=== PATIENT | female | born 1960 | race Caucasian/White ===

== ENCOUNTER 2018-11-30 17:50 | Observation (INO) ==
[2018-11-30] MEDS ORDERED: Ondansetron 4 MG/2 ML VIAL IVP ONE (18:51)
[2018-11-30] MEDS ORDERED: *HR* OxyCODONE/APAP 5/325 TABLET PO ONE (18:53)
[2018-11-30 19:14] LABS: Basophils % 0.2 %; Eosinophils % 0.1 %; Hematocrit 47.7 % (35.3-44.9); Hemoglobin 15.5 g/dL (11.5-15.4); Immature Granulocytes % 0.4 % (0-4); Lymphocytes # 0.5 K/mcL (0.6-4.6); Mean Corpuscular HGB Conc 32.5 g/dL (31.6-35.5); Mean Corpuscular Hemoglobin 28.9 pg (28.0-33.3); Mean Platelet Volume 8.6 fL (9.4-12.4); Monocytes # 0.4 K/mcL (0.0-1.3); Monocytes % 4.1 %; Neutrophils # 8.1 K/mcL (1.6-8.9); Platelet Count 194 K/mcL (140-400); Red Blood Count 5.36 M/mcL (3.82-4.97); Red Cell Distribution Width 13.9 % (11.5-14.5); Segmented Neutrophils % 90.2 %; White Blood Count 8.9 K/mcL (4.3-11.1)
--- NOTE | 2018-11-30 19:15 | Emergency Department Note ---
Disposition Clinical Impression: Fall Qualifiers: Encounter type: initial encounter Qualified Code(s): W19.XXXA - Unspecified fall, initial encounter Syncope Qualifiers: Syncope type: unspecified Qualified Code(s): R55 - Syncope and collapse Disposition: Admitted As Inpatient Condition: Fair Time of Disposition: 22:00 Fall HPI - General Chief Complaint: ED Fall Stated Complaint: FALL/WEAKNESS Time Seen by Provider: 11/30/18 18:17 Source: patient, family Limitations: no limitations Nursing Notes Reviewed: Yes Vital Signs Reviewed: Yes - History of Present Illness HPI Narrative: Ms. 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 She thinks she fell sometime this morning and was beside her bed when she woke up. She called family around 4:20 PM after she dragged herself to the phone. She had difficulty getting up because her legs were "shaking" and felt weak. Family reports she was slurring her speech on the phone and was difficult to understand. She is unclear if there are any preceding symptoms. Per family she was acting normally yesterday. Currently she is complaining of headache, non-radiating chest pain, chills, generalized weakness, abdominal pain, and nausea. She denies fevers, rashes, vision changes, dyspnea, cough, vomiting, change in bowels, hematochezia, dysuria, or edema. Of note she finished chemo several months ago and latest imaging of her chest showed clearance of her cancer. - Related Data Home Medications Medication Instructions Recorded Confirmed BuPROPion SR (12 HR) [Wellbutrin 300 mg PO BID 02/11/18 11/30/18 SR] Budesonide/Formoterol 160/4.5 2 puff IH BIDR 02/11/18 11/30/18 [Symbicort 160/4.5] Ezetimibe [Zetia] 10 mg PO DAILY 02/11/18 11/30/18 Insulin Regular U-500 [HumuLIN R 50 unit SQ TIDWM 02/11/18 11/30/18 U-500] Ipratropium/Albuterol Neb [Duoneb] 3 ml IH Q6HR 02/11/18 11/30/18 LORazepam [Ativan] 1 mg PO TID 02/11/18 11/30/18 Metoprolol Tartrate [Lopressor] 25 mg PO BID 02/11/18 11/30/18 Nitroglycerin [Nitrostat] 0.4 mg SL DAILY PRN 02/11/18 11/30/18 Roflumilast [Daliresp] 500 mcg PO DAILY 02/11/18 11/30/18 Sertraline [Zoloft] 150 mg PO DAILY 05/14/18 11/30/18 Albuterol Sulfate [Proair Hfa] 2 puff IH Q6H 06/16/18 11/30/18 Previous Rx's Medication Instructions Recorded Magic Mouthwash [Magic Mouthwash 10 ml PO Q2H PRN #960 ml 06/03/18 BLM] Benzonatate [Tessalon] 100 mg PO TID PRN #60 capsule 06/23/18 Sucralfate [Carafate] 1 gm PO QIDAC PRN #120 tablet 07/02/18 Metoclopramide [Reglan] 10 mg PO QIDAC 30 Days #1200 ml 07/14/18 Loperamide [Imodium] 2 mg PO Q4HR PRN #30 capsule 08/11/18 Fluconazole [Diflucan] 100 mg PO DAILY 7 Days #7 tablet 09/04/18 Ondansetron [Zofran ODT] 8 mg SL Q8H PRN #30 tab 09/25/18 GuaiFENesin/Codeine [Robitussin 10 - 20 ml PO Q6HR PRN 8 Days #480 10/06/18 w/Codeine] liquid MethylPREDNISolone 4 mg PO DAILY #21 tab 10/06/18 [MethylPREDNISolone Dose Pack] Loteprednol Etabonate [Lotemax] 1 appl OP BID #1 oint...g. 10/07/18 Allergies Allergy/AdvReac Type Severity Reaction Status Date / Time eszopiclone [From Lunesta] Allergy Anxiety Verified 08/11/18 09:27 gabapentin [From Neurontin] Allergy Vomiting Verified 08/11/18 09:27 meperidine [From Demerol] Allergy Itching Verified 08/11/18 09:27 metformin Allergy Diarrhea Verified 08/11/18 09:27 Review of Systems: Admits to headache, non-radiating chest pain, chills, generalized weakness, abdominal pain, and nausea. Denies fevers, rashes, vision changes, dyspnea, cough, vomiting, change in bowels, hematochezia, dysuria, or edema. Fall PMH - Past Medical History Medical history: Reports: arthritis, cancer, COPD, diabetes, fibromyalgia, hyperlipidemia, hypertension Surgical history: Reports: cholecystectomy, hysterectomy Psychiatric history: Reports: anxiety, depression, panic disorder - Social History Smoking Status: Current every day smoker Alcohol use: Reports: none Drug use: Reports: none Physical Exam GEN: No acute distress, A&O3 HEAD: Atraumatic, normocephalic EYES: Pupils symmetric and reactive to light, sclera white, conjunctiva pink HEART: RRR, normal S1 and S2, no murmurs LUNGS: Clear to auscultation bilaterally, no wheezes, rhonchi, or crackles ABD: Soft, moderate epigastric/LUQ/suprapubic tenderness, nondistended, no guarding or rigidity EXT: No edema noted, pulses 2/4 NEURO: No focal deficits, cooperative with exam, normal speech, sensation to light touch intact, strength equal and symmetric in UE and LE - General Limitations: no limitations General appearance: alert Course Vital Signs Temperature 97.8 F 11/30/18 17:57 Pulse Rate 89 11/30/18 17:57 Respiratory Rate 22 11/30/18 17:57 Blood Pressure 145/66 11/30/18 17:57 O2 Sat by Pulse Oximetry 100 11/30/18 17:57 Temperature 97.8 F 11/30/18 17:57 Pulse Rate 90 11/30/18 21:03 Respiratory Rate 14 11/30/18 21:03 Blood Pressure 147/64 11/30/18 21:03 O2 Sat by Pulse Oximetry 99 11/30/18 21:03 Oxygen Delivery Oxygen Delivery Room Air Fall - [facility] Narrative Medical decision making narrative: 58-year-old female with fall of unclear cause. She is nontoxic in appearance. There are no focal findings on neuro exam. Per family she is acting at her baseline now, but did have slurred speech earlier in the day. Labs show glucose of 56 and Hgb of 15. Otherwise CBC, BMP, lactic acid, CK, troponin and UA are normal. Chest x-ray shows no acute abnormalities. Head CT shows no acute abnormalities. CT of the cervical spine shows chronic degenerative changes. CT abdomen and pelvis shows no acute findings, but does comment on nonobstructing bilateral renal stones. With her now resolved confusion and speech difficulties, leading differential diagnoses are seizure or TIA. With her history of cancer, there would be concern of metastasis to the brain that can lead to seizure. This could be further evaluated with EEG, MRI, or neurology consult. Since the fall is so unclear, I feel it is not safe for her to go home at this time, and she could benefit from further evaluation in the hospital. Patient family are in agreement. Discussed the case with Dr. De La Fuente, who is accepting the patient for admission. - Lab Data Lab results reviewed: Yes I reviewed the patient's lab results. Result diagrams: 12/01/18 01:40 12/01/18 01:40 Lab Results 11/30/18 11/30/18 11/30/18 Range/Units 18:20 18:52 18:52 WBC 8.9 (4.3-11.1) K/mcL RBC 5.36 H (3.82-4.97) M/mcL Hgb 15.5 H (11.5-15.4) g/dL Hct 47.7 H (35.3-44.9) % MCV 89.0 (83.0-100.0) fL MCH 28.9 (28.0-33.3) pg MCHC 32.5 (31.6-35.5) g/dL RDW 13.9 (11.5-14.5) % Plt Count 194 (140-400) K/mcL MPV 8.6 L (9.4-12.4) fL Immature Gran % 0.4 (0-4) % Seg Neutrophils % 90.2 % Lymphocytes % 5.0 % Monocytes % 4.1 % Eosinophils % 0.1 % Basophils % 0.2 % Neutrophils # 8.1 (1.6-8.9) K/mcL Lymphocytes # 0.5 L (0.6-4.6) K/mcL Monocytes # 0.4 (0.0-1.3) K/mcL Eosinophils # 0.0 (0.0-0.6) K/mcL Basophils # 0.0 (0.0-0.2) K/mcL Sodium 141 (136-145) mEq/L Potassium 4.2 (3.5-5.1) mEq/L Chloride 101 (98-107) mEq/L Carbon Dioxide 29 (23-29) mEq/L BUN 10 (8-23) mg/dL Creatinine 0.59 L (0.60-1.20) mg/dL Est GFR ( Amer) > 60 (> 60) Est GFR (Non-Af Amer) > 60 (> 60) BUN/Creatinine Ratio 17 (6-26) Glucose 56 L (70-105) mg/dL Calculated Osmolality 289 (280-300) Lactic Acid (0.5-2.2) mmol/L Calcium 10.0 (8.6-10.3) mg/dL Total Bilirubin 0.4 (0.3-1.0) mg/dL AST 20 (13-39) Units/L ALT 22 (7-52) Units/L Alkaline Phosphatase 75 (34-104) Units/L Creatine Kinase (30-223) Units/L Troponin I < 0.03 (< 0.04) ng/mL Serum Total Protein 7.9 (6.4-8.9) g/dL Albumin 4.8 (3.5-5.7) g/dL Globulin 3.1 (2.4-3.5) g/dL Albumin/Globulin Ratio 1.5 (1.1-2.2) Urine Color Yellow (Yellow) Urine Clarity Clear (Clear) Urine pH 6.5 (5.0-8.0) pH Units Ur Specific [place] 1.011 (1.010-1.025) Urine Protein Trace (Neg-Trace) mg/dL Urine Glucose (UA) 100 H (Normal) mg/dL Urine Ketones Negative (Negative) mg/dL Urine Blood Negative (Negative) Urine Nitrite Negative (Negative) Urine Bilirubin Negative (Negative) Urine Urobilinogen Normal (Normal) mg/dL Ur Leukocyte Esterase Negative (Negative) Ur Culture Indicated? NO (NO) 11/30/18 11/30/18 Range/Units 18:52 18:59 WBC (4.3-11.1) K/mcL RBC (3.82-4.97) M/mcL Hgb (11.5-15.4) g/dL Hct (35.3-44.9) % MCV (83.0-100.0) fL MCH (28.0-33.3) pg MCHC (31.6-35.5) g/dL RDW (11.5-14.5) % Plt Count (140-400) K/mcL MPV (9.4-12.4) fL Immature Gran % (0-4) % Seg Neutrophils % % Lymphocytes % % Monocytes % % Eosinophils % % Basophils % % Neutrophils # (1.6-8.9) K/mcL Lymphocytes # (0.6-4.6) K/mcL Monocytes # (0.0-1.3) K/mcL Eosinophils # (0.0-0.6) K/mcL Basophils # (0.0-0.2) K/mcL Sodium (136-145) mEq/L Potassium (3.5-5.1) mEq/L Chloride (98-107) mEq/L Carbon Dioxide (23-29) mEq/L BUN (8-23) mg/dL Creatinine (0.60-1.20) mg/dL Est GFR ( Amer) (> 60) Est GFR (Non-Af Amer) (> 60) BUN/Creatinine Ratio (6-26) Glucose (70-105) mg/dL Calculated Osmolality (280-300) Lactic Acid 1.7 (0.5-2.2) mmol/L Calcium (8.6-10.3) mg/dL Total Bilirubin (0.3-1.0) mg/dL AST (13-39) Units/L ALT (7-52) Units/L Alkaline Phosphatase (34-104) Units/L Creatine Kinase 208 (30-223) Units/L Troponin I (< 0.04) ng/mL Serum Total Protein (6.4-8.9) g/dL Albumin (3.5-5.7) g/dL Globulin (2.4-3.5) g/dL Albumin/Globulin Ratio (1.1-2.2) Urine Color (Yellow) Urine Clarity (Clear) Urine pH (5.0-8.0) pH Units Ur Specific [place] (1.010-1.025) Urine Protein (Neg-Trace) mg/dL Urine Glucose (UA) (Normal) mg/dL Urine Ketones (Negative) mg/dL Urine Blood (Negative) Urine Nitrite (Negative) Urine Bilirubin (Negative) Urine Urobilinogen (Normal) mg/dL Ur Leukocyte Esterase (Negative) Ur Culture Indicated? (NO) - Radiology Data Radiology results reviewed: Yes I reviewed the patient's radiology results. - EKG Data EKG attestation: Yes I reviewed and interpreted this EKG. EKG results narrative: sinus rhythm, HR 85, PACs, and no ischemic changes Attestation Statement - Attestation Attestation: I, Tyson Crisostomo, examined this patient and my medical decision-making was reviewed with the DIE SIZER/PA/Advanced Practice Nurse/Resident Physician. I agree with the documented findings, disposition and treatment plan as described except to the extent set forth below. 58-year-old female presents emergency Department with concerns of fall and weakness. Patient states she believes that she was getting up and walking the bathroom during the night. The next thing she remembers is waking up on the g round and unable to stand. Patient states she had intermittent shaking of the bilateral upper and lower extremities however she remembers these episodes. Patient has a history of small cell lung cancer, she recently completed a round of chemotherapy. She had what she described as "prophylactic radiation of the brain" but has not had metastasis to the brain as of yet. She has refused outpatient MRI secondary to her increased anxiety in the past. Laboratory evaluation does not reveal significant abnormality for her baseline. CT of the head and neck does not reveal acute fracture or internal hemorrhage. CT of the abdomen pelvis does not reveal acute pathology. Patient was updated regarding laboratory and imaging results. Patient will be brought in the emergency department for evaluation of syncope versus seizure in addition to weakness.
[2018-11-30 19:23] LABS: Bilirubin,Urine Negative (Negative); Blood,Urine Negative (Negative); Clarity,Urine Clear (Clear); Color,Urine Yellow (Yellow); Glucose,Urine (UA) 100 mg/dL (Normal); Ketones,Urine Negative (Negative); Leukocyte Esterase,Urine Negative (Negative); Nitrite,Urine Negative (Negative); PH,Urine 6.5 pH Units (5.0-8.0); Protein,Urine Trace mg/dL (Neg-Trace); Specific Gravity,Urine 1.011 (1.010-1.025); Urobilinogen,Urine Normal (Normal)
[2018-11-30 19:26] LABS: Alanine Aminotransferase 22 Units/L (7-52); Albumin 4.8 g/dL (3.5-5.7); Albumin/Globulin Ratio 1.5 (1.1-2.2); Alkaline Phosphatase 75 Units/L (34-104); Aspartate Amino Transferase 20 Units/L (13-39); BUN/Creatinine Ratio 17 (6-26); Bilirubin,Total 0.4 mg/dL (0.3-1.0); Blood Urea Nitrogen 10 mg/dL (8-23); Carbon Dioxide 29 mEq/L (23-29); Chloride 101 mEq/L (98-107); Globulin 3.1 g/dL (2.4-3.5); Glucose 56 mg/dL (70-105); Osmolality,Calculated 289 (280-300); Potassium 4.2 mEq/L (3.5-5.1); Sodium 141 mEq/L (136-145); Total Protein 7.9 g/dL (6.4-8.9); Troponin I < 0.03 ng/mL (< 0.04); eGFR For African Americans > 60 (> 60); eGFR For Non-African Americans > 60 (> 60)
[2018-11-30] MEDS ORDERED: *HR* LORazepam 1 MG TABLET PO ONE (21:15)
[2018-11-30] MEDS: Nicotine 21 MG PATCH.TD24 TD SCH (21:23)
[2018-11-30] MEDS ORDERED: Naloxone 0.4 MG/ML INJ IVP PRN (22:33)
--- NOTE | 2018-11-30 22:46 | Internal Med History&Physical ---
<Suha Titus Jeff - Last Filed: 12/01/18 04:44> Date of Encounter: 12/01/18 Time of Encounter: 01:00 Internal Medicine - H&P: HPI Chief complaint: Syncope Admitted From: Home History of present illness: Ms. Loza is a 58 year old female with past medical history of small cell lung cancer, coronary artery disease, and hypertension. Patient presented to the ED after waking up on the floor unable to walk. Patient states she is awake during the night and sleeps during the day. Patient ate dinner at night and went to bed about 8 AM on 11/30/18. Patient remembers going to sleep with her CPAP on, although hours later does remember awakening to use the restroom. Patient thinks she went back to bed but afterwards remembers waking up on the floor next to the bed. Patient states upon awakening she felt excruciating pain 10 out of 10 in the lower back hips and legs bilaterally. Patient states legs were numb and tingling bilaterally. Patient denies blurred vision or dizziness. Patient does recall waking up at bedside closer to her night stand, but states she did not have any pain on her head. Patient states she did have full control of her upper extremities. Patient denies chest pain, shortness of breath, nausea, vomiting, dizziness, blurred vision. Patient does admit to confusion. Close to 4pm patient was able to crawl to the restroom close to her bedroom to call her children patients children heard slurred speech over the phone and decided to call EMS. Patient has recently completed a course of prophylactic radiation to the brain, radiation to the chest and chemotherapy in the beginning of October. Patient remains a smoker of one pack per day for 47 years. Patient has been admitted due to concerns of weakness and slurred speech. Past Med Surg Social Fam HX - Past Medical History Medical history: arthritis, cancer, COPD, diabetes, fibromyalgia, hyperlipidemia, hypertension Additional medical history: lung cancer Psychiatric history: anxiety, depression, panic disorder - Past Surgical History Surgical History: cholecystectomy, hysterectomy Additional surgical history: TONSILS,vocal polyps, - Social History Smoking Status: Current every day smoker Smokeless Tobacco Status: No Alcohol use: none Drug use: none - Family History Mother Living Status: Age at : 61 Cause of : COPD Father Living Status: Age at : 52 Cause of : lung cancer Internal Medicine - H&P: Meds BuPROPion SR (12 HR) [Wellbutrin SR] 300 mg PO BID 02/11/18 [History] Budesonide/Formoterol 160/4.5 [Symbicort 160/4.5] 2 puff IH BIDR 02/11/18 [History] Ezetimibe [Zetia] 10 mg PO DAILY 02/11/18 [History] Insulin Regular U-500 [HumuLIN R U-500] 50 unit SQ TIDWM 02/11/18 [History] Ipratropium/Albuterol Neb [Duoneb] 3 ml IH Q6HR 02/11/18 [History] LORazepam [Ativan] 1 mg PO TID 02/11/18 [History] Metoprolol Tartrate [Lopressor] 25 mg PO BID 02/11/18 [History] Nitroglycerin [Nitrostat] 0.4 mg SL DAILY PRN 02/11/18 [History] Roflumilast [Daliresp] 500 mcg PO DAILY 02/11/18 [History] Sertraline [Zoloft] 150 mg PO DAILY 05/14/18 [History] Magic Mouthwash [Magic Mouthwash BLM] 10 ml PO Q2H PRN #960 ml 06/03/18 [Rx] Albuterol Sulfate [Proair Hfa] 2 puff IH Q6H 06/16/18 [History] Benzonatate [Tessalon] 100 mg PO TID PRN #60 capsule 06/23/18 [Rx] Sucralfate [Carafate] 1 gm PO QIDAC PRN #120 tablet 07/02/18 [Rx] Metoclopramide [Reglan] 10 mg PO QIDAC 30 Days #1200 ml 07/14/18 [Rx] Loperamide [Imodium] 2 mg PO Q4HR PRN #30 capsule 08/11/18 [Rx] Fluconazole [Diflucan] 100 mg PO DAILY 7 Days #7 tablet 09/04/18 [Rx] Ondansetron [Zofran ODT] 8 mg SL Q8H PRN #30 tab 09/25/18 [Rx] GuaiFENesin/Codeine [Robitussin w/Codeine] 10 - 20 ml PO Q6HR PRN 8 Days #480 li quid 10/06/18 [Rx] MethylPREDNISolone [MethylPREDNISolone Dose Pack] 4 mg PO DAILY #21 tab 10/06/18 [Rx] Loteprednol Etabonate [Lotemax] 1 appl OP BID #1 oint...g. 10/07/18 [Rx] Allergy/AdvReac Type Severity Reaction Status Date / Time eszopiclone [From Lunesta] Allergy Anxiety Verified 08/11/18 09:27 gabapentin [From Neurontin] Allergy Vomiting Verified 08/11/18 09:27 meperidine [From Demerol] Allergy Itching Verified 08/11/18 09:27 metformin Allergy Diarrhea Verified 08/11/18 09:27 All Systems PM: A 10-system review of systems was performed and is negative for pertinent findings except as documented above in the HPI. Review of systems: Constitutional: Denies Fever, Chills, Dizziness Respiratory: Denies Shortness of breath, hemoptysis, Dyspnea at rest, or activity Cardiovascular: Denies Chest pain, Peripheral edema , palpitations Gastrointestinal: Denies hematochezia, nausea, vomiting , admits occasional Abdominal pain Genitourinary: Denies Painful urination, hematuria, urinary retention Endocrine: denies unintentional Significant weight changes Skin: Denies rashes, or unexplained bruising - Constitutional Vitals: Temp Pulse Resp BP Pulse Ox 97.8 F 90 14 147/64 99 11/30/18 17:57 11/30/18 21:03 11/30/18 21:03 11/30/18 21:03 11/30/18 21:03 Exam: Gen: alert/oriented, no acute distress. no dysarthria noted, clear speech. Head: atraumatic, normocephalic. non tender to palpation ENT: EOMI, JESÚS, no oropharyngeal erythema, mucous membranes moist, Neck: No thyromegaly appreciated. Neck supple no cervical lymphadenopathy. Resp: CTAB, no wheezing, mild rhonchi in L lower lung bases, or rhales. CV: RRR, Normal S1 and S2. No murmur, gallops, or rubs. GI/Abdominal exam: obese, bowel sounds x4, soft, non-tender, non- distended; no hepatosplenomegaly Skin: intact; no rashes, lesions, or bruising. Ext: No cyanosis or edema. pulses +2/4 bilaterally UE and LE. Neuro: strength 3/5 in RUE, 5/5 in LUE, 5/5 in LE b/l; sensation intact UE and LE b/l; +2/4 DTR UE and LE b/l; stuttering finger to nose test bilaterally, cooperative with exam. Internal Med - H&P Results - Labs CBC & Chem 7: 12/01/18 01:40 12/01/18 01:40 Labs: Short CBC 11/30/18 Range/Units 18:52 WBC 8.9 (4.3-11.1) K/mcL Hgb 15.5 H (11.5-15.4) g/dL Hct 47.7 H (35.3-44.9) % Plt Count 194 (140-400) K/mcL Neutrophils # 8.1 (1.6-8.9) K/mcL BMP 11/30/18 18:52 Sodium 141 Potassium 4.2 Chloride 101 Carbon Dioxide 29 BUN 10 Creatinine 0.59 L Glucose 56 L Calcium 10.0 Cardiac Enzymes 11/30/18 Range/Units 18:52 Troponin I < 0.03 (< 0.04) ng/mL Liver Function 11/30/18 Range/Units 18:52 Total Bilirubin 0.4 (0.3-1.0) mg/dL AST 20 (13-39) Units/L ALT 22 (7-52) Units/L Alkaline Phosphatase 75 (34-104) Units/L Albumin 4.8 (3.5-5.7) g/dL Urine 11/30/18 Range/Units 18:20 Urine Color Yellow (Yellow) Urine Clarity Clear (Clear) Urine pH 6.5 (5.0-8.0) pH Units Ur Specific [place] 1.011 (1.010-1.025) Urine Protein Trace (Neg-Trace) mg/dL Urine Glucose (UA) 100 H (Normal) mg/dL - Impressions ITS Impressions Chest X-Ray 11/30/18 18:41 IMPRESSION: 1. No acute cardiopulmonary disease. D/ / Hoa Glez MD / Hoa Glez MD Interpreting Provider: Hoa Glez MD Abdomen/Pelvis CT 11/30/18 18:55 IMPRESSION: 1. No CT evidence of acute traumatic abnormality involving the abdomen or pelvis. 2. Bilateral nephrolithiasis without hydronephrosis or ureter calculus evident. 3. Cholecystectomy. 4. Stable benign adenoma right adrenal gland requires no additional evaluation or follow-up. D/ / Kavin Sainz / Kavin Sainz Interpreting Provider: Kavin Sainz Cervical Spine CT 11/30/18 18:55 IMPRESSION: No acute intracranial abnormality. Degenerative changes involving the cervical spine described above. No cervical fracture or acute traumatic subluxation. Grade 1 degenerative anterolisthesis C4 on C5. Emphysema. Note that if pain persists or worsens, or if clinically there is concern for CT occult acute cervical abnormality, flexion/extension C-spine series or MRI cervical spine may be considered for additional evaluation. D/ / Kavin Sainz / Kavin Sainz Interpreting Provider: Kavin Sainz Head CT 11/30/18 18:55 IMPRESSION: No acute intracranial abnormality. Degenerative changes involving the cervical spine described above. No cervical fracture or acute traumatic subluxation. Grade 1 degenerative anterolisthesis C4 on C5. Emphysema. Note that if pain persists or worsens, or if clinically there is concern for CT occult acute cervical abnormality, flexion/extension C-spine series or MRI cervical spine may be considered for additional evaluation. D/ / Kavin Sainz / Kavin Sainz Interpreting Provider: Kavin Sainz - Assessment and Plan (1) Weakness Current Visit: Yes Status: Acute Assessment and plan: He was 58-year-old female with history of small cell lung cancer having completed last radiation and chemotherapy to brain and chest one month ago. She presents today after a syncopal episode and weakness to lower extremities. On arrival to ED patient was hemodynamically stable, and afebrile. A UA, CBC, creatinine kinase, chest x-ray were completed which were within normal limits and showed no acute cardiopulmonary disease. CT abdomen and pelvis showed bilateral nephrolithiasis without hydronephrosis but otherwise normal. Patient's head CT showed degenerative changes with cervical spine otherwise unremarkable. With current imaging and labs there are no signs of infection. Although the patient's past medical history and current presentation is important to rule out CVA, TIA, metastases to brain, metastases to spine, myelopathy, infection. Plan: - Upon speaking to the patient, patient cannot tolerate MRI due to phobia. We will obtain CT angiogram of head. - She is encouraged to obtain open MRI of brain on outpatient basis. - 1 L normal saline - We will repeat troponin - Place on telemetry, pulse ox. - Obtain transthoracic echo - Obtain lipid panel - Obtain hemoglobin A1c - Fall precautions - Neuro checks every 4 - PT/OT consult (2) Hypoglycemia Current Visit: Yes Status: Acute Assessment and plan: On arrival to ED patient was found to have a glucose of 56. Plan; -Hypoglycemic precautions. -Accu-Cheks at bedtime and before meals. - Basal insulin before bedtime. - Sliding scale insulin before meals (3) Diabetes Current Visit: Yes Status: Acute Assessment and plan: Patient is currently a type II diabetic and on arrival to ED was found to be hypoglycemic. Will maintain blood glucose control during admission. Plan; -Sliding-scale insulin before meals -Basal insulin at bedtime -Accu-Cheks before meals and at bedtime. Qualifiers: Qualified Code(s): E11.9 - Type 2 diabetes mellitus without complications - Time Spent With Patient Total time spent is greater than 50% in coordination of care (as documented) at patient's floor/unit and/or counseling patient: <Bonita De La Fuente - Last Filed: 12/01/18 05:56> Date of Encounter: 12/01/18 All Systems PM: A 10-system review of systems was performed and is negative for pertinent findings except as documented above in the HPI. - Constitutional Vitals: Temp Pulse Resp BP Pulse Ox 98.2 F 104 16 137/77 92 11/30/18 22:47 11/30/18 22:47 11/30/18 22:47 11/30/18 22:47 11/30/18 22:47 Internal Med - H&P Results - Labs CBC & Chem 7: 12/01/18 01:40 12/01/18 01:40 Labs: Short CBC 11/30/18 Range/Units 18:52 WBC 8.9 (4.3-11.1) K/mcL Hgb 15.5 H (11.5-15.4) g/dL Hct 47.7 H (35.3-44.9) % Plt Count 194 (140-400) K/mcL Neutrophils # 8.1 (1.6-8.9) K/mcL BMP 11/30/18 18:52 Sodium 141 Potassium 4.2 Chloride 101 Carbon Dioxide 29 BUN 10 Creatinine 0.59 L Glucose 56 L Calcium 10.0 Cardiac Enzymes 11/30/18 Range/Units 18:52 Troponin I < 0.03 (< 0.04) ng/mL Liver Function 11/30/18 Range/Units 18:52 Total Bilirubin 0.4 (0.3-1.0) mg/dL AST 20 (13-39) Units/L ALT 22 (7-52) Units/L Alkaline Phosphatase 75 (34-104) Units/L Albumin 4.8 (3.5-5.7) g/dL Urine 11/30/18 Range/Units 18:20 Urine Color Yellow (Yellow) Urine Clarity Clear (Clear) Urine pH 6.5 (5.0-8.0) pH Units Ur Specific [place] 1.011 (1.010-1.025) Urine Protein Trace (Neg-Trace) mg/dL Urine Glucose (UA) 100 H (Normal) mg/dL - Impressions ITS Impressions Chest X-Ray 11/30/18 18:41 IMPRESSION: 1. No acute cardiopulmonary disease. D/ / Hoa Glez MD / Hoa Glez MD Interpreting Provider: Hoa Glez MD Abdomen/Pelvis CT 11/30/18 18:55 IMPRESSION: 1. No CT evidence of acute traumatic abnormality involving the abdomen or pelvis. 2. Bilateral nephrolithiasis without hydronephrosis or ureter calculus evident. 3. Cholecystectomy. 4. Stable benign adenoma right adrenal gland requires no additional evaluation or follow-up. D/ / Kavin Sainz / Kavin Sainz Interpreting Provider: Kavin Sainz Cervical Spine CT 11/30/18 18:55 IMPRESSION: No acute intracranial abnormality. Degenerative changes involving the cervical spine described above. No cervical fracture or acute traumatic subluxation. Grade 1 degenerative anterolisthesis C4 on C5. Emphysema. Note that if pain persists or worsens, or if clinically there is concern for CT occult acute cervical abnormality, flexion/extension C-spine series or MRI cervical spine may be considered for additional evaluation. D/ / Kavin Sainz / Kavin Sainz Interpreting Provider: Kavin Sainz Head CT 11/30/18 18:55 IMPRESSION: No acute intracranial abnormality. Degenerative changes involving the cervical spine described above. No cervical fracture or acute traumatic subluxation. Grade 1 degenerative anterolisthesis C4 on C5. Emphysema. Note that if pain persists or worsens, or if clinically there is concern for CT occult acute cervical abnormality, flexion/extension C-spine series or MRI cervical spine may be considered for additional evaluation. D/ / Kavin Sainz / Kavin Sainz Interpreting Provider: Kavin Sainz - Time Spent With Patient Total time spent is greater than 50% in coordination of care (as documented) at patient's floor/unit and/or counseling patient: - Attending Attestation I performed a history and physical exam of the patient on 11/30/18 and discussed management with the resident. I reviewed the resident's note and agree with the documented findings and plan of care. Fide Loza is a 58-year-old obese woman with COPD secondary to tobacco use, obstructive sleep apnea and diabetes stage IIIa small cell carcinoma of the right lung who has underwent chemotherapy and radiation therapy as well as prophylactic cranial irradiation was brought to the emergency room by EMS after being down at home for an unspecified length of time. It is stated that she found herself on the floor beside her bed when she woke up this morning and she was unable to get up because she was weak but ultimately was able to drag herself to the phone around 4 PM where she called her family who noted that her speech was slurred and therefore called EMS. Family reported that over the past days she has been in her normal state of health without any acute issues. On arrival she had nonspecific complaints of headache, chest pain, generalized weakness, abdominal pain and nausea. Denies productive cough, fever, dysuria, vomiting or diarrhea. She has since completed her radiation and chemotherapeutic sessions 3 months ago. In the ER she was clinically and hemodynamically stable with family members acknowledging that she was at her baseline. Her lab and urine studies were grossly within normal limits. Compared to CT images showed no acute findings. She is admitted for observation. Physical exam is remarkable for no focal deficits. She reports feeling well and has no complaints but says she cant explain what happened to her. It is unclear if she had a mechanical fall and forgot or she rolled out from bed but more importantly differentials include TIA given the episode of slurred speech and difficulty with ambulation. Another differential is a seizure episode from possible brain mets and may have had a post ictal state and therefore could not remember what happened. A third differential to consider is hypoglycemia, noting her glucose on arrival was in the 50s. We will observe her on telemetry overnight and if there are any new symptoms or evolution she should undergo repeat brain imaging immediately. I suggested she have an MRI done in the morning however she refuses, stating she has panic disorder and claustrophob ia and cannot tolerate. Would advise that upon discharge she be followed by her primary physican and perhaps consideration be given towards an open MRI. YAQUELIN CHATTERJEE.
[2018-11-30] MEDS ORDERED: D5% in Water 1,000 ML IVC PRN (23:46)
[2018-11-30] MEDS ORDERED: Dextrose Gel 15 GM/37.5 ML TUBE PO PRN ×2 (23:46)
[2018-11-30] MEDS ORDERED: *HR* Dextrose 50 % in Water (Syg) 50 ML SYRINGE IVP PRN (23:46)
[2018-11-30] MEDS ORDERED: *HR* OxyCODONE Immed Rel 5 MG TABLET PO PRN (23:54)
[2018-11-30] MEDS ORDERED: Acetaminophen 325 MG TABLET PO PRN (23:54)
[2018-11-30] MEDS ORDERED: traMADol 50 MG TABLET PO PRN (23:54)
[2018-12-01 02:25] LABS: Basophils % 0.3 %; Eosinophils # 0.1 K/mcL (0.0-0.6); Eosinophils % 0.6 %; Hematocrit 41.9 % (35.3-44.9); Immature Granulocytes % 0.4 % (0-4); Lymphocytes % 12.3 %; Mean Corpuscular HGB Conc 31.7 g/dL (31.6-35.5); Mean Corpuscular Hemoglobin 28.1 pg (28.0-33.3); Mean Corpuscular Volume 88.4 fL (83.0-100.0); Mean Platelet Volume 8.9 fL (9.4-12.4); Monocytes # 0.5 K/mcL (0.0-1.3); Monocytes % 6.9 %; Neutrophils # 6.2 K/mcL (1.6-8.9); Platelet Count 189 K/mcL (140-400); Red Blood Count 4.74 M/mcL (3.82-4.97); Red Cell Distribution Width 13.8 % (11.5-14.5); Segmented Neutrophils % 79.5 %; White Blood Count 7.8 K/mcL (4.3-11.1)
[2018-12-01 02:29] LABS: Hemoglobin 13.3 g/dL (11.5-15.4); Prothrombin Time 11.7 Seconds (9.4-12.1)
[2018-12-01 02:46] LABS: Alanine Aminotransferase 17 Units/L (7-52); Albumin 4.2 g/dL (3.5-5.7); Albumin/Globulin Ratio 1.7 (1.1-2.2); Alkaline Phosphatase 64 Units/L (34-104); Aspartate Amino Transferase 19 Units/L (13-39); BUN/Creatinine Ratio 14 (6-26); Bilirubin,Total 0.4 mg/dL (0.3-1.0); Blood Urea Nitrogen 10 mg/dL (8-23); Calcium 9.6 mg/dL (8.6-10.3); Carbon Dioxide 28 mEq/L (23-29); Chloride 100 mEq/L (98-107); Chol/HDL Ratio 4.7 (0-4.9); Cholesterol 207 mg/dL (< 200); Globulin 2.5 g/dL (2.4-3.5); Glucose 123 mg/dL (70-105); HDL Cholesterol 44 mg/dL (40-59); LDL Cholesterol,Calculated 117 mg/dL (0-99); Magnesium 1.8 mg/dL (1.6-2.6); Osmolality,Calculated 288 (280-300); Potassium 3.8 mEq/L (3.5-5.1); Sodium 139 mEq/L (136-145); Total Protein 6.7 g/dL (6.4-8.9); Triglycerides 232 mg/dL (< 150); eGFR For African Americans > 60 (> 60); eGFR For Non-African Americans > 60 (> 60)
[2018-12-01] MEDS ORDERED: Isovue-370 500 ML BOTTLE IVP ONE (03:49)
[2018-12-01] MEDS ORDERED: Ipratropium/Albuterol Neb 3 ML IH SCH (04:00)
[2018-12-01] MEDS: 0.9 % Sodium Chloride 1,000 ML IVC SCH ×2 (06:01→17:39)
[2018-12-01] MEDS: Budesonide/Formoterol 160/4.5 1 PUFF INH IH SCH ×2 (07:44→20:24)
[2018-12-01] MEDS ORDERED: Sucralfate 1 GM TABLET PO PRN (07:47)
[2018-12-01] MEDS ORDERED: Benzonatate 100 MG CAPSULE PO PRN (07:47)
[2018-12-01] MEDS ORDERED: NON-FORMULARY MEDICATION 1 EACH EACH (Magic Mouthwash [Magic Mouthwash Blm] 10 ML) PO PRN (07:47)
[2018-12-01] MEDS: Ipratropium/Albuterol Neb 3 ML IH PRN ×3 (07:48→20:29)
[2018-12-01 08:34] LABS: Estimated Average Glucose 235 mg/dl
[2018-12-01] MEDS ORDERED: (Roflumilast [Daliresp] 500 MCG) PO SCH (09:00)
[2018-12-01] MEDS ORDERED: LOTEPREDNOL ETABONATE OP SCH (09:00)
[2018-12-01] MEDS ORDERED: ZETIA 10 MG PO SCH (09:00)
[2018-12-01] MEDS: *HR* LORazepam 1 MG TABLET PO SCH ×3 (09:33→21:19)
[2018-12-01] MEDS: Insulin LISPRO 300 UNITS/3 ML VIAL SQ SCH ×5 (09:33→17:31)
[2018-12-01] MEDS: BuPROPion SR (12 HR) 150 MG TABLET PO SCH ×2 (09:33→21:20)
[2018-12-01] MEDS: Fluconazole 100 MG TABLET PO SCH (09:34)
[2018-12-01] MEDS: Aspirin Enteric Coated 81 MG Tablet PO SCH (09:35)
[2018-12-01] MEDS: Nicotine 21 MG PATCH.TD24 TD SCH (09:35)
--- NOTE | 2018-12-01 10:35 | Internal Med Progress Note ---
Hospitalist Progress Note - Encounter Date of Encounter: 12/01/18 Time of Encounter: 10:32 - Subjective Interval History: Ms. Loza is a 58 year old female with past medical history of small cell lung cancer, coronary artery disease, and hypertension. Patient presented to the ED after waking up on the floor unable to walk. Patient states she is awake during the night and sleeps during the day. Patient ate dinner at night and went to bed about 8 AM on 11/30/18. Patient remembers going to sleep with her CPAP on, although hours later does remember awakening to use the restroom. Patient thinks she went back to bed but afterwards remembers waking up on the floor next to the bed. Patient states upon awakening she felt excruciating pain 10 out of 10 in the lower back hips and legs bilaterally. Patient states legs were numb and tingling bilaterally. Patient denies blurred vision or dizziness. Patient does recall waking up at bedside closer to her night stand, but states she did not have any pain on her head. Patient states she did have full control of her upper extremities. Patient denies chest pain, shortness of breath, nausea, vomiting, dizziness, blurred vision. Patient does admit to confusion. Close to 4pm patient was able to crawl to the restroom close to her bedroom to call her children patients children heard slurred speech over the phone and decided to call EMS. Patient has recently completed a course of prophylactic radiation to the brain, radiation to the chest and chemotherapy in the beginning of October. Patient remains a smoker of one pack per day for 47 years. Patient has been admitted due to concerns of weakness and slurred speech. Patient seen and examined in the room. She reported she was able to lift up both lower extremities. She did report back pain and bilateral leg pain. She endorsed she complete whole brain radiation in October and his last chemotherapy was couple months ago. Overnight, she reported absence of fever, chills, night sweats. She denies syncope, lightheadedness, or confusion. - Exam Vitals: Temp Pulse Resp BP Pulse Ox 98.5 F 111 16 112/61 93 12/01/18 07:59 12/01/18 07:59 12/01/18 07:59 12/01/18 07:59 12/01/18 07:59 Exam: Gen: alert/oriented, no acute distress. no dysarthria noted, clear speech. Head: atraumatic, normocephalic. non tender to palpation ENT: EOMI, JESÚS, no oropharyngeal erythema, mucous membranes moist, Neck: No thyromegaly appreciated. Neck supple no cervical lymphadenopathy. Resp: CTAB, no wheezing, mild rhonchi in L lower lung bases, or rhales. CV: RRR, Normal S1 and S2. No murmur, gallops, or rubs. GI/Abdominal exam: obese, bowel sounds x4, soft, non-tender, non- distended; no hepatosplenomegaly Skin: intact; no rashes, lesions, or bruising. Ext: No cyanosis or edema. pulses +2/4 bilaterally UE and LE. Neuro: strength 5/5 in RUE, 5/5 in LUE, 5/5 in LE b/l; sensation intact UE and LE b/l; +2/4 DTR UE and LE b/l; normal finger to nose test bilaterally, cooperative with exam. - Assessment and Plan (1) Fall Current Visit: Yes Status: Acute Assessment and Plan: Patient reported unwitnessed fall at home is associated paraplegia. CT of her head has no acute changes. Cervical spine reported degenerative change without fracture or spinal mass. Muscle strength of both legs symptoms return to baseline, although patient still reported bilateral leg pain on palpation and back pain. Patient recently received chemotherapy and radiation to brain because of lung cancer. CTA of her head was performed this morning, pending report. We will check vitamin B12, vitamin D, and TSH level. We will start patient on multivitamin B supplementation. Pending PT/OT evaluation. (2) Syncope Current Visit: Yes Status: Acute Assessment and Plan: We will check orthostatic BP. Given recent chemotherapy/radiation treatment, patient likely having physical deconditioning. Pending echocardiogram. (3) Weakness Current Visit: Yes Status: Acute Assessment and Plan: Bilateral leg weakness/unable to ambulate improved. Pending CTA report. Pending vitamin B12, vitamin D, TSH level. PT/OT consult, appreciate help. (4) Diabetes Current Visit: No Status: Chronic Assessment and Plan: Poorly controlled, A1c 9.8. Resume basal insulin at home dose, decrease bolus dose to half in addition to insulin sliding scale. And recently was started on oral steroids due to chemotherapy/radiation. We will adjust insulin dose based on Accu-Chek results. (5) Lung cancer Current Visit: No Status: Acute Assessment and Plan: Follow-up with Dr. Oakes and Dr. Ace as outpatient. - Time Spent with Patient Total time spent is greater than 50% in coordination of care (as documented) at patient's floor/unit and/or counseling patient: Greater than 35 minutes Plan of Care Discussed with: patient Internal Medicine: Result - Labs CBC & Chem 7: 12/01/18 01:40 12/01/18 01:40 Labs: Short CBC 11/30/18 12/01/18 Range/Units 18:52 01:40 WBC 8.9 7.8 (4.3-11.1) K/mcL Hgb 15.5 H 13.3 D (11.5-15.4) g/dL Hct 47.7 H 41.9 (35.3-44.9) % Plt Count 194 189 (140-400) K/mcL Neutrophils # 8.1 6.2 (1.6-8.9) K/mcL BMP 11/30/18 12/01/18 18:52 01:40 Sodium 141 139 Potassium 4.2 3.8 Chloride 101 100 Carbon Dioxide 29 28 BUN 10 10 Creatinine 0.59 L 0.71 Glucose 56 L 123 H Calcium 10.0 9.6 Cardiac Enzymes 11/30/18 Range/Units 18:52 Troponin I < 0.03 (< 0.04) ng/mL Liver Function 11/30/18 12/01/18 Range/Units 18:52 01:40 Total Bilirubin 0.4 0.4 (0.3-1.0) mg/dL AST 20 19 (13-39) Units/L ALT 22 17 (7-52) Units/L Alkaline Phosphatase 75 64 (34-104) Units/L Albumin 4.8 4.2 (3.5-5.7) g/dL Urine 11/30/18 Range/Units 18:20 Urine Color Yellow (Yellow) Urine Clarity Clear (Clear) Urine pH 6.5 (5.0-8.0) pH Units Ur Specific [place] 1.011 (1.010-1.025) Urine Protein Trace (Neg-Trace) mg/dL Urine Glucose (UA) 100 H (Normal) mg/dL - ABG Interpretation ABG results: PT/INR, D-dimer PT 11.7 Seconds (9.4-12.1) 12/01/18 01:40 - Impressions Impressions Chest X-Ray 11/30/18 18:41 IMPRESSION: 1. No acute cardiopulmonary disease. D/ / Hoa Glez MD / Hoa Glez MD Interpreting Provider: Hoa Glez MD Abdomen/Pelvis CT 11/30/18 18:55 IMPRESSION: 1. No CT evidence of acute traumatic abnormality involving the abdomen or pelvis. 2. Bilateral nephrolithiasis without hydronephrosis or ureter calculus evident. 3. Cholecystectomy. 4. Stable benign adenoma right adrenal gland requires no additional evaluation or follow-up. D/ / Kavin Sainz / Kavin Sainz Interpreting Provider: Kavin Sainz Cervical Spine CT 11/30/18 18:55 IMPRESSION: No acute intracranial abnormality. Degenerative changes involving the cervical spine described above. No cervical fracture or acute traumatic subluxation. Grade 1 degenerative anterolisthesis C4 on C5. Emphysema. Note that if pain persists or worsens, or if clinically there is concern for CT occult acute cervical abnormality, flexion/extension C-spine series or MRI cervical spine may be considered for additional evaluation. D/ / Kavin Sainz / Kavin Sainz Interpreting Provider: Kavin Sainz Head CT 11/30/18 18:55 IMPRESSION: No acute intracranial abnormality. Degenerative changes involving the cervical spine described above. No cervical fracture or acute traumatic subluxation. Grade 1 degenerative anterolisthesis C4 on C5. Emphysema. Note that if pain persists or worsens, or if clinically there is concern for CT occult acute cervical abnormality, flexion/extension C-spine series or MRI cervical spine may be considered for additional evaluation. D/ / Kavin Sainz / Kavin Sainz Interpreting Provider: Kavin Sainz Consult Discharge Plan - Plan Referrals: Nithin Lopez DO [Primary Care Provider] - (Appointment has been requested. ) (1) Fall Qualifiers: Encounter type: initial encounter Qualified Code(s): W19.XXXA - Unspecified fall, initial encounter (2) Syncope Qualifiers: Syncope type: unspecified Qualified Code(s): R55 - Syncope and collapse (4) Diabetes Qualifiers: Diabetes mellitus type: type 2 Diabetes mellitus complication status: with other specified complication (5) Lung cancer Qualifiers: Laterality: unspecified laterality Lung location: unspecified part of lung Qualified Code(s): C34.90 - Malignant neoplasm of unspecified part of unspecified bronchus or lung
[2018-12-01 11:45] LABS: Thyroid Stimulating Hormone 0.631 mcIU/mL (0.340-5.600)
[2018-12-01 11:54] LABS: Vitamin B12 304 pg/mL (250-1100); Vitamin D 25 Hydroxy 17 ng/mL (30-80)
[2018-12-01] MEDS: Vitamin B Complex/Vit C/Vit E 1 EACH TABLET PO SCH (12:30)
[2018-12-01] MEDS: GuaiFENesin/Codeine Oral Soln 5 ML UDC PO PRN ×2 (16:08→21:19)
[2018-12-01] MEDS: *HR* Heparin 5,000 UNIT/ML VIAL SQ SCH (17:32)
[2018-12-01] MEDS ORDERED: Insulin DETEMIR 100 UNIT/ML X5UNITS SQ SCH (21:00)
[2018-12-02 04:30] LABS: Mean Corpuscular HGB Conc 31.7 g/dL (31.6-35.5); Mean Corpuscular Hemoglobin 28.6 pg (28.0-33.3); Mean Corpuscular Volume 90.3 fL (83.0-100.0); Mean Platelet Volume 8.8 fL (9.4-12.4); Platelet Count 158 K/mcL (140-400); Red Blood Count 4.54 M/mcL (3.82-4.97); Red Cell Distribution Width 14.1 % (11.5-14.5); White Blood Count 4.9 K/mcL (4.3-11.1)
[2018-12-02 04:49] LABS: BUN/Creatinine Ratio 19 (6-26); Blood Urea Nitrogen 14 mg/dL (8-23); Calcium 9.1 mg/dL (8.6-10.3); Carbon Dioxide 24 mEq/L (23-29); Chloride 101 mEq/L (98-107); Glucose 347 mg/dL (70-105); Osmolality,Calculated 294 (280-300); Potassium 4.4 mEq/L (3.5-5.1); Sodium 135 mEq/L (136-145); eGFR For African Americans > 60 (> 60); eGFR For Non-African Americans > 60 (> 60)
[2018-12-02] MEDS: *HR* Heparin 5,000 UNIT/ML VIAL SQ SCH (05:34)
[2018-12-02] MEDS: Ipratropium/Albuterol Neb 3 ML IH PRN (07:51)
[2018-12-02] MEDS: Budesonide/Formoterol 160/4.5 1 PUFF INH IH SCH (07:51)
[2018-12-02] MEDS ORDERED: BuPROPion XL (24 HR) 150 MG TABLET PO SCH (09:00)
[2018-12-02] MEDS ORDERED: Cholecalciferol (D-3) 1,000 UNIT (25MCG) TABLET PO SCH (09:00)
[2018-12-02] MEDS: 0.9 % Sodium Chloride 1,000 ML IVC SCH ×2 (09:20→11:01)
[2018-12-02] MEDS: Fluconazole 100 MG TABLET PO SCH (09:21)
[2018-12-02] MEDS: Aspirin Enteric Coated 81 MG Tablet PO SCH (09:21)
[2018-12-02] MEDS: Insulin LISPRO 300 UNITS/3 ML VIAL SQ SCH ×4 (09:21→12:31)
[2018-12-02] MEDS: *HR* LORazepam 1 MG TABLET PO SCH (09:21)
[2018-12-02] MEDS: Nicotine 21 MG PATCH.TD24 TD SCH (09:22)
[2018-12-02] MEDS: Vitamin B Complex/Vit C/Vit E 1 EACH TABLET PO SCH (09:22)
[2018-12-02] MEDS: BuPROPion SR (12 HR) 150 MG TABLET PO SCH (09:49)
[2018-12-02] MEDS ORDERED: Perflutren Lipid Microsphere 1.3 ML in 0.9 % Sodium Chloride 8.7 ML IVP ONE (10:41)
[2018-12-02 12:30] VITALS: BP 135/85
[2018-12-02] MEDS: GuaiFENesin/Codeine Oral Soln 5 ML UDC PO PRN (12:30)
--- NOTE | 2018-12-02 13:22 | Discharge Summary ---
- NOTES TO OUTPATIENT PROVIDER Notes to Outpatient Provider: f/u with Dr. Painter and Dr. Jenkins within a week. f/u with PCP within one week. Orders not resulted at time of discharge: Pending orders 12/01/18 10:55 Vitamin D-1,25(reference test) Routine Date of Encounter: 12/02/18 Time of Encounter: 13:20 - Discharge Diagnosis (1) Fall Priority: Primary Status: Acute Qualifiers: Encounter type: initial encounter Qualified Code(s): W19.XXXA - Unspecified fall, initial encounter (2) Syncope Priority: Primary Status: Acute Qualifiers: Syncope type: unspecified Qualified Code(s): R55 - Syncope and collapse (3) Weakness Priority: Primary Status: Acute (4) Diabetes Priority: Secondary Status: Chronic Qualifiers: Diabetes mellitus type: type 2 Diabetes mellitus complication status: with other specified complication Qualified Code(s): E11.69 - Type 2 diabetes mellitus with other specified complication; 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 Loza is a 58 year old female with past medical history of small cell lung cancer, coronary artery disease, and hypertension. Patient presented to the ED after waking up on the floor unable to walk. Patient states she is awake during the night and sleeps during the day. Patient ate dinner at night and went to bed about 8 AM on 11/30/18. Patient remembers going to sleep with her CPAP on, although hours later does remember awakening to use the restroom. Patient thinks she went back to bed but afterwards remembers waking up on the floor next to the bed. Patient states upon awakening she felt excruciating pain 10 out of 10 in the lower back hips and legs bilaterally. Patient states legs were numb and tingling bilaterally. Patient states she did have full control of her upper extremities. Patient denies chest pain, shortness of breath, nausea, vomiting, dizziness, blurred vision. Patient does admit to confusion. Close to 4pm patient was able to crawl to the restroom close to her bedroom to call her children patients children heard slurred speech over the phone and decided to call EMS. Patient has recently completed a course of prophylactic radiation to the brain, radiation to the chest and chemotherapy in the beginning of October. Patient remains a smoker of one pack per day for 47 years. Patient was admitted due to concerns of weakness and slurred speech. Lab tests showed a normal TSH, free T4, vitamin B12, and low vitamin D. Vitamin D supplementation started. CT of head has no acute abnormalities. CTA of head showed no high-grade stenosis or focal occlusion involving the intracranial or cervical vasculature, no evidence of aneurysm.CT of cervical spine showed degenerative changes, no cervical fracture or acute traumatic subluxation, and Grade 1 degenerative anterolisthesis C4 on C5. CT of abd/pelvis showed: 1. No CT evidence of acute traumatic abnormality involving the abdomen or pelvis. 2. Bilateral nephrolithiasis without hydronephrosis or ureter calculus evident. 3. Cholecystectomy. 4. Stable benign adenoma right adrenal gland requires no additional evaluation or follow-up. Carotid Doppler LT ICA 40-59% stenosis based on tech data table, RT ICA nonstenotic plaque. ECHO: LVEF 55%. Normal left ventricular diastolic function. Normal LV chamber size, wall thickn ess and function. The right ventricle was not well visualized but appeared grossly normal in function. No evidence of PFO with agitated saline contrast. No evidence of pulmonary hypertension. No obvious significant valvular dysfunction. Bilateral leg weakness resolved after admission. On the discharge today, patient was able to ambulate with the help of a cane. She stated that she has returned to her baseline. PT/OT was consulted, however, patient refused home health care for ECF placement. She is discharged home today, her appointment with Dr. Painter and Dr. Ace will be rescheduled, she will also follow-up with PCP within a week. Discharge discussed with: patient Time spent discussing smoking cessation with patient: more than 10 minutes - Time Spent with Patient Total time spent providing and/or coordinating discharge services: Time spent: Greater than 30 minutes - Discharge Medications Prescriptions: New Vitamin B Complex/Vit C/Vit E [Stresstab] 1 each PO DAILY #30 tablet Cholecalciferol (D-3) [Vitamin D] 2,000 unit PO DAILY #30 tablet Continued Ipratropium/Albuterol Neb [Duoneb] 3 ml IH Q6HR Nitroglycerin [Nitrostat] 0.4 mg SL AD PRN PRN Reason: Chest Pain Ezetimibe [Zetia] 10 mg PO DAILY Budesonide/Formoterol 160/4.5 [Symbicort 160/4.5] 2 puff IH BIDR LORazepam [Ativan] 1 mg PO TID PRN PRN Reason: Anxiety Roflumilast [Daliresp] 500 mcg PO DAILY Sertraline [Zoloft] 200 mg PO DAILY Magic Mouthwash [Magic Mouthwash BLM] 10 ml PO Q2H PRN #960 ml PRN Reason: Pain Albuterol Sulfate [Proair Hfa] 2 puff IH Q6H PRN PRN Reason: Shortness Of Breath Sucralfate [Carafate] 1 gm PO QIDAC PRN #120 tablet PRN Reason: Heartburn Metoclopramide [Reglan] 10 mg PO QIDAC 30 Days #1200 ml Loperamide [Imodium] 2 mg PO Q4HR PRN #30 capsule PRN Reason: Diarrhea Ondansetron [Zofran ODT] 8 mg SL Q8H PRN #30 tab PRN Reason: Nausea GuaiFENesin/Codeine [ROBITUSSIN w/CODEINE] 10 - 20 ml PO Q6HR PRN 8 Days #480 liquid PRN Reason: Cough HYDROcodone/Acet 10/325 mg [[place] 10-325 mg] 1 - 2 tab PO Q8HR PRN PRN Reason: Pain Subcutaneous Insulin Pump [T:Slim] 1 each MC AD Bupropion HCl [Wellbutrin Xl] 300 mg PO DAILY Metoprolol [Lopressor] 25 mg PO BID Spironolactone [Aldactone] 25 mg PO DAILY Home Medications: Budesonide/Formoterol 160/4.5 [Symbicort 160/4.5] 2 puff IH BIDR 02/11/18 [History] Ezetimibe [Zetia] 10 mg PO DAILY 02/11/18 [History] Ipratropium/Albuterol Neb [Duoneb] 3 ml IH Q6HR 02/11/18 [History] LORazepam [Ativan] 1 mg PO TID PRN 02/11/18 [History] Nitroglycerin [Nitrostat] 0.4 mg SL AD PRN 02/11/18 [History] Roflumilast [Daliresp] 500 mcg PO DAILY 02/11/18 [History] Sertraline [Zoloft] 200 mg PO DAILY 05/14/18 [History] Magic Mouthwash [Magic Mouthwash BLM] 10 ml PO Q2H PRN #960 ml 06/03/18 [Rx] Albuterol Sulfate [Proair Hfa] 2 puff IH Q6H PRN 06/16/18 [History] Sucralfate [Carafate] 1 gm PO QIDAC PRN #120 tablet 07/02/18 [Rx] Metoclopramide [Reglan] 10 mg PO QIDAC 30 Days #1200 ml 07/14/18 [Rx] Loperamide [Imodium] 2 mg PO Q4HR PRN #30 capsule 08/11/18 [Rx] Ondansetron [Zofran ODT] 8 mg SL Q8H PRN #30 tab 09/25/18 [Rx] GuaiFENesin/Codeine [ROBITUSSIN w/CODEINE] 10 - 20 ml PO Q6HR PRN 8 Days #480 liquid 10/06/18 [Rx] Bupropion HCl [Wellbutrin Xl] 300 mg PO DAILY 12/01/18 [History] HYDROcodone/Acet 10/325 mg [[place] 10-325 mg] 1 - 2 tab PO Q8HR PRN 12/01/18 [History] Metoprolol [Lopressor] 25 mg PO BID 12/01/18 [History] Spironolactone [Aldactone] 25 mg PO DAILY 12/01/18 [History] Subcutaneous Insulin Pump [T:Slim] 1 each MC AD 12/01/18 [History] Cholecalciferol (D-3) [Vitamin D] 2,000 unit PO DAILY #30 tablet 12/02/18 [Rx] Vitamin B Complex/Vit C/Vit E [Stresstab] 1 each PO DAILY #30 tablet 12/02/18 [Rx] Allergies/Adverse Reactions: Allergy/AdvReac Type Severity Reaction Status Date / Time eszopiclone [From Lunesta] Allergy Anxiety Verified 08/11/18 09:27 gabapentin [From Neurontin] Allergy Vomiting Verified 08/11/18 09:27 meperidine [From Demerol] Allergy Itching Verified 08/11/18 09:27 metformin Allergy Diarrhea Verified 08/11/18 09:27 Date of admission: 11/30/18 21:41 Primary care physician: Nithin Lopez DO Consults: 11/30/18 22:35 Consult to Occupational Therapy [CONS] Routine Comment: Evaluate, develop and implement POC Reason for Consult: weakness Does patient have active BEDREST order?: No Is patient medically & hemodynamically stable?: Yes Patient assessed for mobility or mobilized this visit?: No Consult to Physical Therapy [CONS] Routine Comment: Evaluate, develop and implement POC Reason for Consult: weakness Does patient have active BEDREST order?: No Is patient medically & hemodynamically stable?: Yes Patient assessed for mobility or mobilized this visit?: No 11/30/18 22:36 Consult to Costume Designer [CONS] Routine Reason for SW Consult: lives alone, evaluate for independent living Anticipated date of discharge: 12/02/18 - Constitutional Vitals: Temp Pulse Resp BP Pulse Ox 98.5 F 77 16 135/85 94 12/02/18 12:13 12/02/18 12:13 12/02/18 12:13 12/02/18 12:13 12/02/18 12:13 General appearance: Present: A&O X 3 Exam: Gen: alert/oriented, no acute distress. no dysarthria noted, clear speech. Head: atraumatic, normocephalic. non tender to palpation ENT: EOMI, JESÚS, no oropharyngeal erythema, mucous membranes moist, Neck: No thyromegaly appreciated. Neck supple no cervical lymphadenopathy. Resp: CTAB, no wheezing, mild rhonchi in L lower lung bases, or rhales. CV: RRR, Normal S1 and S2. No murmur, gallops, or rubs. GI/Abdominal exam: obese, bowel sounds x4, soft, non-tender, non- distended; no hepatosplenomegaly Skin: intact; no rashes, lesions, or bruising. Ext: No cyanosis or edema. pulses +2/4 bilaterally UE and LE. Neuro: strength 5/5 in RUE, 5/5 in LUE, 5/5 in LE b/l; sensation intact UE and LE b/l; +2/4 DTR UE and LE b/l; normal finger to nose test bilaterally, cooperative with exam. - Patient Status Disposition: Home, Self-Care Condition: Fair Functional capacity at discharge: uses cane/walker Overall status at discharge: patient is progressing back to baseline - Discharge Instructions Follow Up With: Nithin Lopez DO [Primary Care Provider] - 12/08/18 1:30 pm ( ) - Diet and Activity Activity: increase activity as tolerated Diet: diabetic diet, low fat, low cholesterol, low salt diet
--- NOTE | 2018-12-04 11:21 | Electrocardiograph Report ---
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
== END 2018-12-02 14:43 | disposition home or self-care (01) ==
LOC: 3BNU 17:50 → EMEROOARM 17:50 → 3BNU 22:32
PROVIDERS: ADMIT Internal Medicine; ATTEND Internal Medicine

== ENCOUNTER 2018-12-06 12:51 | Inpatient (IN) ==
--- NOTE | 2018-12-06 13:09 | Emergency Department Note ---
Disposition Clinical Impression: TIA (transient ischemic attack) Disposition: Admitted As Inpatient Condition: Good Time of Disposition: 18:07 General Adult HPI - General Chief complaint: ED Fall Stated complaint: Fall Time Seen by Provider: 12/06/18 13:01 Source: patient, EMS Nursing Notes Reviewed: Yes Vital Signs Reviewed: Yes - History of Present Illness Pain Scale: 0 - Related Data Home Medications Medication Instructions Recorded Confirmed Budesonide/Formoterol 160/4.5 2 puff IH BIDR 02/11/18 12/06/18 [Symbicort 160/4.5] Ezetimibe [Zetia] 10 mg PO DAILY 02/11/18 12/06/18 Ipratropium/Albuterol Neb [Duoneb] 3 ml IH Q6HR 02/11/18 12/06/18 LORazepam [Ativan] 1 mg PO TID PRN 02/11/18 12/06/18 Nitroglycerin [Nitrostat] 0.4 mg SL AD PRN 02/11/18 12/06/18 Roflumilast [Daliresp] 500 mcg PO DAILY 02/11/18 12/06/18 Sertraline [Zoloft] 200 mg PO DAILY 05/14/18 12/06/18 Albuterol Sulfate [Proair Hfa] 2 puff IH Q6H PRN 06/16/18 12/06/18 Bupropion HCl [Wellbutrin Xl] 300 mg PO DAILY 12/01/18 12/06/18 HYDROcodone/Acet 10/325 mg [[place] 1 - 2 tab PO Q8HR PRN 12/01/18 12/06/18 10-325 mg] Metoprolol [Lopressor] 25 mg PO BID 12/01/18 12/06/18 Spironolactone [Aldactone] 25 mg PO DAILY 12/01/18 12/06/18 Subcutaneous Insulin Pump [T:Slim] 1 each MC AD 12/01/18 12/06/18 Previous Rx's Medication Instructions Recorded Magic Mouthwash [Magic Mouthwash 10 ml PO Q2H PRN #960 ml 06/03/18 BLM] Sucralfate [Carafate] 1 gm PO QIDAC PRN #120 tablet 07/02/18 Metoclopramide [Reglan] 10 mg PO QIDAC 30 Days #1200 ml 07/14/18 Loperamide [Imodium] 2 mg PO Q4HR PRN #30 capsule 08/11/18 Ondansetron [Zofran ODT] 8 mg SL Q8H PRN #30 tab 09/25/18 GuaiFENesin/Codeine [ROBITUSSIN 10 - 20 ml PO Q6HR PRN 8 Days #480 10/06/18 w/CODEINE] liquid Cholecalciferol (D-3) [Vitamin D] 2,000 unit PO DAILY #30 tablet 12/02/18 Vitamin B Complex/Vit C/Vit E 1 each PO DAILY #30 tablet 12/02/18 [Stresstab] Allergies Allergy/AdvReac Type Severity Reaction Status Date / Time eszopiclone [From Lunesta] Allergy Anxiety Verified 08/11/18 09:27 gabapentin [From Neurontin] Allergy Vomiting Verified 08/11/18 09:27 meperidine [From Demerol] Allergy Itching Verified 08/11/18 09:27 metformin Allergy Diarrhea Verified 08/11/18 09:27 Past Medical History - Past Medical History Medical history: Reports: arthritis, cancer, COPD, diabetes, fibromyalgia, hyperlipidemia, hypertension Surgical history: Reports: cholecystectomy, hysterectomy Psychiatric history: Reports: anxiety, depression, panic disorder - Social History Smoking Status: Current every day smoker Smokeless Tobacco Status: No Alcohol use: Reports: none Drug use: Reports: none Physical Exam - General General appearance: alert Course Vital Signs Temperature 99.0 F 12/06/18 12:53 Pulse Rate 104 12/06/18 12:53 Respiratory Rate 22 12/06/18 12:53 Blood Pressure 175/91 12/06/18 12:53 O2 Sat by Pulse Oximetry 98 12/06/18 12:53 Temperature 98.5 F 12/06/18 17:07 Pulse Rate 92 12/06/18 17:07 Respiratory Rate 16 12/06/18 17:07 Blood Pressure 152/78 12/06/18 17:07 O2 Sat by Pulse Oximetry 94 12/06/18 17:07 Oxygen Delivery Oxygen Delivery Room Air Medical Decision Making - MDM Narrative Medical decision making narrative: Head CT 12/06/18 13:01 IMPRESSION: 1. No acute intracranial abnormality. D/ / Manolo Mejia MD / Manolo Mejia MD Interpreting Provider: Manolo Mejia MD Hand X-Ray 12/06/18 13:11 IMPRESSION: No evidence of acute fracture or dislocation. D/ / Bobby Lemus / Bobby Lemus Interpreting Provider: Bobby Lemus 1506 hrs.: Were going to update the patient on the labs and an x-rays. Benjamín anderson best disposition for her. - Lab Data Result diagrams: 12/06/18 13:39 12/06/18 13:39 Lab Results 12/06/18 12/06/18 12/06/18 Range/Units 13:39 13:39 13:39 WBC 12.6 H D (4.3-11.1) K/mcL RBC 5.23 H (3.82-4.97) M/mcL Hgb 15.2 D (11.5-15.4) g/dL Hct 45.8 H (35.3-44.9) % MCV 87.6 (83.0-100.0) fL MCH 29.1 (28.0-33.3) pg MCHC 33.2 (31.6-35.5) g/dL RDW 14.0 (11.5-14.5) % Plt Count 198 (140-400) K/mcL MPV 9.0 L (9.4-12.4) fL PT 11.8 (9.4-12.1) Seconds INR 1.0 APTT 33.9 (26.0-36.0) Seconds Sodium 139 (136-145) mEq/L Potassium 3.5 (3.5-5.1) mEq/L Chloride 102 (98-107) mEq/L Carbon Dioxide 23 (23-29) mEq/L BUN 17 (8-23) mg/dL Creatinine 0.84 (0.60-1.20) mg/dL Est GFR ( Amer) > 60 (> 60) Est GFR (Non-Af Amer) > 60 (> 60) BUN/Creatinine Ratio 20 (6-26) Glucose 53 L (70-105) mg/dL Calculated Osmolality 287 (280-300) Calcium 9.9 (8.6-10.3) mg/dL Troponin I < 0.03 (< 0.04) ng/mL Attestation Statement - Attestation Attestation: This documentation is done with the assistance of Dragon dictation. Despite efforts made to ensure accuracy, there may be inaccuracies in tier lift truck operator or spelling and typographical errors. I examined this patient and my medical decision-making was reviewed with the Resident Physician. I agree with the documented findings, disposition and treatment plan as described except to the extent set forth below. Patient was seen and evaluated by Dr. Montenegro, I agree with their evaluation and management plan, I supervised care the patient's stay. Patient seen and evaluated on ar gaurangl with EMS and Dr. Montenegro. She comes in today after a fall at home. She says she gets very weak and had the same thing happened to her about a week ago was seen here for TIAs or syncope. She states that she feels that at times her brain does not connect to her feet. But she says she did not pass out did not have a syncopal episode. Had some slurring of speech at home but she said that has now resolved. She does have small cell lung cancer. We will order a CT of her head x-ray her left hand also she has had pain there. We will workup and most likely admission. I reviewed the residents documentation and agree with the residents assessment and plan of care. I have personally had face to face time with the patient. (Brief History, Brief Exam, and MDM) I personally supervised and was present for the edmondson/critical portions of the following procedures completed by the resident: EKG was interpreted by the resident under my supervision, I agree with their interpretation.
--- NOTE | 2018-12-06 13:31 | Emergency Department Note ---
Disposition Clinical Impression: TIA (transient ischemic attack) Disposition: Admitted As Inpatient Condition: Good Referrals: Nithin Lopez DO [Primary Care Provider] - Forms: ED Satisfaction Letter Time of Disposition: 16:07 General Adult HPI - General Chief complaint: ED Fall Time Seen by Provider: 12/06/18 13:01 Source: patient, EMS Mode of arrival: EMS Limitations: no limitations Nursing Notes Reviewed: Yes Vital Signs Reviewed: Yes - History of Present Illness HPI Narrative: Patient is a 58-year-old female that presents to the emergency department with reports of a fall. Patient does state that she hit her head on the floor but did not lose consciousness. Patient states that she did not hit anything other than the floor. Patient states that she did lay on the floor for a while due to having a difficult time getting up. Patient states that she was recently seen for TIA-like symptoms. Patient states that at times she feels like her brain is not communicating well with the rest of her body. Patient states that her left hand also hurts after the fall. Patient denies any chest pain or shortness of breath. Patient states that she had a workup for her TIAs recently and said that they were unable to determine the cause of her symptoms. Pain Scale: 0 - Related Data Home Medications Medication Instructions Recorded Confirmed Budesonide/Formoterol 160/4.5 2 puff IH BIDR 02/11/18 12/01/18 [Symbicort 160/4.5] Ezetimibe [Zetia] 10 mg PO DAILY 02/11/18 12/01/18 Ipratropium/Albuterol Neb [Duoneb] 3 ml IH Q6HR 02/11/18 12/01/18 LORazepam [Ativan] 1 mg PO TID PRN 02/11/18 12/01/18 Nitroglycerin [Nitrostat] 0.4 mg SL AD PRN 02/11/18 12/01/18 Roflumilast [Daliresp] 500 mcg PO DAILY 02/11/18 12/01/18 Sertraline [Zoloft] 200 mg PO DAILY 05/14/18 12/01/18 Albuterol Sulfate [Proair Hfa] 2 puff IH Q6H PRN 06/16/18 12/01/18 Bupropion HCl [Wellbutrin Xl] 300 mg PO DAILY 12/01/18 12/01/18 HYDROcodone/Acet 10/325 mg [[place] 1 - 2 tab PO Q8HR PRN 12/01/18 12/01/18 10-325 mg] Metoprolol [Lopressor] 25 mg PO BID 12/01/18 12/01/18 Spironolactone [Aldactone] 25 mg PO DAILY 12/01/18 12/01/18 Subcutaneous Insulin Pump [T:Slim] 1 each MC AD 12/01/18 12/01/18 Previous Rx's Medication Instructions Recorded Magic Mouthwash [Magic Mouthwash 10 ml PO Q2H PRN #960 ml 06/03/18 BLM] Sucralfate [Carafate] 1 gm PO QIDAC PRN #120 tablet 07/02/18 Metoclopramide [Reglan] 10 mg PO QIDAC 30 Days #1200 ml 07/14/18 Loperamide [Imodium] 2 mg PO Q4HR PRN #30 capsule 08/11/18 Ondansetron [Zofran ODT] 8 mg SL Q8H PRN #30 tab 09/25/18 GuaiFENesin/Codeine [ROBITUSSIN 10 - 20 ml PO Q6HR PRN 8 Days #480 10/06/18 w/CODEINE] liquid Cholecalciferol (D-3) [Vitamin D] 2,000 unit PO DAILY #30 tablet 12/02/18 Vitamin B Complex/Vit C/Vit E 1 each PO DAILY #30 tablet 12/02/18 [Stresstab] Allergies Allergy/AdvReac Type Severity Reaction Status Date / Time eszopiclone [From Lunesta] Allergy Anxiety Verified 08/11/18 09:27 gabapentin [From Neurontin] Allergy Vomiting Verified 08/11/18 09:27 meperidine [From Demerol] Allergy Itching Verified 08/11/18 09:27 metformin Allergy Diarrhea Verified 08/11/18 09:27 All systems ED: reviewed and negative except as stated. Constitutional: Denies: fever Cardiovascular: Denies: chest pain Respiratory: Denies: dyspnea Gastrointestinal: Denies: abdominal pain Musculoskeletal: Reports: other (Left hand pain) Neurological: Denies: weakness, numbness, paresthesias Past Medical History - Past Medical History Medical history: Reports: arthritis, cancer, COPD, diabetes, fibromyalgia, hyperlipidemia, hypertension Surgical history: Reports: cholecystectomy, hysterectomy Psychiatric history: Reports: anxiety, depression, panic disorder - Social History Smoking Status: Current every day smoker Smokeless Tobacco Status: No Alcohol use: Reports: none Drug use: Reports: none Physical Exam - General Limitations: no limitations General appearance: alert, in no apparent distress - Head Head exam: atraumatic, normocephalic - Eye Eye exam: Present: normal appearance, EOMI - Neck Neck exam: Present: normal inspection, full ROM, trachea midline - Respiratory Respiratory exam: Present: normal lung sounds bilaterally. Absent: respiratory distress, wheezes - Cardiovascular Cardiovascular exam: Present: regular rate, normal rhythm, normal heart sounds, +S1, +S2 - Abdominal Exam Abdominal exam: Present: soft, Non-Tender, normal bowel sounds - Neurological Exam Neurological exam: Present: alert, oriented X3 - Expanded Neurological Exam Speech: Present: fluid speech Cranial nerves: EOM function (II, III, IV, ): Normal, facial sensation (V): Normal, facial palsy (VII): Normal, gag reflex (IX): Normal, spinal accessory function (XI): Normal, tongue deviation (XII): Normal Cerebellar function: finger to nose: Normal, heel to mar: Normal Motor strength - LUE: 5/5 Motor strength - RUE: 5/5 Motor strength - LLE: 5/5 Motor strength - RLE: 5/5 Upper motor neuron exam: pronator drift: Absent bilaterally Sensory exam upper extremity: light touch: Normal Sensory exam lower extremity: light touch: Normal Coma Scale Eye Opening: Spontaneous Coma Scale Motor Response: Obeys Commands Coma Scale Verbal Response: Oriented Coma Scale Total: 15 - Psychiatric Psychiatric exam: Present: normal affect, normal mood - Skin Skin exam: Present: warm, dry, intact Course Vital Signs Temperature 99.0 F 12/06/18 12:53 Pulse Rate 104 12/06/18 12:53 Respiratory Rate 22 12/06/18 12:53 Blood Pressure 175/91 12/06/18 12:53 O2 Sat by Pulse Oximetry 98 12/06/18 12:53 Temperature 99.0 F 12/06/18 12:53 Pulse Rate 103 12/06/18 15:24 Respiratory Rate 16 12/06/18 15:24 Blood Pressure 146/65 12/06/18 15:24 O2 Sat by Pulse Oximetry 95 12/06/18 15:24 Oxygen Delivery Oxygen Delivery Room Air Medical Decision Making - MDM Narrative Medical decision making narrative: Due the patient's into the emergency department with reports of a fall we will obtain basic laboratory testing and a CT scan of the patient's head. Patient's laboratory testing is relatively unremarkable other than a mild leukocytosis. Head CT was negative. Due to the patient having a recent fall and recent TIA- like symptoms including slurred speech today to a support for her to be a admitted to the hospital for further evaluation and management of her symptoms. Patient and family are in agreement with this plan. Patient's family member at bedside states that they are uncomfortable with her being discharged home due to her living alone and having concerns that she could potentially fall being by herself. Called spoke the admitting hospitalist Dr. Hickman that he is except the patient their service. Patient be admitted to the hospital this time for further evaluation and management. - Medical Records Medical records reviewed: Yes I reviewed the patient's medical records. - Lab Data Lab results reviewed: Yes I reviewed the patient's lab results. Result diagrams: 12/06/18 13:39 12/06/18 13:39 Lab Results 12/06/18 12/06/18 12/06/18 Range/Units 13:39 13:39 13:39 WBC 12.6 H D (4.3-11.1) K/mcL RBC 5.23 H (3.82-4.97) M/mcL Hgb 15.2 D (11.5-15.4) g/dL Hct 45.8 H (35.3-44.9) % MCV 87.6 (83.0-100.0) fL MCH 29.1 (28.0-33.3) pg MCHC 33.2 (31.6-35.5) g/dL RDW 14.0 (11.5-14.5) % Plt Count 198 (140-400) K/mcL MPV 9.0 L (9.4-12.4) fL PT 11.8 (9.4-12.1) Seconds INR 1.0 APTT 33.9 (26.0-36.0) Seconds Sodium 139 (136-145) mEq/L Potassium 3.5 (3.5-5.1) mEq/L Chloride 102 (98-107) mEq/L Carbon Dioxide 23 (23-29) mEq/L BUN 17 (8-23) mg/dL Creatinine 0.84 (0.60-1.20) mg/dL Est GFR ( Amer) > 60 (> 60) Est GFR (Non-Af Amer) > 60 (> 60) BUN/Creatinine Ratio 20 (6-26) Glucose 53 L (70-105) mg/dL Calculated Osmolality 287 (280-300) Calcium 9.9 (8.6-10.3) mg/dL Troponin I < 0.03 (< 0.04) ng/mL - Radiology Data Radiology results reviewed: Yes I reviewed the patient's radiology results. Head CT 12/06/18 13:01 IMPRESSION: 1. No acute intracranial abnormality. D/ / Manolo Mejia MD / Manolo Mejia MD Interpreting Provider: Manolo Mejia MD Hand X-Ray 12/06/18 13:11 IMPRESSION: No evidence of acute fracture or dislocation. D/ / Bobby Lemus / Bobby Lemus Interpreting Provider: Bobby Lemus - EKG Data EKG #1 EKG attestation: Yes I reviewed and interpreted this EKG. EKG results narrative: Patient's EKG shows a sinus tachycardia at a rate of 103 bpm, AL interval of 142, curious duration 90, QTc of 468. There is no evidence of STEMI on EKG.
[2018-12-06 13:51] LABS: Hematocrit 45.8 % (35.3-44.9); Mean Corpuscular HGB Conc 33.2 g/dL (31.6-35.5); Mean Corpuscular Hemoglobin 29.1 pg (28.0-33.3); Mean Corpuscular Volume 87.6 fL (83.0-100.0); Platelet Count 198 K/mcL (140-400); Red Blood Count 5.23 M/mcL (3.82-4.97)
[2018-12-06] MEDS ORDERED: Ibuprofen 600 MG TABLET PO ONE (13:51)
[2018-12-06] MEDS ORDERED: Ondansetron 4 MG/2 ML VIAL IVP ONE (13:51)
[2018-12-06 13:52] LABS: Hemoglobin 15.2 g/dL (11.5-15.4); White Blood Count 12.6 K/mcL (4.3-11.1)
[2018-12-06 14:00] LABS: Prothrombin Time 11.8 Seconds (9.4-12.1)
[2018-12-06 14:02] LABS: Activated Partial Thrombo Time 33.9 Seconds (26.0-36.0)
[2018-12-06 14:10] LABS: BUN/Creatinine Ratio 20 (6-26); Blood Urea Nitrogen 17 mg/dL (8-23); Calcium 9.9 mg/dL (8.6-10.3); Carbon Dioxide 23 mEq/L (23-29); Chloride 102 mEq/L (98-107); Glucose 53 mg/dL (70-105); Osmolality,Calculated 287 (280-300); Potassium 3.5 mEq/L (3.5-5.1); Sodium 139 mEq/L (136-145); Troponin I < 0.03 ng/mL (< 0.04); eGFR For African Americans > 60 (> 60); eGFR For Non-African Americans > 60 (> 60)
[2018-12-06] MEDS ORDERED: Dextrose Gel 15 GM/37.5 ML TUBE PO PRN ×4 (15:58→19:15)
[2018-12-06] MEDS ORDERED: *HR* Dextrose 50 % in Water (Syg) 50 ML SYRINGE IVP PRN ×2 (15:58→19:15)
[2018-12-06] MEDS ORDERED: D5% in Water 1,000 ML IVC PRN ×2 (15:58→19:15)
--- NOTE | 2018-12-06 17:03 | Internal Med History&Physical ---
<Monique Le - Last Filed: 12/06/18 17:42> Date of Encounter: 12/06/18 Time of Encounter: 17:00 Internal Medicine - H&P: HPI History of present illness: Ms. Loza is a 58 year old female Internal Medicine - H&P: Meds Budesonide/Formoterol 160/4.5 [Symbicort 160/4.5] 2 puff IH BIDR 02/11/18 [History] Ezetimibe [Zetia] 10 mg PO DAILY 02/11/18 [History] Ipratropium/Albuterol Neb [Duoneb] 3 ml IH Q6HR 02/11/18 [History] LORazepam [Ativan] 1 mg PO TID PRN 02/11/18 [History] Nitroglycerin [Nitrostat] 0.4 mg SL AD PRN 02/11/18 [History] Roflumilast [Daliresp] 500 mcg PO DAILY 02/11/18 [History] Sertraline [Zoloft] 200 mg PO DAILY 05/14/18 [History] Magic Mouthwash [Magic Mouthwash BLM] 10 ml PO Q2H PRN #960 ml 06/03/18 [Rx] Albuterol Sulfate [Proair Hfa] 2 puff IH Q6H PRN 06/16/18 [History] Sucralfate [Carafate] 1 gm PO QIDAC PRN #120 tablet 07/02/18 [Rx] Metoclopramide [Reglan] 10 mg PO QIDAC 30 Days #1200 ml 07/14/18 [Rx] Loperamide [Imodium] 2 mg PO Q4HR PRN #30 capsule 08/11/18 [Rx] Ondansetron [Zofran ODT] 8 mg SL Q8H PRN #30 tab 09/25/18 [Rx] GuaiFENesin/Codeine [ROBITUSSIN w/CODEINE] 10 - 20 ml PO Q6HR PRN 8 Days #480 liquid 10/06/18 [Rx] Bupropion HCl [Wellbutrin Xl] 300 mg PO DAILY 12/01/18 [History] HYDROcodone/Acet 10/325 mg [[place] 10-325 mg] 1 - 2 tab PO Q8HR PRN 12/01/18 [History] Metoprolol [Lopressor] 25 mg PO BID 12/01/18 [History] Spironolactone [Aldactone] 25 mg PO DAILY 12/01/18 [History] Subcutaneous Insulin Pump [T:Slim] 1 each MC AD 12/01/18 [History] Cholecalciferol (D-3) [Vitamin D] 2,000 unit PO DAILY #30 tablet 12/02/18 [Rx] Vitamin B Complex/Vit C/Vit E [Stresstab] 1 each PO DAILY #30 tablet 12/02/18 [Rx] Allergy/AdvReac Type Severity Reaction Status Date / Time eszopiclone [From Lunesta] Allergy Anxiety Verified 08/11/18 09:27 gabapentin [From Neurontin] Allergy Vomiting Verified 08/11/18 09:27 meperidine [From Demerol] Allergy Itching Verified 08/11/18 09:27 metformin Allergy Diarrhea Verified 08/11/18 09:27 All Systems PM: A 10-system review of systems was performed and is negative for pertinent findings except as documented above in the HPI. - Constitutional Vitals: Temp Pulse Resp BP Pulse Ox 98.5 F 92 16 152/78 94 12/06/18 17:07 12/06/18 17:07 12/06/18 17:07 12/06/18 17:07 12/06/18 17:07 Internal Med - H&P Results - Labs CBC & Chem 7: 12/06/18 13:39 12/06/18 13:39 Labs: Short CBC 12/06/18 Range/Units 13:39 WBC 12.6 H D (4.3-11.1) K/mcL Hgb 15.2 D (11.5-15.4) g/dL Hct 45.8 H (35.3-44.9) % Plt Count 198 (140-400) K/mcL BMP 12/06/18 13:39 Sodium 139 Potassium 3.5 Chloride 102 Carbon Dioxide 23 BUN 17 Creatinine 0.84 Glucose 53 L Calcium 9.9 Cardiac Enzymes 12/06/18 Range/Units 13:39 Troponin I < 0.03 (< 0.04) ng/mL - Impressions ITS Impressions Head CT 12/06/18 13:01 IMPRESSION: 1. No acute intracranial abnormality. D/ / Manolo Mejia MD / Manolo Mejia MD Interpreting Provider: Manolo Mejia MD Hand X-Ray 12/06/18 13:11 IMPRESSION: No evidence of acute fracture or dislocation. D/ / Bobby Lemus / Bobby Lemus Interpreting Provider: Bobby Lemus - Time Spent With Patient Total time spent is greater than 50% in coordination of care (as documented) at patient's floor/unit and/or counseling patient: - Attending Attestation I saw evaluated and examined this patient and reviewed past medical, family, social histories and objective data including labs and my medical decision- making was reviewed with the Resident Physician, Poppy Hinkle. I agree with the documented findings, disposition and treatment plan as described except to any changes set forth below. We independently had [id number] contact with the patient. Patient with a history of small cell lung cancer status post chemotherapy and radiation along with whole brain radiation prophylactically presented to the ER with complaints of generalized weakness, falls and slurred speech. She apparently felt weak in her legs and fell down and hit her head without any loss of consciousness. She had difficulty getting up. She was brought to the ER and had workup done in that included CT scan of the head which did not show any active bleed or stroke. Patient had been hospitalized with similar complaints last week and discharged after TIA workup was mostly negative. MRI of the brain was not done at that time due to patient being claustrophobic. She had reported weakness in her lower extremities on presentation then. She complained of similar weakness here today prior to her falling. She is also been having dizziness, nausea and vomiting. Her nausea and vomiting has been ongoing ever since she received chemotherapy and radiation. She completed chemotherapy and radiation in October. She follows with [facility]. At the end of last hospitalization, she was recommended placement to skilled rehabilitation or home health but she declined. Presently, patient does not appear to have any focal deficits. She is back to her baseline clinically. Answering questions appropriately. No focal weakness on exam. She does have some abdominal discomfort. Labs show hypoglycemia. Patient denies having symptoms of weakness or dizziness during her prior episodes of hypoglycemia. Family present at bedside stated that patient is a very brittle diabetic with blood sugars going up to 300s and back down to normal and even hypoglycemic quickly. She was also found to be hypoglycemic on arrival to the ER on her last hospital visit. She does not wear an insulin pump and takes sliding scale insulin as needed. Generalized weakness, tremors: Most likely related to hypoglycemia. Will monitor sugars closely. Diabetic diet. Physical therapy evaluation. DM2 with hypoglycemia: As above. Sliding scale insulin when blood sugars improve. Small cell lung cancer: Status post whole brain irradiation and chemotherapy/radiation. Family concerned if her symptoms are related to adverse reactions to her radiation treatment. Will consult oncology to discuss this further. Possible recent TIA: Although her symptoms of weakness in both lower extremities could not be due to a TIA, she did describe slurred speech/speech abnormalities at home. MRI has been recommended and patient willing to undergo this under anesthesia. Will receive this can be arranged on Saturday. We will send urine for analysis as she does have leukocytosis. She may have underlying UTI. CT scan of the abdomen and pelvis done during last hospitalization showed bilateral nephrolithiasis without hydronephrosis. Nausea and vomiting: We will treat symptomatically. <Poppy Hinkle I - Last Filed: 12/06/18 19:14> Date of Encounter: 12/06/18 Internal Medicine - H&P: HPI History of present illness: Ms. Loza is a 58 year old female with a history of small cell lung cancer status post chemotherapy and radiation along with whole brain radiation prophylactically , COPD, HT ,DM CMP presented to the ER with complaints of generalized weakness, falls and slurred speech. She apparently felt weak in her legs and fell down and hit her head and left hand without any loss of consciousness. Her daughter said she also had everton biting and urine and bowel incontinence She had difficulty getting up. she denies any chest pain or palpitation before the attack , no fever or chills or recent illness , she state she has poor oral intake nausea and diarrhea but that has been for months due to chemotherapy , she has been coughing too but this is a chronic thing for her due to prolong history of COPD and smoking . At ER CT scan of the head which did not show any active bleed or stroke. CXR was negative for any acute cardiopulmonary abnormalities , her WBC was 12 , and her vitals were normal . She was also found to be hypoglycemic on arrival to the ER and blood glucose was 53 also She was found to be hypoglycemic on arrival to the ER When she had been hospitalized with similar complaints last week She had reported weakness in her lower extremities on presentation then and discharged after TIA workup was mostly negative. MRI of the brain was not done at that time due to patient being claustrophobic. . she underwent at that time CT head , CT spine , Ct abdomen and pelvis , carotid us , ECHO and all were negative for any acute abnormalities Past Med Surg Social Fam HX - Past Medical History Medical history: arthritis, cancer, COPD, diabetes, fibromyalgia, hyperlipidemia, hypertension Additional medical history: lung cancer-last tx November 07 chemo and radiation Psychiatric history: anxiety, depression, panic disorder - Past Surgical History Surgical History: cholecystectomy, hysterectomy Additional surgical history: TONSILS,vocal polyps, - Social History Smoking Status: Current every day smoker Smokeless Tobacco Status: No Alcohol use: none Drug use: none - Family History Mother Living Status: Father Living Status: All Systems PM: A 10-system review of systems was performed and is negative for pertinent findings except as documented above in the HPI. - Constitutional Vitals: Temp Pulse Resp BP Pulse Ox 99.0 F 103 18 162/96 95 12/06/18 12:53 12/06/18 15:24 12/06/18 16:41 12/06/18 16:41 12/06/18 15:24 Exam: Gen: alert/oriented, no acute distress. no dysarthria noted, clear speech. Head: atraumatic, normocephalic. non tender to palpation ENT: EOMI, JESÚS, no oropharyngeal erythema, mucous membranes moist, Neck: No thyromegaly appreciated. Neck supple no cervical lymphadenopathy. Resp: CTAB, no wheezing, mild rhonchi in L lower lung bases, or rhales. CV: RRR, Normal S1 and S2. No murmur, gallops, or rubs. GI/Abdominal exam: obese, bowel sounds x4, soft, non-tender, non- distended; no hepatosplenomegaly Skin: intact; no rashes, lesions, or bruising. Ext: No cyanosis or edema. pulses + bilaterally UE and LE. Neuro: intact strength in bilateral upper and lower extrimities , no decr aese in sensations , able to walk to bathroom . no slurry speech or focal deficit Internal Med - H&P Results - Labs CBC & Chem 7: 12/06/18 13:39 12/06/18 13:39 Labs: Short CBC 12/06/18 Range/Units 13:39 WBC 12.6 H D (4.3-11.1) K/mcL Hgb 15.2 D (11.5-15.4) g/dL Hct 45.8 H (35.3-44.9) % Plt Count 198 (140-400) K/mcL BMP 12/06/18 13:39 Sodium 139 Potassium 3.5 Chloride 102 Carbon Dioxide 23 BUN 17 Creatinine 0.84 Glucose 53 L Calcium 9.9 Cardiac Enzymes 12/06/18 Range/Units 13:39 Troponin I < 0.03 (< 0.04) ng/mL - Impressions ITS Impressions Head CT 12/06/18 13:01 IMPRESSION: 1. No acute intracranial abnormality. D/ / Manolo Mejia MD / Manolo Mejia MD Interpreting Provider: Manolo Mejia MD Hand X-Ray 12/06/18 13:11 IMPRESSION: No evidence of acute fracture or dislocation. D/ / Bobby Lemus / Bobby Lemus Interpreting Provider: Bobby Lemus - Assessment and Plan (1) Fall Current Visit: No Status: Acute Assessment and plan: cause unknown could be due to peripheral Neuropathy vs hypoglycemia vs seizure vs TIA head CT negative will onsider MRI saturday IVF 75 ml/hr continue monitor Blood sugar PT/OT evaluation Qualifiers: Encounter type: initial encounter Qualified Code(s): W19.XXXA - Unspecified fall, initial encounter (2) Hypoglycemia Current Visit: No Status: Acute Assessment and plan: daibetic diet slow SSI continue monitoring (3) Diabetes Current Visit: No Status: Chronic Assessment and plan: daibetic diet slow SSI continue monitoring Qualifiers: Diabetes mellitus type: type 2 Diabetes mellitus complication status: with other specified complication Qualified Code(s): E11.69 - Type 2 diabetes mellitus with other specified complication; Z79.4 - retirement (current) use of insulin (4) Lung cancer Current Visit: No Status: Acute Assessment and plan: SCLC status post chemo and radiation in October Follow-up with Dr. Oakes and Dr. Ace as outpatient. Qualifiers: Laterality: unspecified laterality Lung location: unspecified part of lung Qualified Code(s): C34.90 - Malignant neoplasm of unspecified part of unspecified bronchus or lung - Time Spent With Patient Total time spent is greater than 50% in coordination of care (as documented) at patient's floor/unit and/or counseling patient:
[2018-12-06] MEDS ORDERED: Naloxone 0.4 MG/ML INJ IVP PRN (17:27)
[2018-12-06] MEDS ORDERED: Sucralfate 1 GM TABLET PO PRN (19:01)
[2018-12-06] MEDS ORDERED: NON-FORMULARY MEDICATION 1 EACH EACH (Ondansetron [Zofran Odt] 8 MG) SL PRN (19:01)
[2018-12-06] MEDS ORDERED: Nitroglycerin 0.4 MG TAB.SUBL SL PRN (19:01)
[2018-12-06] MEDS ORDERED: Magic Mouthwash 10 ML UD Cup PO PRN (19:01)
[2018-12-06] MEDS: (Roflumilast [Daliresp] 500 MCG) PO SCH (20:09)
[2018-12-06] MEDS: (Ezetimibe [Zetia] 10 MG) PO SCH (20:09)
[2018-12-06] MEDS: Spironolactone 25 MG TABLET PO SCH (20:14)
[2018-12-06] MEDS: BuPROPion XL (24 HR) 150 MG TABLET PO SCH (20:14)
[2018-12-06] MEDS: Vitamin B Complex/Vit C/Vit E 1 EACH TABLET PO SCH (20:14)
[2018-12-06] MEDS: Cholecalciferol (D-3) 1,000 UNIT (25MCG) TABLET PO SCH (20:14)
[2018-12-06] MEDS: *HR* LORazepam 1 MG TABLET PO PRN (20:18)
[2018-12-06] MEDS: GuaiFENesin/Codeine Oral Soln 5 ML UDC PO PRN (21:36)
[2018-12-06] MEDS: *HR* Promethazine 25 MG/ML VIAL IVP PRN (21:36)
[2018-12-06] MEDS: Insulin LISPRO 300 UNITS/3 ML VIAL SQ SCH (21:40)
[2018-12-06] MEDS ORDERED: Metoclopramide 10 MG/10 ML UD.LIQ PO SCH (22:00)
[2018-12-06] MEDS: Budesonide/Formoterol 160/4.5 1 PUFF INH IH SCH (22:42)
[2018-12-07 03:57] LABS: Basophils % 0.1 %; Eosinophils # 0.1 K/mcL (0.0-0.6); Eosinophils % 0.8 %; Hematocrit 41.9 % (35.3-44.9); Immature Granulocytes % 0.4 % (0-4); Lymphocytes % 13.2 %; Mean Corpuscular HGB Conc 32.2 g/dL (31.6-35.5); Mean Corpuscular Volume 90.1 fL (83.0-100.0); Mean Platelet Volume 8.7 fL (9.4-12.4); Monocytes # 0.5 K/mcL (0.0-1.3); Monocytes % 6.8 %; Neutrophils # 5.7 K/mcL (1.6-8.9); Platelet Count 167 K/mcL (140-400); Red Blood Count 4.65 M/mcL (3.82-4.97); Red Cell Distribution Width 14.1 % (11.5-14.5); Segmented Neutrophils % 78.7 %; White Blood Count 7.3 K/mcL (4.3-11.1)
[2018-12-07 03:58] LABS: Hemoglobin 13.5 g/dL (11.5-15.4)
[2018-12-07 04:20] LABS: BUN/Creatinine Ratio 19 (6-26); Blood Urea Nitrogen 15 mg/dL (8-23); Calcium 9.3 mg/dL (8.6-10.3); Carbon Dioxide 22 mEq/L (23-29); Chloride 101 mEq/L (98-107); Glucose 240 mg/dL (70-105); Osmolality,Calculated 291 (280-300); Potassium 3.9 mEq/L (3.5-5.1); Sodium 136 mEq/L (136-145); eGFR For African Americans > 60 (> 60); eGFR For Non-African Americans > 60 (> 60)
[2018-12-07] MEDS: *HR* Heparin 5,000 UNIT/ML VIAL SQ SCH ×2 (05:41→16:50)
--- NOTE | 2018-12-07 08:36 | Internal Med Progress Note ---
<LancehardeepMonique - Last Filed: 12/07/18 12:07> Hospitalist Progress Note - Encounter Date of Encounter: 12/07/18 Time of Encounter: 08:30 - Exam Vitals: Temp Pulse Resp BP Pulse Ox 97.4 F L 75 18 138/83 99 12/07/18 11:56 12/07/18 11:56 12/07/18 11:56 12/07/18 11:56 12/07/18 11:56 - Time Spent with Patient Total time spent is greater than 50% in coordination of care (as documented) at patient's floor/unit and/or counseling patient: Internal Medicine: Result - Labs CBC & Chem 7: 12/07/18 03:33 12/07/18 03:33 Labs: Short CBC 12/06/18 12/07/18 Range/Units 13:39 03:33 WBC 12.6 H D 7.3 (4.3-11.1) K/mcL Hgb 15.2 D 13.5 D (11.5-15.4) g/dL Hct 45.8 H 41.9 (35.3-44.9) % Plt Count 198 167 (140-400) K/mcL Neutrophils # 5.7 (1.6-8.9) K/mcL BMP 12/06/18 12/07/18 13:39 03:33 Sodium 139 136 Potassium 3.5 3.9 Chloride 102 101 Carbon Dioxide 23 22 L BUN 17 15 Creatinine 0.84 0.79 Glucose 53 L 240 H Calcium 9.9 9.3 Cardiac Enzymes 12/06/18 Range/Units 13:39 Troponin I < 0.03 (< 0.04) ng/mL - ABG Interpretation ABG results: PT/INR, D-dimer PT 11.8 Seconds (9.4-12.1) 12/06/18 13:39 - Impressions Impressions Head CT 12/06/18 13:01 IMPRESSION: 1. No acute intracranial abnormality. D/ / Manolo Mejia MD / Manolo Mejia MD Interpreting Provider: Manolo Mejia MD Hand X-Ray 12/06/18 13:11 IMPRESSION: No evidence of acute fracture or dislocation. D/ / Bobby Lemus / Bobby Lemus Interpreting Provider: Bobby Lemus Consult Discharge Plan - Plan Referrals: Nithin Lopez DO [Primary Care Provider] - (Appointment has been requested. ) - Attending Attestation I saw evaluated and examined this patient and reviewed objective data including labs and my medical decision-making was reviewed with the Resident Physician, Poppy Hinkle. I agree with the documented findings, disposition and treatment plan as described except to any changes set forth below. We independently had [id number] contact with the patient. Patient continues to feel sick and nauseated. She also complains of pain in her left hand and both lower extremities. She has chronic peripheral neuropathy but had adverse reaction to gabapentin and so she is not currently on any medications for this. She denies any fevers or chills. No chest pain or palpitations. No focal deficits on exam. MRI of the left hand and brain ordered. We will attempt this today with 2 mg of IV Ativan. If unable to obtain MRI today, will consider doing MRI with anesthesia support. For her peripheral neuropathy, will consider starting Lyrica to see if it will help with her symptoms. Hypoglycemia has resolved. Blood sugars are now elevated. We will increase insulin regimen to medium scale. Will consult oncology for evaluation as patient and family are concerned that she is having side effects from her cranial irradiation. No further syncopal episodes or seizure like activity reported. <Poppy Hinkle I - Last Filed: 12/07/18 14:05> Hospitalist Progress Note - Encounter Date of Encounter: 12/07/18 - Subjective Interval History: Today patient is seen and examined . she is more dyspnic . feels very weak and tired also complain of sever left hand pain , no chest pain or palpitation . able to walk to bathroom . no N/V/D/C . no fever or chills . No further syncopal episodes or seizure like activity reported. - Exam Vitals: Temp Pulse Resp BP Pulse Ox 98.3 F 72 18 157/81 100 12/07/18 07:47 12/07/18 07:47 12/07/18 07:47 12/07/18 07:47 12/07/18 07:47 Exam: Gen: alert/oriented,wearing CPAP no dysarthria noted, clear speech. Head: atraumatic, normocephalic. non tender to palpation ENT: EOMI, JESÚS, no oropharyngeal erythema, mucous membranes moist, Neck: No thyromegaly appreciated. Neck supple no cervical lymphadenopathy. Resp: CTAB, no wheezing, mild rhonchi in L lower lung bases, or rhales. CV: RRR, Normal S1 and S2. No murmur, gallops, or rubs. GI/Abdominal exam: obese, bowel sounds x4, soft, non-tender, non- distended; no hepatosplenomegaly Skin: intact; no rashes, lesions, or bruising. Ext: No cyanosis or edema. pulses + bilaterally UE and LE. Neuro: intact strength in bilateral upper and lower extrimities , no decraese in sensations , able to walk to bathroom . no slurry speech or focal deficit - Assessment and Plan (1) Weakness Current Visit: No Status: Acute Assessment and Plan: Patient presented with weakness in bilateral lower extrimities that lead her to fall and hit her face and left hand cause unknown could be due to peripheral Neuropathy vs hypoglycemia vs seizure vs TIA Patient still feels weak but No further syncopal episodes or seizure like activity reported head CT negative will onsider MRI saturday with anesthesia support. For her peripheral neuropathy, will consider starting Lyrica Hypoglycemia has resolved. Blood sugars are now elevated. will consult oncology (2) Fall Current Visit: No Status: Acute Assessment and Plan: plan as above (3) Hypoglycemia Current Visit: No Status: Acute Assessment and Plan: resolved . her blood sugar is high we increase to mediun SSI (4) Lung cancer Current Visit: No Status: Acute Assessment and Plan: SCLC status post chemo and radiation in October Follow-up with Dr. Oakes and Dr. Ace as outpatient. oncology consult tomorrow - Time Spent with Patient Total time spent is greater than 50% in coordination of care (as documented) at patient's floor/unit and/or counseling patient: Internal Medicine: Result - Labs CBC & Chem 7: 12/07/18 03:33 12/07/18 03:33 Labs: Short CBC 12/06/18 12/07/18 Range/Units 13:39 03:33 WBC 12.6 H D 7.3 (4.3-11.1) K/mcL Hgb 15.2 D 13.5 D (11.5-15.4) g/dL Hct 45.8 H 41.9 (35.3-44.9) % Plt Count 198 167 (140-400) K/mcL Neutrophils # 5.7 (1.6-8.9) K/mcL BMP 12/06/18 12/07/18 13:39 03:33 Sodium 139 136 Potassium 3.5 3.9 Chloride 102 101 Carbon Dioxide 23 22 L BUN 17 15 Creatinine 0.84 0.79 Glucose 53 L 240 H Calcium 9.9 9.3 Cardiac Enzymes 12/06/18 Range/Units 13:39 Troponin I < 0.03 (< 0.04) ng/mL - ABG Interpretation ABG results: PT/INR, D-dimer PT 11.8 Seconds (9.4-12.1) 12/06/18 13:39 - Impressions Impressions Head CT 12/06/18 13:01 IMPRESSION: 1. No acute intracranial abnormality. D/ / Manolo Mejia MD / Manolo Mejia MD Interpreting Provider: Manolo Mejia MD Hand X-Ray 12/06/18 13:11 IMPRESSION: No evidence of acute fracture or dislocation. D/ / Bobby Lemus / Bobby Lemus Interpreting Provider: Bobby Lemus <Poppy Hinkle I - Last Filed: 12/07/18 14:05> (2) Fall Qualifiers: Encounter type: initial encounter Qualified Code(s): W19.XXXA - Unspecified fall, initial encounter (4) Lung cancer Qualifiers: Laterality: unspecified laterality Lung location: unspecified part of lung Qualified Code(s): C34.90 - Malignant neoplasm of unspecified part of unspecified bronchus or lung
[2018-12-07] MEDS: Vitamin B Complex/Vit C/Vit E 1 EACH TABLET PO SCH (09:36)
[2018-12-07] MEDS: Cholecalciferol (D-3) 1,000 UNIT (25MCG) TABLET PO SCH (09:36)
[2018-12-07] MEDS: Nicotine 21 MG PATCH.TD24 TD SCH (09:37)
[2018-12-07] MEDS: BuPROPion XL (24 HR) 150 MG TABLET PO SCH (09:37)
[2018-12-07] MEDS: Spironolactone 25 MG TABLET PO SCH (09:37)
[2018-12-07] MEDS: Insulin LISPRO 300 UNITS/3 ML VIAL SQ SCH ×3 (09:39→16:51)
[2018-12-07] MEDS: (Roflumilast [Daliresp] 500 MCG) PO SCH (09:40)
[2018-12-07] MEDS: (Ezetimibe [Zetia] 10 MG) PO SCH (09:40)
[2018-12-07] MEDS: *HR* HYDROcodone/Acet 10/325 mg TABLET PO PRN ×2 (09:45→21:01)
[2018-12-07] MEDS: *HR* LORazepam 1 MG TABLET PO PRN ×2 (09:45→21:00)
[2018-12-07] MEDS: Ondansetron 4 MG/2 ML VIAL IVP PRN (09:50)
[2018-12-07] MEDS: Budesonide/Formoterol 160/4.5 1 PUFF INH IH SCH ×2 (10:18→22:59)
[2018-12-07] MEDS ORDERED: *HR* LORazepam 2 MG/ML VIAL IVP ONE (11:00)
[2018-12-07] MEDS: Pregabalin 50 MG CAPSULE PO SCH (16:49)
[2018-12-07] MEDS: GuaiFENesin/Codeine Oral Soln 5 ML UDC PO PRN (16:58)
[2018-12-07] MEDS ORDERED: Insulin LISPRO 300 UNITS/3 ML VIAL SQ SCH (21:00)
[2018-12-07] MEDS: Ipratropium/Albuterol Neb 3 ML IH SCH (23:00)
[2018-12-08] MEDS: Ipratropium/Albuterol Neb 3 ML IH SCH ×4 (03:40→22:17)
[2018-12-08] MEDS: *HR* Heparin 5,000 UNIT/ML VIAL SQ SCH ×2 (05:21→17:47)
[2018-12-08] MEDS: GuaiFENesin/Codeine Oral Soln 5 ML UDC PO PRN (05:23)
[2018-12-08 05:31] LABS: Basophils % 0.4 %; Eosinophils # 0.1 K/mcL (0.0-0.6); Hematocrit 42.3 % (35.3-44.9); Hemoglobin 13.5 g/dL (11.5-15.4); Immature Granulocytes % 0.6 % (0-4); Lymphocytes # 0.8 K/mcL (0.6-4.6); Lymphocytes % 15.6 %; Mean Corpuscular HGB Conc 31.9 g/dL (31.6-35.5); Mean Corpuscular Hemoglobin 28.3 pg (28.0-33.3); Mean Corpuscular Volume 88.7 fL (83.0-100.0); Mean Platelet Volume 8.6 fL (9.4-12.4); Monocytes # 0.3 K/mcL (0.0-1.3); Monocytes % 6.5 %; Neutrophils # 3.8 K/mcL (1.6-8.9); Platelet Count 157 K/mcL (140-400); Red Blood Count 4.77 M/mcL (3.82-4.97); Red Cell Distribution Width 14.2 % (11.5-14.5); Segmented Neutrophils % 75.9 %
[2018-12-08 05:42] LABS: BUN/Creatinine Ratio 20 (6-26); Blood Urea Nitrogen 17 mg/dL (8-23); Calcium 9.3 mg/dL (8.6-10.3); Carbon Dioxide 25 mEq/L (23-29); Chloride 98 mEq/L (98-107); Glucose 316 mg/dL (70-105); Osmolality,Calculated 292 (280-300); Potassium 3.9 mEq/L (3.5-5.1); Sodium 134 mEq/L (136-145); eGFR For African Americans > 60 (> 60); eGFR For Non-African Americans > 60 (> 60)
[2018-12-08 06:08] LABS: Folate 20.2 ng/mL (3.0-16.0)
--- NOTE | 2018-12-08 08:11 | Internal Med Progress Note ---
<Monique Le - Last Filed: 12/08/18 13:06> Hospitalist Progress Note - Encounter Date of Encounter: 12/08/18 Time of Encounter: 08:25 - Exam Vitals: Temp Pulse Resp BP Pulse Ox 98.3 F 87 17 166/75 91 12/08/18 11:03 12/08/18 11:03 12/08/18 11:03 12/08/18 11:03 12/08/18 11:03 - Time Spent with Patient Total time spent is greater than 50% in coordination of care (as documented) at patient's floor/unit and/or counseling patient: Internal Medicine: Result - Labs CBC & Chem 7: 12/08/18 05:10 12/08/18 05:10 Labs: Short CBC 12/08/18 Range/Units 05:10 WBC 5.0 (4.3-11.1) K/mcL Hgb 13.5 (11.5-15.4) g/dL Hct 42.3 (35.3-44.9) % Plt Count 157 (140-400) K/mcL Neutrophils # 3.8 (1.6-8.9) K/mcL BMP 12/08/18 05:10 Sodium 134 L Potassium 3.9 Chloride 98 Carbon Dioxide 25 BUN 17 Creatinine 0.86 Glucose 316 H Calcium 9.3 - ABG Interpretation ABG results: PT/INR, D-dimer PT 11.8 Seconds (9.4-12.1) 12/06/18 13:39 - Impressions Impressions Brain MRI 12/07/18 10:54 IMPRESSION: Symmetric diffusion restriction in the middle cerebellar peduncles. Toxic-metabolic insult should be considered, to include heroin inhalation. Additional considerations are acute demyelination, rare symmetric vascular insult, and encephalitis. There are no findings to suggest a recent pontine insult to indicate acute Wallerian degeneration. D/ / Cesar Newton MD / Cesar Newton MD Interpreting Provider: Cesar Newton MD Consult Discharge Plan - Plan Referrals: Nithin Lopez DO [Primary Care Provider] - 12/15/18 1:30 pm () - Attending Attestation I saw evaluated and examined this patient and reviewed objective data including labs and my medical decision-making was reviewed with the Resident Physician, Poppy Hinkle. I agree with the documented findings, disposition and treatment plan as described except to any changes set forth below. We independently had [id number]-[id number] contact with the patient. Patient lying in bed. Comfortable. No new focal deficits. No dizziness at this time. Nausea controlled with her current medication regimen. No abdominal pain. Continues to have lower extremity pain most likely related to neuropathy. Started on Lyrica. MRI of the brain done yesterday showed restricted diffusion or bilateral middle cerebellar peduncles. Etiology unclear. Neurology consulted. We will await input. PTOT consultation meantime. Continue supportive care. We will also consult oncology as family concerned about side effects from cranial irradiation. <Poppy Hinkle I - Last Filed: 12/08/18 18:02> Hospitalist Progress Note - Encounter Date of Encounter: 12/08/18 - Subjective Interval History: Today patient is seen and examined . She says she feels terrible . feels very weak and tired also complain of left hand pain , no chest pain or palpitation . able to walk to bathroom .she has nausea but no vomiting ,also complains of ve ry loose bowel movement . no fever or chills . No further syncopal episodes or seizure like activity reported. - Exam Vitals: Temp Pulse Resp BP Pulse Ox 98.3 F 61 15 166/84 93 12/08/18 06:45 12/08/18 06:45 12/08/18 06:45 12/08/18 06:45 12/08/18 06:45 Exam: Gen: alert/oriented,wearing CPAP no dysarthria noted, clear speech. Head: atraumatic, normocephalic. non tender to palpation ENT: EOMI, JESÚS, no oropharyngeal erythema, mucous membranes moist, Neck: No thyromegaly appreciated. Neck supple no cervical lymphadenopathy. Resp: CTAB, no wheezing, mild rhonchi in L lower lung bases, or rhales. CV: RRR, Normal S1 and S2. No murmur, gallops, or rubs. GI/Abdominal exam: obese, bowel sounds x4, soft, non-tender, non- distended; no hepatosplenomegaly Skin: intact; no rashes, lesions, or bruising. Ext: No cyanosis or edema. pulses + bilaterally UE and LE. Neuro: intact strength in bilateral upper and lower extrimities , no decraese in sensations , able to walk to bathroom . no slurry speech or focal deficit - Assessment and Plan (1) Weakness Current Visit: No Status: Acute Assessment and Plan: Patient continue to have weakness Brain MRI Symmetric diffusion restriction in the middle cerebellar peduncles. Toxic-metabolic insult should be considered, to include heroin inhalation. Additional considerations are acute demyelination, rare symmetric vascular insult, and encephalitis. There are no findings to suggest a recent pontine insult to indicate acute Wallerian degeneration. gaurang thompson added Numelisa and oncho consulted WBC WNL CTA neck (2) Fall Current Visit: No Status: Acute Assessment and Plan: plan as above (3) Diabetes Current Visit: No Status: Chronic Assessment and Plan: blood sugar today 316 diabetic diet (4) Hypoglycemia Current Visit: No Status: Acute Assessment and Plan: resolved . her blood sugar is high now (5) Lung cancer Current Visit: No Status: Acute Assessment and Plan: SCLC status post chemo and radiation in October plus radiation to brain Follow-up with Dr. Oakes and Dr. Ace as outpatient. oncology consult - Time Spent with Patient Total time spent is greater than 50% in coordination of care (as documented) at patient's floor/unit and/or counseling patient: Internal Medicine: Result - Labs CBC & Chem 7: 12/08/18 05:10 12/08/18 05:10 Labs: Short CBC 12/08/18 Range/Units 05:10 WBC 5.0 (4.3-11.1) K/mcL Hgb 13.5 (11.5-15.4) g/dL Hct 42.3 (35.3-44.9) % Plt Count 157 (140-400) K/mcL Neutrophils # 3.8 (1.6-8.9) K/mcL BMP 12/08/18 05:10 Sodium 134 L Potassium 3.9 Chloride 98 Carbon Dioxide 25 BUN 17 Creatinine 0.86 Glucose 316 H Calcium 9.3 - ABG Interpretation ABG results: PT/INR, D-dimer PT 11.8 Seconds (9.4-12.1) 12/06/18 13:39 - Impressions Impressions Brain MRI 12/07/18 10:54 IMPRESSION: Symmetric diffusion restriction in the middle cerebellar peduncles. Toxic-metabolic insult should be considered, to include heroin inhalation. Additional considerations are acute demyelination, rare symmetric vascular insult, and encephalitis. There are no findings to suggest a recent pontine insult to indicate acute Wallerian degeneration. D/ / Cesar Newton MD / Cesar Newton MD Interpreting Provider: Cesar Newton MD <Poppy Hinkle I - Last Filed: 12/08/18 18:02> (2) Fall Qualifiers: Encounter type: initial encounter Qualified Code(s): W19.XXXA - Unspecified fall, initial encounter (3) Diabetes Qualifiers: Diabetes mellitus type: type 2 Diabetes mellitus complication status: with other specified complication Qualified Code(s): E11.69 - Type 2 diabetes mellitus with other specified complication; Z79.4 - correction (current) use of insulin (5) Lung cancer Qualifiers: Laterality: unspecified laterality Lung location: unspecified part of lung Qualified Code(s): C34.90 - Malignant neoplasm of unspecified part of unspecifie d bronchus or lung
[2018-12-08] MEDS: Spironolactone 25 MG TABLET PO SCH (08:44)
[2018-12-08] MEDS: BuPROPion XL (24 HR) 150 MG TABLET PO SCH (08:45)
[2018-12-08] MEDS: Vitamin B Complex/Vit C/Vit E 1 EACH TABLET PO SCH (08:45)
[2018-12-08] MEDS: Pregabalin 50 MG CAPSULE PO SCH (08:45)
[2018-12-08] MEDS: Nicotine 21 MG PATCH.TD24 TD SCH (08:46)
[2018-12-08] MEDS: Cholecalciferol (D-3) 1,000 UNIT (25MCG) TABLET PO SCH (08:46)
[2018-12-08] MEDS: *HR* HYDROcodone/Acet 10/325 mg TABLET PO PRN ×2 (08:52→17:37)
[2018-12-08] MEDS: *HR* LORazepam 1 MG TABLET PO PRN ×2 (08:53→16:00)
[2018-12-08] MEDS: *HR* Promethazine 25 MG/ML VIAL IVP PRN ×2 (08:53→15:58)
[2018-12-08] MEDS: (Roflumilast [Daliresp] 500 MCG) PO SCH (08:56)
[2018-12-08] MEDS: Insulin LISPRO 300 UNITS/3 ML VIAL SQ SCH ×5 (08:56→20:24)
[2018-12-08] MEDS: (Ezetimibe [Zetia] 10 MG) PO SCH (08:56)
[2018-12-08] MEDS: Insulin DETEMIR 100 UNIT/ML X5UNITS SQ SCH ×2 (09:09→20:26)
--- NOTE | 2018-12-08 09:21 | Neurology - Consult Note ---
<Nickolas Yancey - Last Filed: 12/08/18 15:24> Date of Encounter: 12/08/18 Time of Encounter: 09:17 Assessment and Plan (1) Weakness Current Visit: No Status: Acute Presented with sx of generalized weakness, falls and dysarthria; also had hy poglycemia on admission Also reporting auditory hallucinations and tinnitus one week prior to admission Sx began on Nov 30 and have been getting progressively worse Med hx includes SCLC for which she has received chemo (Cisplatin) and prophylactic brain RADS (last RADS was one month ago) The neurological exam exhibits mild finger to nose dysmetria, dysphonia, dysarthria, and hyperesthesia of b/l legs (h/o b/l leg neuropathy); otherwise no focal findings CT head negative acute process CTA head/neck negative for flow limiting stenosis MRI brain-symmetric diffusion restriction in the middle cerebellar peduncles. Etiology unclear but differential includes acute demyelination, rare symmetric v ascular insult, encephalitis, well-aerated degeneration, ADEM, PRES, Blayne's disease, SCA or OPCA. Paraneoplasm also a consideration as well as tumor. Plan: MRI brain with contrast MRI cervical and thoracic spine XR guided LP to r/o inflammatory process Rec PT/OT and speech therapy Send neuronal nuclear AB Ceruloplasmin Send CSF for cytology, oligoclonal AB, myelin basic protein, MS panel, cytology and CSF Routine Neurology will continue to follow; further recommendations pending w/u History of Present Illness Chief complaint: generalized weakness, dysarthria and falls HPI: Ms. Loza is a 58 year old female smoker with a PMH of small cell lung cancer, s/p chemo and radiation, COPD, HTN and DM. She presents to [facility] with chief complaint of generalized weakness falls and slurred speech which began on November 302018. Of note, the patient has received chemotherapy and prophylactic brain radiation. Prophylactic radiation was last completed approximately one month ago. The patient reports that on November 30 she began to feel weak all over her legs give out resulting in a fall to the ground and hitting her head without loss of consciousness. She was brought into the ED and admitted and worked up for TIA at that time. During that admission the patient denied MRI due to being claustrophobic. However, a CT angiogram of the head showed no flow-limiting stenosis, CT of the head negative for acute intracranial abnormality and carotid duplex scan without significant stenosis. Shortly after discharge the patient began to experience increasing weakness, auditory hallucinations, tinnitus, dysphonia and worsening dysarthria. She was brought in for further evaluation. She denies any visual disturbances, parasthesias or focal motor weakness. Further, she denies any chest pain, shortness of breath a lia baseline, palpitations, nausea, vomiting, diarrhea, joint pain and/or swelling, fevers, chills, weight loss, night sweats. She does endorse dizziness, and headache. An MRI of the brain was completed showing bilateral hyperintensities with associated diffusion restriction in the bilateral cere bellar peduncles. We have completed a CT angiogram of the neck which is negative for flow-limiting stenosis. Etiology remains unclear, neurology following further workup and evaluation. Past Med Surg Social Fam HX - Past Medical History Medical history: arthritis, cancer, COPD, diabetes, fibromyalgia, hyperlipidemia, hypertension Additional medical history: lung cancer-last tx November 07 chemo and radiation Psychiatric history: anxiety, depression, panic disorder - Past Surgical History Surgical History: cholecystectomy, hysterectomy Additional surgical history: TONSILS,vocal polyps, - Social History Smoking Status: Current every day smoker Smokeless Tobacco Status: No Alcohol use: none Drug use: none - Family History Mother Living Status: Father Living Status: Medications and Allergies Budesonide/Formoterol 160/4.5 [Symbicort 160/4.5] 2 puff IH BIDR 02/11/18 [History] Ezetimibe [Zetia] 10 mg PO DAILY 02/11/18 [History] Ipratropium/Albuterol Neb [Duoneb] 3 ml IH Q6HR 02/11/18 [History] LORazepam [Ativan] 1 mg PO TID PRN 02/11/18 [History] Nitroglycerin [Nitrostat] 0.4 mg SL AD PRN 02/11/18 [History] Roflumilast [Daliresp] 500 mcg PO DAILY 02/11/18 [History] Sertraline [Zoloft] 200 mg PO DAILY 05/14/18 [History] Magic Mouthwash [Magic Mouthwash BLM] 10 ml PO Q2H PRN #960 ml 06/03/18 [Rx] Albuterol Sulfate [Proair Hfa] 2 puff IH Q6H PRN 06/16/18 [History] Sucralfate [Carafate] 1 gm PO QIDAC PRN #120 tablet 07/02/18 [Rx] Metoclopramide [Reglan] 10 mg PO QIDAC 30 Days #1200 ml 07/14/18 [Rx] Loperamide [Imodium] 2 mg PO Q4HR PRN #30 capsule 08/11/18 [Rx] Ondansetron [Zofran ODT] 8 mg SL Q8H PRN #30 tab 09/25/18 [Rx] GuaiFENesin/Codeine [ROBITUSSIN w/CODEINE] 10 - 20 ml PO Q6HR PRN 8 Days #480 liquid 10/06/18 [Rx] Bupropion HCl [Wellbutrin Xl] 300 mg PO DAILY 12/01/18 [History] HYDROcodone/Acet 10/325 mg [[place] 10-325 mg] 1 - 2 tab PO Q8HR PRN 12/01/18 [History] Metoprolol [Lopressor] 25 mg PO BID 12/01/18 [History] Spironolactone [Aldactone] 25 mg PO DAILY 12/01/18 [History] Subcutaneous Insulin Pump [T:Slim] 1 each MC AD 12/01/18 [History] Cholecalciferol (D-3) [Vitamin D] 2,000 unit PO DAILY #30 tablet 12/02/18 [Rx] Vitamin B Complex/Vit C/Vit E [Stresstab] 1 each PO DAILY #30 tablet 12/02/18 [Rx] Allergy/AdvReac Type Severity Reaction Status Date / Time eszopiclone [From Lunesta] Allergy Anxiety Verified 08/11/18 09:27 gabapentin [From Neurontin] Allergy Vomiting Verified 08/11/18 09:27 meperidine [From Demerol] Allergy Itching Verified 08/11/18 09:27 metformin Allergy Diarrhea Verified 08/11/18 09:27 All Systems: The remainder of the systems were reviewed and are negative Review of Systems: REVIEW OF SYSTEMS GENERAL: Negative for any nausea, vomiting, fevers, chills, or weight loss or night sweats Positive-decreased activity tolerance NEUROLOGIC: Negative for any blurry vision, blind spots, double vision, facial asymmetry, dysphagia, hemiparesis, hemisensory deficits, vertigo, ataxia, seizures, tingling, numbness, unilateral weakness or numbness/tingling Positive-coordination difficulty, speech/language dysfunction, garbled speech pattern, auditory hallucinations, bilateral leg weakness, hypophonia PSYCH: agitation/irritability, anxiety HEENT: Negative for any head trauma, neck trauma, neck stiffness, photophobia, phonophobia Positive-tinnitus CARDIAC: Negative for any chest pain, dyspnea on exertion, peripheral edema or palpitations PULMONARY: Negative for any shortness of breath, wheezing GASTROINTESTINAL: Positive-nausea and abdominal pain with onset of neurological symptoms GENITOURINARY: Negative for any dysuria, hematuria ENDOCRINE: Thyroid trouble, heat/cold intolerance MUSCULOSKELETAL: Positive for limitations activity., Bilateral leg weakness, falls INTEGUMENTARY: Negative for any rashes, eruptions, dryness, changes in skin/hair, nails The remainder of the review of systems reviewed and found to be negative Physical Examination - Vital Signs Vital Signs: Initial Vital Signs Temp Pulse Resp BP Pulse Ox 99.0 F 104 22 175/91 98 12/06/18 12:53 12/06/18 12:53 12/06/18 12:53 12/06/18 12:53 12/06/18 12:53 - Exam Exam: Examination: General Examination: *CONSTITUTIONAL: Alert and oriented x3, no acute distress but frail- appearing *GENERAL APPEARANCE OF PATIENT appears generally unhealthy and older than stated age *EYES: pupils equal, round, reactive to light and accommodation, conjunctiva clear without masses or ulcerations, fundi normal. *CARDIOVASCULAR: RRR, S1, S2,no peripheral edema, distal temperature normal, dorsalis pedis pulses normal. 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 No abnormal movements, fasciculations or atrophy identified. Neurological: *ORIENTATION to person, situation, time and place *LANGUAGE AND FUNCTION no significant aphasia or dysarthia was noted. *ATTENTION AND CONCENTRATION are normal *LANGUAGE FUNCTION no significant aphasia or dysarthia was noted but does appear to be hypophonic. *FUND OF KNOWLEDGE aware of current events, past history, vocabulary *MENTAL attention span and concentration normal. *CN II optic fundi were normal, no papilledema noted. *CN III,IV, PERRLA extraocular eye movements were full, no nystagmus and no ptosis noted. *CN V shows normal sensation and jaw opens symmetrically. *CN VII shows normal facial movement symmetrically, upper and lower bilaterally. *CN VIII shows no significant hearing loss on exam *CN IX-X palate elevated symmetrically *CN XI normal strength in the sternocleidomastoid muscles, symmetrical shoulder shrugging. *CN XII tongue protruded in the midline, with normal strength and movement. *SENSORY EXAMINATION light touch intact *REFLEXES: deep tendon reflexes were absent diffusely, no pathological reflexes were noted. *CEREBELLAR TESTING dysmetria on bilateral hands unable to perform heel to mar *PAIN LEVEL 0/10 Results - Laboratory Findings CBC and BMP: 12/08/18 05:10 12/08/18 05:10 Abnormal lab findings: Abnormal lab results WBC 12.6 K/mcL (4.3-11.1) H D 12/06/18 13:39 RBC 5.23 M/mcL (3.82-4.97) H 12/06/18 13:39 Hct 45.8 % (35.3-44.9) H 12/06/18 13:39 MPV 8.6 fL (9.4-12.4) L 12/08/18 05:10 Sodium 134 mEq/L (136-145) L 12/08/18 05:10 Carbon Dioxide 22 mEq/L (23-29) L 12/07/18 03:33 Glucose 316 mg/dL (70-105) H 12/08/18 05:10 POC Glucose 278 mg/dL (70-99) H 12/07/18 16:09 Folate 20.2 ng/mL (3.0-16.0) H 12/08/18 05:10 - Diagnostic Findings Additional findings: MR/MR head/brain wo con IMPRESSION: Symmetric diffusion restriction in the middle cerebellar peduncles. Toxic-metabolic insult should be considered, to include heroin inhalation. Additional considerations are acute demyelination, rare symmetric vascular insult, and encephalitis. There are no findings to suggest a recent pontine insult to indicate acute Wallerian degeneration. CT/CT head/brain wo con IMPRESSION: 1. No acute intracranial abnormality. CT/CT angio head IMPRESSION: No high-grade stenosis or focal occlusion involving intracranial or cervical vasculature. No evidence of intracranial aneurysm. CT/CT cervical spine wo con IMPRESSION: No acute intracranial abnormality. Degenerative changes involving the cervical spine described above. No cervical fracture or acute traumatic subluxation. Grade 1 degenerative anterolisthesis C4 on C5. Impressions: The right carotid arteries have minimal plaque The left internal carotid artery has a 40-59% stenosis. EV/EV echocardiogram w enhance Impressions: LVEF 55%. Normal left ventricular diastolic function. Normal LV chamber size, wall thickness and function. The right ventricle was not well visualized but appeared grossly normal in function No evidence of PFO with agitated saline contrast. No evidence of pulmonary hypertension. No obvious significant valvular dysfunction. Consult Discharge Plan - Plan Referrals: Nithin Lopez DO [Primary Care Provider] - 12/15/18 1:30 pm () <Peng Diaz - Last Filed: 12/08/18 17:27> Date of Encounter: 12/08/18 Assessment and Plan (1) Weakness Current Visit: No Status: Acute I have personally performed a [id number] assessment of the patient and have reviewed the PA/HARDWARE DESIGNER note. My impressions are as follows: I agree with the assessment and plan as documented above by the TREASURY AGENT. The differential diagnosis is very broad. However I am leaning towards hypoglycemia as the primary cause of the MRI changes. However we will proceed with the workup as documented above. Further recommendations are pending workup. History of Present Illness HPI: Chart was reviewed, patient was seen and examined independently. I agree with the history of present illness as documented above by the TREASURY AGENT. Patient does have a history of diabetes mellitus along with small cell cancer of the lung. Gross level upon admission was in the low 50s. It appears that she generally runs in the 2 to 300s. All Systems: The remainder of the systems were reviewed and are negative Review of Systems: The balance of the systems review is negative. Physical Examination - Vital Signs Vital Signs: Initial Vital Signs Temp Pulse Resp BP Pulse Ox 99.0 F 104 22 175/91 98 12/06/18 12:53 12/06/18 12:53 12/06/18 12:53 12/06/18 12:53 12/06/18 12:53 - Exam Exam: I have personally performed a [id number] assessment of the patient and have reviewed the PA/HARDWARE DESIGNER note. My impressions are as follows: I agree with the neurologic examination is documented above by the TREASURY AGENT. I would like to add that she has a large body habitus. Results - Laboratory Findings CBC and BMP: 12/08/18 05:10 12/08/18 05:10 Abnormal lab findings: Abnormal lab results WBC 12.6 K/mcL (4.3-11.1) H D 12/06/18 13:39 RBC 5.23 M/mcL (3.82-4.97) H 12/06/18 13:39 Hct 45.8 % (35.3-44.9) H 12/06/18 13:39 MPV 8.6 fL (9.4-12.4) L 12/08/18 05:10 Sodium 134 mEq/L (136-145) L 12/08/18 05:10 Carbon Dioxide 22 mEq/L (23-29) L 12/07/18 03:33 Glucose 316 mg/dL (70-105) H 12/08/18 05:10 POC Glucose 278 mg/dL (70-99) H 12/07/18 16:09 Folate 20.2 ng/mL (3.0-16.0) H 12/08/18 05:10
[2018-12-08] MEDS ORDERED: Isovue-370 500 ML BOTTLE IVP ONE (10:01)
[2018-12-08] MEDS: Budesonide/Formoterol 160/4.5 1 PUFF INH IH SCH ×2 (10:24→22:17)
[2018-12-08] MEDS: Ondansetron 4 MG/2 ML VIAL IVP PRN (11:37)
[2018-12-08] MEDS ORDERED: Gadolinium Contrast Agent (WT Based) IV PRN ×2 (15:21→16:10)
--- NOTE | 2018-12-08 16:47 | Oncology Inp Consult Note ---
Date of Encounter: 12/08/18 Time of Encounter: 16:47 Assessment and Plan (1) Lung cancer Status: Acute Assessment and plan: Stage III small cell lung cancer treated with concurrent chemoradiation. CT chest October 2018 showed good treatment response with reduction and right lung mass to 3 mm from [address] angiogram neck during this admission showed a 7 mm cavitary lesion in the right apex and few non-cavitary [address] chest showed 5 mm nodules in the lung inflammation treated/infectious. Currently no documented evidence of recurrence Qualifiers: Laterality: unspecified laterality Lung location: unspecified part of lung Qualified Code(s): C34.90 - Malignant neoplasm of unspecified part of unspecified bronchus or lung (2) Weakness Status: Acute Assessment and plan: Etiology not clear. She did receive prophylactic cranial radiation. MRI shows cerebellar changes as mentioned mainly symmetric diffusion restriction in the middle cerebellar peduncle. Usually prophylactic cranial radiation dose should not cause this finding. I discussed with Dr. Ace radiation oncology and he will be seeing the patient in consultation Paraneoplastic syndrome is in the differential. Anit Hu, Anti VGCC and Anti PCA2(MAP1B) antibodies may be ordered if available. Her general condition continued to deteriorate with progressive weakness and confusion. - Data of Consult Patient: known to practice within the last 3 years Requesting Physician: Oliver Do Primary Care Provider: Nithin Lopez DO - Consult Narrative Reason for consult: Generalized weakness and falls. Small cell lung cancer treated History of present illness: Hospitalized with generalized weakness slurred speech dysarthria. This is certainly onset within the last 3-4 days and she is getting progressively worse. Decreased level of consciousness and increased confusion. Neurology consult noted. CTA head/neck negative for flow limiting stenosis MRI brain-symmetric diffusion restriction in the middle cerebellar peduncles. Etiology unclear but differential includes acute demyelination, rare symmetric vascular insult, encephalitis, Neurology involved. Lumbar puncture and CSF analysis plant Anti-CCP antibody and anti-Nona antibody negative CBC, metabolic panel and B12 level unremarkable Paraneoplastic workup through urology in progress CT abdomen and pelvis 01/30/2019 showed nonobstructing nephrolithiasis. No malignancy. CT chest without contrast 12/18/2018 showed 5 mm nodules the right lung could be inflammatory/infectious MRI brain with and without contrast 12/18/2018 and also MRI cervical thoracic and lumbar spine negative with no evidence of malignancy Oncological history Diagnosis: Small cell carcinoma the right upper lobe, cT1b cN2 cM0 (stage IIIa) Treatment: 05/06/2018: Bronchoscopy with endobronchial ultrasound and biopsy 05/26/2018: Carboplatin/etoposide 1 cycle 06/16/2018 - 08/01/2017: Thoracic chemoradiotherapy to the right lung, hilum, mediastinum, 6000 cGy with carboplatin/etoposide 08/11/2018 - 08/13/2018: 4th cycle of carboplatin/etoposide Completed prophylactic cranial radiation 09/23/2018 - 10/07/2018; elapsed days 14 Dose: 2500 cGy in 10 fractions of 250 cGy each Past Med Surg Social Fam HX - Past Medical History Medical history: arthritis, cancer, COPD, diabetes, fibromyalgia, hyperlipidemia, hypertension Additional medical history: lung cancer-last tx November 07 chemo and radiation Psychiatric history: anxiety, depression, panic disorder - Past Surgical History Surgical History: cholecystectomy, hysterectomy Additional surgical history: TONSILS,vocal polyps, - Social History Smoking Status: Current every day smoker Smokeless Tobacco Status: No Alcohol use: none Drug use: none - Family History Mother Living Status: Father Living Status: Medications and Allergies Budesonide/Formoterol 160/4.5 [Symbicort 160/4.5] 2 puff IH BIDR 02/11/18 [History] Ezetimibe [Zetia] 10 mg PO DAILY 02/11/18 [History] Ipratropium/Albuterol Neb [Duoneb] 3 ml IH Q6HR 02/11/18 [History] LORazepam [Ativan] 1 mg PO TID PRN 02/11/18 [History] Nitroglycerin [Nitrostat] 0.4 mg SL AD PRN 02/11/18 [History] Roflumilast [Daliresp] 500 mcg PO DAILY 02/11/18 [History] Sertraline [Zoloft] 200 mg PO DAILY 05/14/18 [History] Magic Mouthwash [Magic Mouthwash BLM] 10 ml PO Q2H PRN #960 ml 06/03/18 [Rx] Albuterol Sulfate [Proair Hfa] 2 puff IH Q6H PRN 06/16/18 [History] Sucralfate [Carafate] 1 gm PO QIDAC PRN #120 tablet 07/02/18 [Rx] Metoclopramide [Reglan] 10 mg PO QIDAC 30 Days #1200 ml 07/14/18 [Rx] Loperamide [Imodium] 2 mg PO Q4HR PRN #30 capsule 08/11/18 [Rx] Ondansetron [Zofran ODT] 8 mg SL Q8H PRN #30 tab 09/25/18 [Rx] GuaiFENesin/Codeine [ROBITUSSIN w/CODEINE] 10 - 20 ml PO Q6HR PRN 8 Days #480 liquid 10/06/18 [Rx] Bupropion HCl [Wellbutrin Xl] 300 mg PO DAILY 12/01/18 [History] HYDROcodone/Acet 10/325 mg [Pearl 10-325 mg] 1 - 2 tab PO Q8HR PRN 12/01/18 [History] Metoprolol [Lopressor] 25 mg PO BID 12/01/18 [History] Spironolactone [Aldactone] 25 mg PO DAILY 12/01/18 [History] Subcutaneous Insulin Pump [T:Slim] 1 each MC AD 12/01/18 [History] Cholecalciferol (D-3) [Vitamin D] 2,000 unit PO DAILY #30 tablet 12/02/18 [Rx] Vitamin B Complex/Vit C/Vit E [Stresstab] 1 each PO DAILY #30 tablet 12/02/18 [Rx] Allergy/AdvReac Type Severity Reaction Status Date / Time eszopiclone [From Lunesta] Allergy Anxiety Verified 08/11/18 09:27 gabapentin [From Neurontin] Allergy Vomiting Verified 08/11/18 09:27 meperidine [From Demerol] Allergy Itching Verified 08/11/18 09:27 metformin Allergy Diarrhea Verified 08/11/18 09:27 Review of systems: 12 point review of system of pain. Patient has decreased level of consciousness. Able to follow commands to next 10. Most of the history was obtained from family members. She has decrease in general condition with decreasing mobility last few days. She could not get herself up after sustaining fall at home. Her condition continued to deteriorate in the hospital. She does have a Glover catheter Oncology - Exam - Constitutional Exam: GENERAL: Alert and oriented, well appearing. Mental Status: Affect appropriate for circumstances HEENT: Sclerae anicteric. No mucositis or thrush. No other oral or pharyngeal lesions or erythema. Skin: No rashes or petechiae. No evidence of skin malignancy Lymph nodes: No cervical, supraclavicular, axillary, or inguinal adenopathy. Lungs: Clear to auscultation and percussion bilaterally. Cardiovascular: Regular rate and rhythm. No gallops, murmurs, or rubs. Abdomen: Soft, nontender; no organomegaly or masses palpable. Extremities: No edema. No calf swelling or tenderness. No joint deformity. Neurologic: Generalized deconditioning and weakness. Dysarthria Consult Discharge Plan - Plan Referrals: Nithin Lopez DO [Primary Care Provider] - 12/15/18 1:30 pm () Inpatient Charges Provider: Dr. Suni Chaney Consult - Inpatient: [id number]
[2018-12-08] MEDS ORDERED: *HR* LORazepam 2 MG/ML VIAL IVP PRN (17:01)
[2018-12-09 03:21] LABS: Basophils % 0.6 %; Eosinophils # 0.1 K/mcL (0.0-0.6); Eosinophils % 1.5 %; Hematocrit 42.7 % (35.3-44.9); Hemoglobin 13.7 g/dL (11.5-15.4); Immature Granulocytes % 0.8 % (0-4); Lymphocytes # 0.9 K/mcL (0.6-4.6); Lymphocytes % 16.8 %; Mean Corpuscular HGB Conc 32.1 g/dL (31.6-35.5); Mean Corpuscular Hemoglobin 28.2 pg (28.0-33.3); Mean Corpuscular Volume 87.9 fL (83.0-100.0); Monocytes # 0.4 K/mcL (0.0-1.3); Monocytes % 7.1 %; Neutrophils # 3.8 K/mcL (1.6-8.9); Platelet Count 187 K/mcL (140-400); Red Blood Count 4.86 M/mcL (3.82-4.97); Red Cell Distribution Width 14.1 % (11.5-14.5); Segmented Neutrophils % 73.2 %; White Blood Count 5.2 K/mcL (4.3-11.1)
[2018-12-09 03:28] LABS: BUN/Creatinine Ratio 17 (6-26); Blood Urea Nitrogen 16 mg/dL (8-23); Calcium 9.6 mg/dL (8.6-10.3); Carbon Dioxide 25 mEq/L (23-29); Chloride 102 mEq/L (98-107); Glucose 189 mg/dL (70-105); Osmolality,Calculated 294 (280-300); Potassium 3.9 mEq/L (3.5-5.1); Sodium 139 mEq/L (136-145); eGFR For African Americans > 60 (> 60); eGFR For Non-African Americans > 60 (> 60)
[2018-12-09] MEDS: Ipratropium/Albuterol Neb 3 ML IH SCH ×4 (04:01→22:17)
[2018-12-09] MEDS: *HR* Heparin 5,000 UNIT/ML VIAL SQ SCH ×2 (05:46→16:54)
[2018-12-09] MEDS: GuaiFENesin/Codeine Oral Soln 5 ML UDC PO PRN (07:03)
[2018-12-09] MEDS: Spironolactone 25 MG TABLET PO SCH (07:31)
[2018-12-09] MEDS: Pregabalin 50 MG CAPSULE PO SCH (07:32)
[2018-12-09] MEDS: BuPROPion XL (24 HR) 150 MG TABLET PO SCH (07:32)
[2018-12-09] MEDS: Insulin LISPRO 300 UNITS/3 ML VIAL SQ SCH ×4 (07:32→21:41)
[2018-12-09] MEDS: Vitamin B Complex/Vit C/Vit E 1 EACH TABLET PO SCH (07:32)
[2018-12-09] MEDS: Cholecalciferol (D-3) 1,000 UNIT (25MCG) TABLET PO SCH (07:32)
[2018-12-09] MEDS: *HR* LORazepam 1 MG TABLET PO PRN (07:32)
[2018-12-09] MEDS: (Ezetimibe [Zetia] 10 MG) PO SCH (07:33)
[2018-12-09] MEDS: (Roflumilast [Daliresp] 500 MCG) PO SCH (07:33)
[2018-12-09] MEDS: Nicotine 21 MG PATCH.TD24 TD SCH (07:33)
[2018-12-09] MEDS: Insulin DETEMIR 100 UNIT/ML X5UNITS SQ SCH ×2 (07:35→21:41)
--- NOTE | 2018-12-09 07:45 | Internal Med Progress Note ---
<MimiMonique - Last Filed: 12/09/18 12:38> Hospitalist Progress Note - Encounter Date of Encounter: 12/09/18 Time of Encounter: 09:00 - Exam Vitals: Temp Pulse Resp BP Pulse Ox 98.1 F 90 18 129/66 88 12/09/18 10:59 12/09/18 10:59 12/09/18 10:59 12/09/18 10:59 12/09/18 10:59 - Time Spent with Patient Total time spent is greater than 50% in coordination of care (as documented) at patient's floor/unit and/or counseling patient: Internal Medicine: Result - Labs CBC & Chem 7: 12/09/18 02:20 12/09/18 02:20 Labs: Short CBC 12/09/18 Range/Units 02:20 WBC 5.2 (4.3-11.1) K/mcL Hgb 13.7 (11.5-15.4) g/dL Hct 42.7 (35.3-44.9) % Plt Count 187 (140-400) K/mcL Neutrophils # 3.8 (1.6-8.9) K/mcL BMP 12/09/18 02:20 Sodium 139 Potassium 3.9 Chloride 102 Carbon Dioxide 25 BUN 16 Creatinine 0.94 Glucose 189 H Calcium 9.6 - ABG Interpretation ABG results: PT/INR, D-dimer PT 11.8 Seconds (9.4-12.1) 12/06/18 13:39 - Impressions Impressions Neck CTA 12/08/18 10:01 IMPRESSION: 1. Atherosclerotic disease at bilateral carotid bifurcation, without flow-limiting stenosis by NASCET criteria. Stenosis is less than 50%. 2. No evidence of significant vertebral artery stenosis within cervical segments. No evidence of acute dissection. 3. Approximately 7 mm cavitary pulmonary nodule within right lung. Multiple noncavitary pulmonary nodules within right lung apex. These are nonspecific by imaging alone. Differential includes pulmonary metastasis, septic emboli, or infectious or inflammatory process. Please see previous report from a chest CT obtained on 11/13/2018. Continued short interval follow-up chest CT is recommended. 4. Heterogeneous enlargement the thyroid gland. Recommend thyroid ultrasound non emergently. RECOMMENDATIONS: Managing Incidental Thyroid Nodule Detected at CT or MRI or US Follow up thyroid ultrasound also recommend in these scenarios - Solitary nodule with high risk imaging features (locally invasive nodule or suspicious lymph nodes) - Heterogeneous, enlarged thyroid gland. - Increased uptake on PET Note: These recommendations do not apply to pts. w/ increased risk for thyroid cancer or pts. with symptomatic thyroid disease. Recommendations for f/u of Incidental Thyroid Nodules (ITN) found on CT, MR, NM and Extrathyroidal US are based upon the ACR white paper and Mckenna 3-tiered system for managing ITNs: J Am Irasema Radiol. 2015 May;12(2): 143-50 D/ / 12/08/2018 13:56:08 Rob Reddy MD / earnold Interpreting Provider: Rob Reddy MD Brain MRI 12/08/18 15:21 IMPRESSION: Brain: Limited exam as only T1 images were provided in the axial and coronal planes There is no enhancing mass. Cervical spine: Mild degenerative disc disease in the cervical spine as described. See above for details of each level There is no mass or abnormal enhancement Thoracic spine: Multilevel degenerative disc disease in the thoracic spine, greatest at T12-L1. See above for details. There is no mass or abnormal enhancement D/ / Blayne Corona / Blayne Corona Interpreting Provider: Blayne Corona Cervical Spine MRI 12/08/18 16:10 IMPRESSION: Brain: Limited exam as only T1 images were provided in the axial and coronal planes There is no enhancing mass. Cervical spine: Mild degenerative disc disease in the cervical spine as described. See above for details of each level There is no mass or abnormal enhancement Thoracic spine: Multilevel degenerative disc disease in the thoracic spine, greatest at T12-L1. See above for details. There is no mass or abnormal enhancement D/ / Blayne Corona / Blayne Corona Interpreting Provider: Blayne Corona Thoracic Spine MRI 12/08/18 16:10 IMPRESSION: Brain: Limited exam as only T1 images were provided in the axial and coronal planes There is no enhancing mass. Cervical spine: Mild degenerative disc disease in the cervical spine as described. See above for details of each level There is no mass or abnormal enhancement Thoracic spine: Multilevel degenerative disc disease in the thoracic spine, greatest at T12-L1. See above for details. There is no mass or abnormal enhancement D/ / Blayne Corona / Blayne Corona Interpreting Provider: Blayne Corona Wrist CT 12/08/18 16:11 IMPRESSION: 1. No acute osseous abnormality. 2. Mild nonspecific subcutaneous fat stranding along the ulnar aspect of the distal forearm. 3. Mild radiocarpal, 1st CMC, and 1st MCP degenerative changes. D/ / Jose Webb MD / Jose Webb MD Interpreting Provider: Jose Webb MD Chest CT 12/08/18 18:18 IMPRESSION: Findings similar prior study 11/12/2018. There is bronchial wall thickening and some bronchiectasis, greatest in the right upper lobe, as well as small irregular noncalcified tiny pulmonary nodules measuring up to 5 mm, likely infectious or inflammatory. Follow-up is recommended. RECOMMENDATIONS: Fleischner Society guidelines for follow-up and management of incidentally detected pulmonary nodules: Multiple Solid Nodules: Nodule size less than 6 mm In a low-risk patient, no routine follow-up. In a high-risk patient, optional CT at 12 months. Radiology 2017 http://pubs.rsna.org/doi/full/10.1148/radiol.[email or web address] D/ / Keli Calhoun Cha, MD / Keli Calhoun Cha, MD Interpreting Provider: Keli Calhoun Cha, MD Consult Discharge Plan - Plan Referrals: Nithin Lopez DO [Primary Care Provider] - 12/15/18 1:30 pm () - Attending Attestation I saw evaluated and examined this patient and reviewed objective data including labs and my medical decision-making was reviewed with the Resident Physician, Poppy Hinkle. I agree with the documented findings, disposition and treatment plan as described except to any changes set forth below. We independently had [id number] contact with the patient. Patient is lying down in bed. Feels the same overall. Nausea remains controlled with current antiemetics. Continues to have lower extremity pain and weakness. Underwent MRI with contrast yesterday which did not show any metastatic lesions. C-spine and thoracic spine MRI was negative for any acute process. CT scan of the wrists also did not show any acute fracture. CT of the chest was also ordered by oncology and showed no new findings compared to CT done from October. Plan for lumbar puncture today. Most likely findings noted on MRI of were related to episodes of hypoglycemia. Patient no longer has had episodes of hypoglycemia here. Continue current insulin regimen. Supportive care. Physical therapy evaluation completed and recommended placement to skilled rehabilitation. service worker helper notified. <Poppy Hinkle I - Last Filed: 12/09/18 16:28> Hospitalist Progress Note - Encounter Date of Encounter: 12/09/18 - Subjective Interval History: Today patient was seen and examined at the bedside . She is doing better , more alert . Her weakness persists . She denies any worsening of symptoms and denies any further neurological deficits. Clinically, she remains stable , no fever . 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 no chest pain or SOB - Exam Vitals: Temp Pulse Resp BP Pulse Ox 98.5 F 94 15 143/70 94 12/09/18 07:14 12/09/18 07:14 12/09/18 07:14 12/09/18 03:01 12/09/18 07:14 Exam: Gen: alert/oriented x 3 , no acute distress Head: atraumatic, normocephalic. non tender to palpation ENT: EOMI, JESÚS, no oropharyngeal erythema, mucous membranes moist, Neck: No thyromegaly appreciated. Neck supple no cervical lymphadenopa thy. Resp: CTAB, no wheezing, mild rhonchi in L lower lung bases, or rhales. CV: RRR, Normal S1 and S2. No murmur, gallops, or rubs. GI/Abdominal exam: obese, bowel sounds x4, soft, non-tender, non- distended; no hepatosplenomegaly Skin: intact; no rashes, lesions, or bruising. Ext: No cyanosis or edema. pulses + bilaterally UE and LE. Neuro: intact strength in bilateral upper and lower extremities , no decraese in sensations , able to walk to bathroom with assistance . abnormal finger nose test - Assessment and Plan (1) Weakness Current Visit: No Status: Acute Assessment and Plan: Patient continue to have weakness mostly due to hypoglycemia vs paraneuplastic syndrom -Brain MRI Symmetric diffusion restriction in the middle cerebellar peduncles. -CT angiogram neck during this admission showed a 7 mm cavitary lesion in the right apex and few non-cavitary 7 mm lesions. -repeat CT chest Findings similar prior study 11/12/2018. -Paraneoplastic syndrome is in the differential. Anit neuronal nuclear pending -Ceruloplasmin pending -LP today to rule out inflammatory causes. -Thoracic and cervical MRI : There is no mass or abnormal enhancement - blood sugar well controlled , today 161 (2) Fall Current Visit: No Status: Acute Assessment and Plan: plan as above (3) Diabetes Current Visit: No Status: Chronic Assessment and Plan: blood sugar 162 on HSSI , levemir 10 unit BID diabetic diet (4) Left wrist pain Current Visit: Yes Status: Acute Assessment and Plan: due to fall on hand Xray of left wrist : no acute fracture wrist CT No acute osseous abnormality. Mild nonspecific subcutaneous fat stranding along the ulnar aspect of the distal forearm. Mild radiocarpal, 1st CMC, and 1st MCP degenerative changes. (5) Hypoglycemia Current Visit: No Status: Acute Assessment and Plan: resolved (6) Lung cancer Current Visit: No Status: Acute Assessment and Plan: Stage III small cell lung cancer treated with concurrent chemoradiation. CT chest October 2018 showed good treatment response with reduction and right lung mass to 3 mm from [address] : no acute changes - Time Spent with Patient Total time spent is greater than 50% in coordination of care (as documented) at patient's floor/unit and/or counseling patient: Internal Medicine: Result - Labs CBC & Chem 7: 12/09/18 02:20 12/09/18 02:20 Labs: Short CBC 12/09/18 Range/Units 02:20 WBC 5.2 (4.3-11.1) K/mcL Hgb 13.7 (11.5-15.4) g/dL Hct 42.7 (35.3-44.9) % Plt Count 187 (140-400) K/mcL Neutrophils # 3.8 (1.6-8.9) K/mcL BMP 12/09/18 02:20 Sodium 139 Potassium 3.9 Chloride 102 Carbon Dioxide 25 BUN 16 Creatinine 0.94 Glucose 189 H Calcium 9.6 - ABG Interpretation ABG results: PT/INR, D-dimer PT 11.8 Seconds (9.4-12.1) 12/06/18 13:39 - Impressions Impressions Neck CTA 12/08/18 10:01 IMPRESSION: 1. Atherosclerotic disease at bilateral carotid bifurcation, without flow-limiting stenosis by NASCET criteria. Stenosis is less than 50%. 2. No evidence of significant vertebral artery stenosis within cervical segments. No evidence of acute dissection. 3. Approximately 7 mm cavitary pulmonary nodule within right lung. Multiple noncavitary pulmonary nodules within right lung apex. These are nonspecific by imaging alone. Differential includes pulmonary metastasis, septic emboli, or infectious or inflammatory process. Please see previous report from a chest CT obtained on 11/13/2018. Continued short interval follow-up chest CT is recommended. 4. Heterogeneous enlargement the thyroid gland. Recommend thyroid ultrasound non emergently. RECOMMENDATIONS: Managing Incidental Thyroid Nodule Detected at CT or MRI or US Follow up thyroid ultrasound also recommend in these scenarios - Solitary nodule with high risk imaging features (locally invasive nodule or suspicious lymph nodes) - Heterogeneous, enlarged thyroid gland. - Increased uptake on PET Note: These recommendations do not apply to pts. w/ increased risk for thyroid cancer or pts. with symptomatic thyroid disease. Recommendations for f/u of Incidental Thyroid Nodules (ITN) found on CT, MR, NM and Extrathyroidal US are based upon the ACR white paper and Mckenna 3-tiered system for managing ITNs: J Am Irasema Radiol. 2015 May;12(2): 143-50 D/ / 12/08/2018 13:56:08 Rbo Reddy MD / eardomi Interpreting Provider: Rob Reddy MD Brain MRI 12/08/18 15:21 IMPRESSION: Brain: Limited exam as only T1 images were provided in the axial and coronal planes There is no enhancing mass. Cervical spine: Mild degenerative disc disease in the cervical spine as described. See above for details of each level There is no mass or abnormal enhancement Thoracic spine: Multilevel degenerative disc disease in the thoracic spine, greatest at T12-L1. See above for details. There is no mass or abnormal enhancement D/ / Blayne Corona / Blayne Corona Interpreting Provider: Blayne Corona Cervical Spine MRI 12/08/18 16:10 IMPRESSION: Brain: Limited exam as only T1 images were provided in the axial and coronal planes There is no enhancing mass. Cervical spine: Mild degenerative disc disease in the cervical spine as described. See above for details of each level There is no mass or abnormal enhancement Thoracic spine: Multilevel degenerative disc disease in the thoracic spine, greatest at T12-L1. See above for details. There is no mass or abnormal enhancement D/ / Blayne Corona / Blayne Corona Interpreting Provider: Blayne Corona Thoracic Spine MRI 12/08/18 16:10 IMPRESSION: Brain: Limited exam as only T1 images were provided in the axial and coronal planes There is no enhancing mass. Cervical spine: Mild degenerative disc disease in the cervical spine as described. See above for details of each level There is no mass or abnormal enhancement Thoracic spine: Multilevel degenerative disc disease in the thoracic spine, greatest at T12-L1. See above for details. There is no mass or abnormal enhancement D/ / Blayne Corona / Blayne Corona Interpreting Provider: Blayne Corona Wrist CT 12/08/18 16:11 IMPRESSION: 1. No acute osseous abnormality. 2. Mild nonspecific subcutaneous fat stranding along the ulnar aspect of the distal forearm. 3. Mild radiocarpal, 1st CMC, and 1st MCP degenerative changes. D/ / Jose Webb MD / Jose Webb MD Interpreting Provider: Jose Webb MD Chest CT 12/08/18 18:18 IMPRESSION: Findings similar prior study 11/12/2018. There is bronchial wall thickening and some bronchiectasis, greatest in the right upper lobe, as well as small irregular noncalcified tiny pulmonary nodules measuring up to 5 mm, likely infectious or inflammatory. Follow-up is recommended. RECOMMENDATIONS: Fleischner Society guidelines for follow-up and management of incidentally detected pulmonary nodules: Multiple Solid Nodules: Nodule size less than 6 mm In a low-risk patient, no routine follow-up. In a high-risk patient, optional CT at 12 months. 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
[2018-12-09] MEDS: Ondansetron 4 MG/2 ML VIAL IVP PRN (07:48)
--- NOTE | 2018-12-09 09:13 | Neurology Progress Note ---
<Nickolas Yancey - Last Filed: 12/09/18 15:16> Date of Encounter: 12/09/18 Time of Encounter: 09:06 Assessment and Plan (1) Weakness Current Visit: No Status: Acute The patient was seen in follow-up for weakness, dysarthria and abnormal MRI. In brief, MRI and admission showed symmetric diffusion restriction in the middle cerebellar peduncle. At this juncture we feel that the findings on the MRI are most likely result of her hypoglycemia on admission. As noted her blood glucose was 50 on admission and this is after being treated prior to arriving at the hospital. However, the differential is broad and the etiology could also be re lated to acute demyelination, rare symmetric vascular insult, encephalitis, Wallarian degeneration, ADEM, PRES, SCA, OPCA or paraneoplasm. A contrast enhanced study of MRI brain and w/wo con enhanced MRI of the cervical and thoracic spine have been completed. Contrast-enhanced MRI of the brain sub optimal and T2 or FLAIR imaging were not able to be obtained d/t movement. However, no enhancing mass was found. The cervical spine showed multilevel degenerative disc disease without stenosis, no mass or abnormal enhancement seen. The thoracic spine showed multilevel degenerative disc disease greatest at T12-L1 without canal stenosis, mass or abnormal enhancement. At this time we are waiting paraneoplastic workup. Also, and eggs are guided lumbar puncture has been ordered and will be completed this afternoon to rule out inflammatory causes. PLAN: Rec PT/OT and speech therapy Neuronal nuclear AB pending Ceruloplasmin pending Send CSF for cytology, oligoclonal AB, myelin basic protein, MS panel, cytology and CSF Routine Consider repeat MRI diffusion imaging tomorrow Neurology will continue to follow; further recommendations pending w/u Subjective Principal diagnosis: generalized weakness, falls, dysarthria; unknown etiology Interval history: The chart was reviewed, the patient was seen and examined at the bedside this morning. Today she reports that the generalized weakness persists as does the dysarthria. She denies any worsening of symptoms and denies any further neurological deficits. Clinically, she remains stable. I discussed contrast MRI brain findings as well as with and without contrast MRI cervical and thoracic spine findings and further plan of care. Patient and family both verbalize understanding and denies any further questions. At this time we are awaiting lumbar puncture which is scheduled for this afternoon. Objective - Constitutional Vitals: Temp Pulse Resp BP Pulse Ox 98.5 F 94 15 143/70 94 12/09/18 07:14 12/09/18 07:14 12/09/18 07:14 12/09/18 03:01 12/09/18 07:14 Exam: Examination: General Examination: *CONSTITUTIONAL: Alert and oriented x3, no acute distress but frail- appearing *GENERAL APPEARANCE OF PATIENT appears generally unhealthy and older than stated age *EYES: pupils equal, round, reactive to light and accommodation, conjunctiva clear without masses or ulcerations, fundi normal. *CARDIOVASCULAR: no peripheral edema, distal temperature normal, dorsalis pedis pulses normal. Refer to vital signs * MUSCULOSKELETAL: *GAIT AND STATION: Deferred due to weakness and frailty with high risk for falls *ASSESSMENT OF MUSCLE STRENGTH IN THE UPPER AND LOWER EXTREMITIES bilateral deltoid, bicep, tricep, facilities specialist strength, hip flexors ,anterior tibialis, dorsoflexion of the foot 4/5 *MUSCLE TONE IN THE UPPER AND LOWER EXTREMITIES normal. No abnormal movements, fasciculations or atrophy identified. Neurological: *ORIENTATION to person, situation, time and place *LANGUAGE AND FUNCTION no significant aphasia or dysarthia was noted. *ATTENTION AND CONCENTRATION are normal *LANGUAGE FUNCTION no significant aphasia or dysarthia was noted but does appear to be hypophonic. *FUND OF KNOWLEDGE aware of current events, past history, vocabulary *MENTAL attention span and concentration normal. *CN II optic fundi were normal, no papilledema noted. *CN III,IV, PERRLA extraocular eye movements were full, no nystagmus and no ptosis noted. *CN V shows normal sensation and jaw opens symmetrically. *CN VII shows normal facial movement symmetrically, upper and lower bilaterally. *CN VIII shows no significant hearing loss on exam *CN IX-X palate elevated symmetrically *CN XI normal strength in the sternocleidomastoid muscles, symmetrical shoulder shrugging. *CN XII tongue protruded in the midline, with normal strength and movement. *SENSORY EXAMINATION light touch intact *REFLEXES: deep tendon reflexes were absent diffusely, no pathological reflexes were noted. *CEREBELLAR TESTING dysmetria on bilaterally with finger to nose exam *PAIN LEVEL 0/10 Results - Laboratory Findings CBC and BMP: 12/09/18 02:20 12/09/18 02:20 Abnormal lab findings: Abnormal lab results WBC 12.6 K/mcL (4.3-11.1) H D 12/06/18 13:39 RBC 5.23 M/mcL (3.82-4.97) H 12/06/18 13:39 Hct 45.8 % (35.3-44.9) H 12/06/18 13:39 MPV 9.0 fL (9.4-12.4) L 12/09/18 02:20 Sodium 134 mEq/L (136-145) L 12/08/18 05:10 Carbon Dioxide 22 mEq/L (23-29) L 12/07/18 03:33 Glucose 189 mg/dL (70-105) H 12/09/18 02:20 POC Glucose 161 mg/dL (70-99) H 12/09/18 01:21 Folate 20.2 ng/mL (3.0-16.0) H 12/08/18 05:10 Consult Discharge Plan - Plan Referrals: Nithin Lopez, [Primary Care Provider] - 12/15/18 1:30 pm () <Peng Diaz - Last Filed: 12/09/18 17:51> Date of Encounter: 12/09/18 Assessment and Plan (1) Weakness Current Visit: No Status: Acute I have personally performed a [id number] assessment of the patient and have reviewed the PA/QUALITY CONTROL ASSOCIATE note. My impressions are as follows: I agree with the assessment and plan as documented above by the AUTOMATION CONTROLS ENGINEER. Many test is still pending. I did review the MRI results. There is no evidence of a transverse myelitis spinal cord inflammation or compression at any level. We are still awaiting the cytology on the CSF, as well as a paraneoplastic workup. Other tests to rule out evidence of acute demyelination are still pending as well. Time spent with patient today was 25 minutes with greater than 50% of the time being spent in face to face contact which consisted of counseling is been questions in coordinating care. Subjective Interval history: Chart was reviewed, the patient was seen and examined along with the AUTOMATION CONTROLS ENGINEER. Kalin banks is at bedside. Many questions were asked and answered to the family's satisfaction. I agree with the documentation of the subjective history as stated above. The lumbar puncture results were reviewed. I believe the slight increase in WBCs and elevated protein reactive changes secondary to brain radiation therapy and decreased activity levels. I do not feel this is publications sales representative of a central nervous system infectious or inflammatory process. Cytology is yet pending. Objective - Constitutional Vitals: Temp Pulse Resp BP Pulse Ox 98.7 F 102 18 119/62 89 12/09/18 17:03 12/09/18 17:03 12/09/18 17:03 12/09/18 17:03 12/09/18 17:03 Exam: I have personally performed a pwpz-ta-[id number] assessment of the patient and have reviewed the PA/QUALITY CONTROL ASSOCIATE note. My impressions are as follows: I agree with the assessment of the neurologic examination documented above by the AUTOMATION CONTROLS ENGINEER. Results - Laboratory Findings CBC and BMP: 12/09/18 02:20 12/09/18 02:20 Abnormal lab findings: Abnormal lab results WBC 12.6 K/mcL (4.3-11.1) H D 12/06/18 13:39 RBC 5.23 M/mcL (3.82-4.97) H 12/06/18 13:39 Hct 45.8 % (35.3-44.9) H 12/06/18 13:39 MPV 9.0 fL (9.4-12.4) L 12/09/18 02:20 Sodium 134 mEq/L (136-145) L 12/08/18 05:10 Carbon Dioxide 22 mEq/L (23-29) L 12/07/18 03:33 Glucose 189 mg/dL (70-105) H 12/09/18 02:20 POC Glucose 331 mg/dL (70-99) H 12/09/18 11:32 Folate 20.2 ng/mL (3.0-16.0) H 12/08/18 05:10 CSF Tot Nucleated Cells 7 TNC/mcL (0-5) H 12/09/18 12:32 CSF Glucose 147 mg/dL (40-70) H 12/09/18 12:32 CSF Total Protein 61 mg/dL (15-45) H 12/09/18 12:32
[2018-12-09] MEDS: Budesonide/Formoterol 160/4.5 1 PUFF INH IH SCH ×2 (10:40→22:17)
[2018-12-09 14:11] LABS: Red Blood Cell,CSF < 0.002 M/mcL
[2018-12-09 14:29] LABS: Glucose,CSF 147 mg/dL (40-70); Total Protein,CSF 61 mg/dL (15-45)
--- NOTE | 2018-12-09 15:52 | Electrocardiograph Report ---
[address] [address] Test Date: 2018-12-06 Pat Name: Linn Loza Department: [id number] Room: 3B14 Gender: F [employer]: : 1960 Requested By: Delroy Rizzo Order Number: [id number] Reading MD: Juvenal Jasso Measurements Intervals [place] Rate: 103 P: 79 HI: 142 QRS: 53 QRSD: 90 T: 49 QT: 357 QTc: 468 Interpretive Statements Sinus tachycardia Probable left atrial enlargement Electronically Signed On 12-09-2018 15:50:19 EDT by Juvenal Jasso
[2018-12-09 15:58] LABS: Appearance,CSF Clear (Clear)
--- NOTE | 2018-12-09 16:09 | Oncology Inp Progress Note ---
<Kacey Escobar M - Last Filed: 12/09/18 16:06> Date of Encounter: 12/09/18 Time of Encounter: 14:45 (1) Weakness Current Visit: No Status: Acute Assessment and plan: Weakness began 11/30/18. Multiple falls at home. Confusion per family. Neurology consulted and appreciate recommendations. (2) Lung cancer Current Visit: No Status: Acute Assessment and plan: Stage III small cell lung cancer treated with concurrent chemoradiation. CT chest October 2018 showed good treatment response with reduction and right lung mass to 3 mm from [address] angiogram neck during this admission showed a 7 mm cavitary lesion in the right apex and few non-cavitary [address] chest showed 5 mm nodules in the lung inflammation treated/infectious. Currently no documented evidence of recurrence Qualifiers: Laterality: unspecified laterality Lung location: unspecified part of lung Qualified Code(s): C34.90 - Malignant neoplasm of unspecified part of unspecified bronchus or lung Oncology: Subj Interval history: Linn is resting in bed with family at bedside. She arouses to voice and light touch, but is drowsy, falling back to sleep during visit. Her family notes that her weakness, fatigue and confusion began on November 30, this being her second admission since her symptoms began. She continues with intermittent nausea, vague abdominal pain and loose stools since treatment. - Constitutional General appearance: no acute distress, obese - Respiratory Respiratory exam: Present: decreased breath sounds - Cardiovascular Cardiovascular exam: Present: RRR - GI/Abdominal GI/Abdominal exam: Present: soft. Absent: tenderness - Extremities Exam Extremities exam: Present: normal inspection. Absent: pedal edema - Neurological Exam Neurological exam: Present: altered Additional comments: drowsy - Skin Skin exam: Present: normal color, warm Oncology: Obj Data - Labs CBC & Chem 7: 12/09/18 02:20 12/09/18 02:20 Consult Discharge Plan - Plan Referrals: Nithin Lopez DO [Primary Care Provider] - 12/15/18 1:30 pm () Inpatient Charges Provider: Dr. Suni Chaney <Milad Chaney - Last Filed: 12/10/18 08:22> Date of Encounter: 12/09/18 (1) Lung cancer Current Visit: No Status: Acute Qualifiers: Laterality: unspecified laterality Lung location: unspecified part of lung Qualified Code(s): C34.90 - Malignant neoplasm of unspecified part of unspecified bronchus or lung (2) Weakness Current Visit: No Status: Acute Oncology: Obj Data - Labs CBC & Chem 7: 12/10/18 03:28 12/10/18 03:28 Inpatient Charges Provider: Dr. Suni Chaney Follow up - Inpatient: [id number] - Attending Attestation I examined this patient and my medical decision-making was reviewed with the Advanced Practice Nurse. I agree with the documented findings, disposition and treatment plan as described except to the extent set forth below. Progressive weakness confusion and decreased level of consciousness. Etiology n ot clear. Discussed with Dr. Ace radiation oncology who saw her in consultation Lumbar puncture and CSF analysis noted. Mildly increased glucose and protein. No major increase in cell count. MRIs no evidence of malignancy. CT chest 5 mm lung nodules may be infectious versus inflammatory. Overall she is slightly more alert today and the last 2 days. Still mostly bedridden
[2018-12-09 16:45] LABS: Basophils,CSF 0 %; Eosinophils,CSF 0 %
[2018-12-10] MEDS: Ipratropium/Albuterol Neb 3 ML IH SCH ×4 (03:59→22:49)
[2018-12-10 04:35] LABS: Basophils % 0.7 %; Eosinophils # 0.1 K/mcL (0.0-0.6); Eosinophils % 1.8 %; Hematocrit 42.7 % (35.3-44.9); Hemoglobin 13.7 g/dL (11.5-15.4); Immature Granulocytes % 0.5 % (0-4); Lymphocytes # 0.8 K/mcL (0.6-4.6); Lymphocytes % 17.8 %; Mean Corpuscular HGB Conc 32.1 g/dL (31.6-35.5); Mean Corpuscular Hemoglobin 28.8 pg (28.0-33.3); Mean Corpuscular Volume 89.9 fL (83.0-100.0); Monocytes # 0.3 K/mcL (0.0-1.3); Neutrophils # 3.2 K/mcL (1.6-8.9); Platelet Count 171 K/mcL (140-400); Red Blood Count 4.75 M/mcL (3.82-4.97); Red Cell Distribution Width 13.9 % (11.5-14.5); Segmented Neutrophils % 72.2 %; White Blood Count 4.4 K/mcL (4.3-11.1)
[2018-12-10 04:46] LABS: BUN/Creatinine Ratio 19 (6-26); Blood Urea Nitrogen 15 mg/dL (8-23); Calcium 9.4 mg/dL (8.6-10.3); Carbon Dioxide 28 mEq/L (23-29); Chloride 102 mEq/L (98-107); Glucose 215 mg/dL (70-105); Osmolality,Calculated 295 (280-300); Potassium 3.9 mEq/L (3.5-5.1); Sodium 139 mEq/L (136-145); eGFR For African Americans > 60 (> 60); eGFR For Non-African Americans > 60 (> 60)
[2018-12-10] MEDS: *HR* Heparin 5,000 UNIT/ML VIAL SQ SCH ×2 (05:48→17:19)
--- NOTE | 2018-12-10 07:33 | Rad Onc Consult Note ---
Radiation Oncology HPI - Oncology history Comments: Diagnosis: Small cell carcinoma the right upper lobe, cT1b cN2 cM0 Previous Treatment: 05/06/2018: Bronchoscopy with endobronchial ultrasound and biopsy 05/26/2018: Carboplatin/etoposide x1 cycle 06/16/2018 - 08/01/2017: Thoracic chemoradiotherapy to the right lung, hilum, mediastinum, 6000 cGy with carboplatin/etoposide 08/11/2018 - 08/13/2018: 4th cycle of carboplatin/etoposide 09/23/2018 - 10/07/2018: Prophylactic cranial irradiation, 2500 cGy. Date: 12/09/18 Primary Care Provider: Nithin Lopez DO History of present illness: Ms. Loza is a 58-year-old female well known to me for her diagnosis of limited stage small cell lung cancer who is seen today (12/09/2018) in her hospital room with her daughter. Most of the history was obtained through her daughters account and in review of the medical record. Since the patient was last seen in clinic, she was found down in early November at home with bilateral lower extremity weakness, paresthesia, slurred speech. She was admitt ed to the hospital. CT of the head was unremarkable. She refused MRI of the brain. She was discharged however presented to the hospital a few days later following a similar episode. On this admission she did undergo MRI of the brain without contrast on 12/18/2018 demonstrating symmetric diffusion restriction in the middle cerebellar peduncles. She has been evaluated by neurology who recommended lumbar puncture with additional testing. Most of this is pending. LP was done earlier today. Subsequent MRI of the brain with contrast was performed a limited due to motion. T1 contrast enhanced images fail to demonstrate an enhancing mass. MRI of the cervical and thoracic spine demonstrated degenerative changes. Today, her symptoms persist. She is having difficulty eating due to her coordination difficulties. Her family reports that she is sleeping throughout the majority of the day. She denies any headaches. She continues to have nausea which has persisted since treatment. She is eating very little and has continued to lose weight. She denies dysphagia. CT imaging of her chest, abdomen, and pelvis demonstrated control of her small cell lung cancer. Code Status: Full Code Past Medical History: arthritis, COPD, diabetes, fibromyalgia, hyperlipidemia, hypertension Other History: Lung CA. Anxiety. BCC of lip. Sleep Apnea. Diabetic neuropathy. Diabetic retinopathy Surgical History: cholecystectomy, hysterectomy, sinus surgery, Tonsillectomy Hospitalization facilities, dates and reasons: Surgery. Pt. went to ER in May 2018 but didn't stay they wanted to admit but pt. states she didn't want to stay She was havng difficulty breathing Smoking Status: Current every day smoker Smokeless Tobacco Status: No Alcohol use: none Drug use: none Family History -Oncology: hypertension, cancer, diabetes Oncology - Medications Budesonide/Formoterol 160/4.5 [Symbicort 160/4.5] 2 puff IH BIDR 02/11/18 [History] Ezetimibe [Zetia] 10 mg PO DAILY 02/11/18 [History] Ipratropium/Albuterol Neb [Duoneb] 3 ml IH Q6HR 02/11/18 [History] LORazepam [Ativan] 1 mg PO TID PRN 02/11/18 [History] Nitroglycerin [Nitrostat] 0.4 mg SL AD PRN 02/11/18 [History] Roflumilast [Daliresp] 500 mcg PO DAILY 02/11/18 [History] Sertraline [Zoloft] 200 mg PO DAILY 05/14/18 [History] Magic Mouthwash [Magic Mouthwash BLM] 10 ml PO Q2H PRN #960 ml 06/03/18 [Rx] Albuterol Sulfate [Proair Hfa] 2 puff IH Q6H PRN 06/16/18 [History] Sucralfate [Carafate] 1 gm PO QIDAC PRN #120 tablet 07/02/18 [Rx] Metoclopramide [Reglan] 10 mg PO QIDAC 30 Days #1200 ml 07/14/18 [Rx] Loperamide [Imodium] 2 mg PO Q4HR PRN #30 capsule 08/11/18 [Rx] Ondansetron [Zofran ODT] 8 mg SL Q8H PRN #30 tab 09/25/18 [Rx] GuaiFENesin/Codeine [ROBITUSSIN w/CODEINE] 10 - 20 ml PO Q6HR PRN 8 Days #480 liquid 10/06/18 [Rx] Bupropion HCl [Wellbutrin Xl] 300 mg PO DAILY 12/01/18 [History] HYDROcodone/Acet 10/325 mg [[place] 10-325 mg] 1 - 2 tab PO Q8HR PRN 12/01/18 [History] Metoprolol [Lopressor] 25 mg PO BID 12/01/18 [History] Spironolactone [Aldactone] 25 mg PO DAILY 12/01/18 [History] Subcutaneous Insulin Pump [T:Slim] 1 each MC AD 12/01/18 [History] Cholecalciferol (D-3) [Vitamin D] 2,000 unit PO DAILY #30 tablet 12/02/18 [Rx] Vitamin B Complex/Vit C/Vit E [Stresstab] 1 each PO DAILY #30 tablet 12/02/18 [Rx] Allergy/AdvReac Type Severity Reaction Status Date / Time eszopiclone [From Lunesta] Allergy Anxiety Verified 08/11/18 09:27 gabapentin [From Neurontin] Allergy Vomiting Verified 08/11/18 09:27 meperidine [From Demerol] Allergy Itching Verified 08/11/18 09:27 metformin Allergy Diarrhea Verified 08/11/18 09:27 Review of Systems Provider Comments: A 12 point review of systems was performed. Pertinent positives and negatives are listed below and in the history of present illness. All other systems negative. Physical Exam - Vitals Vital Signs: Last Vital Signs Temp 98.5 F 12/10/18 06:52 Pulse 76 12/10/18 06:52 Resp 16 12/10/18 06:52 BP 172/82 12/10/18 06:52 Pulse Ox 95 12/10/18 06:52 Height: 1.57 m Weight: 98.8 kg ECO - Consciousness/Orientation Level Of Consciousness: Awake, Alert, Appropriate, Follows Commands Patient Orientation: Place, Name, Date of Physical Exam: GENERAL: Drowsy appearing, obese PSYCH: Affect appropriate for circumstances HEENT: Sclerae anicteric. Lungs: Clear to auscultation and percussion bilaterally. Cardiovascular: Distant heart tones Extremities: No edema. Neurologic: Alert, oriented extraoccular mvts intact, pupils equally round and reactive to light and accommodation, no facial droop, palate elevation symmetric, facial sensation intact, tongue midline, dysphonia full shoulder shrug, hearing grossly normal Motor: tone normal, 5/5 in all 4 extremities Coordination: Difficulty with finger to nose which was slow, intentional, and dysmetric Sensory: symmetric to light touch bilaterally Gait: gait not assessed Oncology- Results - Diagnostic Studies Imaging: CT OF THE CHEST WITH CONTRAST; CT OF THE ABDOMEN AND PELVIS WITH CONTRAST 11/12/2018 Significant decrease in size of the right upper lobe pulmonary nodule now measuring approximately 3 mm previously measuring 12 mm in size. Subtle 3 mm ground-glass nodule in the superior segment of the right lower lobe is new since prior exams. This may represent infectious/inflammatory nodule; however, would recommend follow-up on subsequent CTs. No evidence of lymphadenopathy. No evidence of metastatic disease in the abdomen or pelvis. CT OF THE ABDOMEN AND PELVIS WITHOUT CONTRAST 11/30/[address] evidence of acute traumatic abnormality involving the abdomen or pelvis. 2. Bilateral nephrolithiasis without hydronephrosis or ureter calculus evident. 3. Cholecystectomy. 4. Stable benign adenoma right adrenal gland requires no additional evaluation or follow-up. MRI OF THE BRAIN WITHOUT CONTRAST 12/07/2018 Symmetric diffusion restriction in the middle cerebellar peduncles. Toxic-metabolic insult should be considered, to include heroin inhalation. Additional considerations are acute demyelination, rare symmetric vascular insult, and encephalitis. There are no findings to suggest a recent pontine insult to indicate acute Wallerian degeneration. MRI OF THE BRAIN WITHOUT AND WITH CONTRAST; MRI OF THE THORACIC SPINE WITHOUT AND WITH CONTRAST; MRI OF THE CERVICAL SPINE WITHOUT AND WITH CONTRAST 12/08/2018 Brain: Limited exam as only T1 images were provided in the axial and coronal planes There is no enhancing mass. Cervical spine: Mild degenerative disc disease in the cervical spine as described. See above for details of each level There is no mass or abnormal enhancement Thoracic spine: Multilevel degenerative disc disease in the thoracic spine, greatest a T12-L1. See above for details. There is no mass or abnormal enhancement - Assessment Assessment: Assessment: 58-year-old female with recently treated limited stage small cell lung cancer status post thoracic chemoradiotherapy followed by PCI (completed 2 months ago) with 2 recent episodes of LOC, persistent somnolence, dysmetria, dysphonia of unclear etiology, workup pending Plan: Neurology favoring sequelae from hypoglycemic episodes. Additional workup for broad differential including paraneoplastic syndrome pending. I was asked to evaluate the patient regarding her recent prophylactic cranial irradiation as possible etiology for her symptoms. Cranial irradiation toxicities in nearly all cases followed to 2 categories, acute and chronic. She is out of the acute phase having completed PCI 2 months ago. Chronic radiation effects are generally demonstrated 3-6 months following treatment completion and in the setting of whole brain radiotherapy or prophylactic cranial irradiation, present as cognitive impairment and memory deficits due to effects on the hippocampus. That being said, subacute or sometimes called acute delayed (3 weeks - 3 months) neurologic toxicities have been described, but are presumed very rare. These are not well described in the literature or in clinical practice. I have not seen this occur in my clinical practice previously. This phenomenon of acute delayed encephalopathy is temporary and resolves over weeks to months not resulting in permanent disability. Temporal demyelinization has been noted. In summary, while there is some possibility that her symptoms are related to her prophylactic cranial radiation, I suspect that this is not the etiology. If I am incorrect in this suspicion, symptoms are expected to resolve over time without any specific medical therapy. She will certainly benefit from physical therapy and rehabilitation. Thank for allowing me to participate in this patient's care. Please do not hesitate in contacting me with any questions or concerns. Zack Ace MD Radiation Oncologist This report was generated using [employer].
--- NOTE | 2018-12-10 08:43 | Neurology Progress Note ---
<Nickolas Yancey - Last Filed: 12/10/18 08:40> Date of Encounter: 12/10/18 Time of Encounter: 08:40 Assessment and Plan (1) Weakness Current Visit: No Status: Acute She remains stable without any further deficits. Strength has improved today however, she is still weak overall and will require PT/OT. At this juncture the etiology for the MRI imaging remains unknown but we suspect that it was caused by hypoglycemia; as noted previously glucose was 50 on admission. MRI of the brain with contrast reveals no evidence of tumor, MRI of the cervical and thoracic spine was negative for transverse myelitis, cord inflammation or compression. LP completed yesterday, cytology pending, no signs of inflammation or infection. Paraneoplastic w/u pending and testing for acute demylination pending. Consider repeat diffusion imaging to reassess the abnormalities seen previously in the bilateral cerebellar penduncles. If these are not found on repeat studies then I would suspect that hypoglycemia is the etiology. Subjective Principal diagnosis: generalized weakness, falls, dysarthria; unknown etiology Interval history: The chart was reviewed, the patient was seen and examined at the bedside this morning. She reports that she still feel weak overall but notes that her strength has improved. Clinically, she remains stable without any further deficits for decline in condition. I discussed imaging findings, LP results, pending tests and the rest of the plan of care. Objective - Constitutional Vitals: Temp Pulse Resp BP Pulse Ox 98.5 F 76 16 172/82 95 12/10/18 06:52 12/10/18 06:52 12/10/18 06:52 12/10/18 06:52 12/10/18 06:52 Exam: Examination: General Examination: *CONSTITUTIONAL: Alert and oriented x3, no acute distress but frail- appearing *GENERAL APPEARANCE OF PATIENT appears generally unhealthy and older than stated age *EYES: pupils equal, round, reactive to light and accommodation, conjunctiva clear without masses or ulcerations, fundi normal. *CARDIOVASCULAR: no peripheral edema, distal temperature normal, dorsalis pedis pulses normal. Refer to vital signs * MUSCULOSKELETAL: *GAIT AND STATION: ambulated to bedside commode today with minimal standby assistance. No gait shuffling noted no spasticity with ambulation *ASSESSMENT OF MUSCLE STRENGTH IN THE UPPER AND LOWER EXTREMITIES bilateral deltoid, bicep, tricep, ticket taker ferryboat strength, hip flexors ,anterior tibialis, dorsoflexion of the foot 4/5 *MUSCLE TONE IN THE UPPER AND LOWER EXTREMITIES normal. No abnormal mo vements, fasciculations or atrophy identified. Neurological: *ORIENTATION to person, situation, time and place *LANGUAGE AND FUNCTION no significant aphasia or dysarthia was noted. *ATTENTION AND CONCENTRATION are normal *LANGUAGE FUNCTION no significant aphasia or dysarthia was noted but does appear to be hypophonic. *FUND OF KNOWLEDGE aware of current events, past history, vocabulary *MENTAL attention span and concentration normal. *CN II optic fundi were normal, no papilledema noted. *CN III,IV, PERRLA extraocular eye movements were full, no nystagmus and no ptosis noted. *CN V shows normal sensation and jaw opens symmetrically. *CN VII shows normal facial movement symmetrically, upper and lower bilaterally. *CN VIII shows no significant hearing loss on exam *CN IX-X palate elevated symmetrically *CN XI normal strength in the sternocleidomastoid muscles, symmetrical shoulder shrugging. *CN XII tongue protruded in the midline, with normal strength and movement. *SENSORY EXAMINATION light touch intact *REFLEXES: deep tendon reflexes were absent diffusely, no pathological r eflexes were noted. *CEREBELLAR TESTING dysmetria on bilaterally with finger to nose exam *PAIN LEVEL 0/10 Results - Laboratory Findings CBC and BMP: 12/10/18 03:28 12/10/18 03:28 Abnormal lab findings: Abnormal lab results WBC 12.6 K/mcL (4.3-11.1) H D 12/06/18 13:39 RBC 5.23 M/mcL (3.82-4.97) H 12/06/18 13:39 Hct 45.8 % (35.3-44.9) H 12/06/18 13:39 MPV 9.0 fL (9.4-12.4) L 12/10/18 03:28 Sodium 134 mEq/L (136-145) L 12/08/18 05:10 Carbon Dioxide 22 mEq/L (23-29) L 12/07/18 03:33 Glucose 215 mg/dL (70-105) H 12/10/18 03:28 POC Glucose 301 mg/dL (70-99) H 12/09/18 20:05 Folate 20.2 ng/mL (3.0-16.0) H 12/08/18 05:10 CSF Tot Nucleated Cells 7 TNC/mcL (0-5) H 12/09/18 12:32 CSF Glucose 147 mg/dL (40-70) H 12/09/18 12:32 CSF Total Protein 61 mg/dL (15-45) H 12/09/18 12:32 Consult Discharge Plan - Plan Referrals: Nithin Lopez DO [Primary Care Provider] - 12/15/18 1:30 pm () <Peng Diaz - Last Filed: 12/10/18 17:42> Date of Encounter: 12/10/18 Assessment and Plan (1) Weakness Current Visit: No Status: Acute I have personally performed a [id number] assessment of the patient and have reviewed the PA/SUPERVISOR DEHYDROGENATION note. My impressions are as follows: I agree with the assessment and plan as stated above. Anticipate repeating the diffusion imaging studies tomorrow. Patient continues to improve neurologically. Ultimately I would like to follow up with her after discharge as I anticipate that the remaining test will not be needed prior to that time. Multiple family members are present. 25 minutes was spent with patient today of which greater than 50% of that time was spent in [id number] contact consisted of counseling and coordinating care. Subjective Interval history: Chart was reviewed, patient was seen and examined independently. She is sitting up eating supper at this time. She is increasingly more coherent. He was able to ambulate for short distance in all yesterday. However she is still deco nditioned. Multiple studies are still pending. However overall she is improving. Patient is pressing for discharge. Objective - Constitutional Vitals: Temp Pulse Resp BP Pulse Ox 98.5 F 76 16 172/82 95 12/10/18 06:52 12/10/18 06:52 12/10/18 06:52 12/10/18 06:52 12/10/18 06:52 Exam: I have personally performed a [id number] assessment of the patient and have reviewed the PA/SUPERVISOR DEHYDROGENATION note. My impressions are as follows: A complete neurologic examination was performed on this patient. I agree with the documentation of the neurologic exam as outlined above. Results - Laboratory Findings CBC and BMP: 12/10/18 03:28 12/10/18 03:28 Abnormal lab findings: Abnormal lab results WBC 12.6 K/mcL (4.3-11.1) H D 12/06/18 13:39 RBC 5.23 M/mcL (3.82-4.97) H 12/06/18 13:39 Hct 45.8 % (35.3-44.9) H 12/06/18 13:39 MPV 9.0 fL (9.4-12.4) L 12/10/18 03:28 Sodium 134 mEq/L (136-145) L 12/08/18 05:10 Carbon Dioxide 22 mEq/L (23-29) L 12/07/18 03:33 Glucose 215 mg/dL (70-105) H 12/10/18 03:28 POC Glucose 301 mg/dL (70-99) H 12/09/18 20:05 Folate 20.2 ng/mL (3.0-16.0) H 12/08/18 05:10 CSF Tot Nucleated Cells 7 TNC/mcL (0-5) H 12/09/18 12:32 CSF Glucose 147 mg/dL (40-70) H 12/09/18 12:32 CSF Total Protein 61 mg/dL (15-45) H 12/09/18 12:32
--- NOTE | 2018-12-10 09:09 | Internal Med Progress Note ---
<Poppy Hinkle I - Last Filed: 12/10/18 13:16> Hospitalist Progress Note - Encounter Date of Encounter: 12/10/18 Time of Encounter: 09:10 - Subjective Interval History: Today patient was seen and examined at the bedside . She is doing better , more alert . Her weakness persists . She denies any worsening of symptoms and denies any further neurological deficits. Clinically, she remains stable , no fever . compensation administrator more syncope or dizziness . no chest pain or SOB - Exam Vitals: Temp Pulse Resp BP Pulse Ox 98.5 F 76 16 172/82 95 12/10/18 06:52 12/10/18 06:52 12/10/18 06:52 12/10/18 06:52 12/10/18 06:52 Exam: Gen: alert/oriented x 3 , no acute distress Head: atraumatic, normocephalic. non tender to palpation ENT: EOMI, JESÚS, no oropharyngeal erythema, mucous membranes moist, Neck: No thyromegaly appreciated. Neck supple no cervical lymphadenopathy. Resp: CTAB, no wheezing, mild rhonchi in L lower lung bases, or rhales. CV: RRR, Normal S1 and S2. No murmur, gallops, or rubs. GI/Abdominal exam: obese, bowel sounds x4, soft, non-tender, non- distended; no hepatosplenomegaly Skin: intact; no rashes, lesions, or bruising. Ext: No cyanosis or edema. pulses + bilaterally UE and LE. Neuro: intact strength in bilateral upper and lower extremities , no decraese in sensations , able to walk to bathroom with assistance . abnormal finger nose test - Assessment and Plan (1) Weakness Current Visit: No Status: Acute Assessment and Plan: Patient continue to have weakness mostly due to hypoglycemia vs paraneuplastic syndrom -Brain MRI Symmetric diffusion restriction in the middle cerebellar peduncles. -CT angiogram neck during this admission showed a 7 mm cavitary lesion in the right apex and few non-cavitary 7 mm lesions. -repeat CT chest Findings similar prior study 11/12/2018. -Paraneoplastic syndrome is in the differential. Anit neuronal nuclear pending -Ceruloplasmin pending -LP CSF cytology pending, no signs of inflammation or infection. -Thoracic and cervical MRI : There is no mass or abnormal enhancement - blood sugar today 215 -Consider repeat diffusion imaging to reassess the abnormalities seen previously in the bilateral cerebellar penduncles. If these are not found on repeat studies then I would suspect that hypoglycemia is the etiology. (2) Fall Current Visit: No Status: Acute Assessment and Plan: plan as above (3) Diabetes Current Visit: No Status: Chronic Assessment and Plan: blood sugar today 216 15 unit levemir BID high SSI diabetic diet (4) Left wrist pain Current Visit: Yes Status: Acute Assessment and Plan: resolved (5) Hypoglycemia Current Visit: No Status: Acute Assessment and Plan: resolved (6) Lung cancer Current Visit: No Status: Acute Assessment and Plan: Stage III small cell lung cancer treated with concurrent chemoradiation. CT chest October 2018 showed good treatment response with reduction and right lung mass to 3 mm from [address] : no acute changes - Time Spent with Patient Total time spent is greater than 50% in coordination of care (as documented) at patient's floor/unit and/or counseling patient: Internal Medicine: Result - Labs CBC & Chem 7: 12/10/18 03:28 12/10/18 03:28 Labs: Short CBC 12/10/18 Range/Units 03:28 WBC 4.4 (4.3-11.1) K/mcL Hgb 13.7 (11.5-15.4) g/dL Hct 42.7 (35.3-44.9) % Plt Count 171 (140-400) K/mcL Neutrophils # 3.2 (1.6-8.9) K/mcL BMP 12/10/18 03:28 Sodium 139 Potassium 3.9 Chloride 102 Carbon Dioxide 28 BUN 15 Creatinine 0.79 Glucose 215 H Calcium 9.4 - ABG Interpretation ABG results: PT/INR, D-dimer PT 11.8 Seconds (9.4-12.1) 12/06/18 13:39 - Impressions Impressions Lumbar Puncture Fluoroscopy 12/09/18 15:18 IMPRESSION: Successful fluoroscopic-guided lumbar puncture. D/ / 12/09/2018 13:03:45 Lanny Ly MD / tamie Interpreting Provider: Lanny Ly MD Consult Discharge Plan - Plan Referrals: Jessica,Nithin D, DO [Primary Care Provider] - 12/15/18 1:30 pm () <Luis Daniel Smith - Last Filed: 12/10/18 18:35> Hospitalist Progress Note - Encounter Date of Encounter: 12/10/18 - Exam Vitals: Temp Pulse Resp BP Pulse Ox 98.8 F 92 17 138/83 92 12/10/18 15:17 12/10/18 15:17 12/10/18 16:11 12/10/18 15:17 12/10/18 16:11 - Time Spent with Patient Total time spent is greater than 50% in coordination of care (as documented) at patient's floor/unit and/or counseling patient: Internal Medicine: Result - Labs CBC & Chem 7: 12/10/18 03:28 12/10/18 03:28 Labs: Short CBC 12/10/18 Range/Units 03:28 WBC 4.4 (4.3-11.1) K/mcL Hgb 13.7 (11.5-15.4) g/dL Hct 42.7 (35.3-44.9) % Plt Count 171 (140-400) K/mcL Neutrophils # 3.2 (1.6-8.9) K/mcL BMP 12/10/18 03:28 Sodium 139 Potassium 3.9 Chloride 102 Carbon Dioxide 28 BUN 15 Creatinine 0.79 Glucose 215 H Calcium 9.4 - ABG Interpretation ABG results: PT/INR, D-dimer PT 11.8 Seconds (9.4-12.1) 12/06/18 13:39 - Attending Attestation I saw evaluated and examined this patient and reviewed objective data including labs and my medical decision-making was reviewed with the Resident Physicia n/Medical Student. I agree with the documented findings, disposition and treatment plan as described except to any changes set forth below. We independently had [id number]-[id number] contact with the patient. <Poppy Hinkle I - Last Filed: 12/10/18 13:16> (2) Fall Qualifiers: Encounter type: initial encounter Qualified Code(s): W19.XXXA - Unspecified fall, initial encounter (3) Diabetes Qualifiers: Diabetes mellitus type: type 2 Diabetes mellitus complication status: with other specified complication Qualified Code(s): E11.69 - Type 2 diabetes mellitus with other specified complication; Z79.4 - intermediate designer (current) use of insulin (6) Lung cancer Qualifiers: Laterality: unspecified laterality Lung location: unspecified part of lung Qualified Code(s): C34.90 - Malignant neoplasm of unspecified part of unspecified bronchus or lung
[2018-12-10] MEDS: BuPROPion XL (24 HR) 150 MG TABLET PO SCH (09:11)
[2018-12-10] MEDS: Nicotine 21 MG PATCH.TD24 TD SCH (09:12)
[2018-12-10] MEDS: *HR* LORazepam 1 MG TABLET PO PRN (09:12)
[2018-12-10] MEDS: Vitamin B Complex/Vit C/Vit E 1 EACH TABLET PO SCH (09:12)
[2018-12-10] MEDS: Spironolactone 25 MG TABLET PO SCH (09:12)
[2018-12-10] MEDS: Pregabalin 50 MG CAPSULE PO SCH (09:12)
[2018-12-10] MEDS: *HR* HYDROcodone/Acet 10/325 mg TABLET PO PRN ×2 (09:12→17:14)
[2018-12-10] MEDS: Insulin LISPRO 300 UNITS/3 ML VIAL SQ SCH ×3 (09:13→21:01)
[2018-12-10] MEDS: Insulin DETEMIR 100 UNIT/ML X5UNITS SQ SCH ×3 (09:14→21:02)
[2018-12-10] MEDS: Cholecalciferol (D-3) 1,000 UNIT (25MCG) TABLET PO SCH (09:17)
[2018-12-10] MEDS: Budesonide/Formoterol 160/4.5 1 PUFF INH IH SCH ×2 (10:07→22:49)
[2018-12-10] MEDS ORDERED: hydrALAZINE 10 MG TABLET PO PRN ×2 (11:35→12:27)
[2018-12-10] MEDS: GuaiFENesin/Codeine Oral Soln 5 ML UDC PO PRN (15:35)
[2018-12-10] MEDS ORDERED: Insulin LISPRO 300 UNITS/3 ML VIAL SQ SCH ×2 (16:30→21:00)
[2018-12-10 19:35] LABS: Bilirubin,Urine Negative (Negative); Blood,Urine Negative (Negative); Clarity,Urine Clear (Clear); Color,Urine Yellow (Yellow); Glucose,Urine (UA) >=1000 mg/dL (Normal); Ketones,Urine Negative (Negative); Leukocyte Esterase,Urine Negative (Negative); Nitrite,Urine Negative (Negative); PH,Urine 6.5 pH Units (5.0-8.0); Protein,Urine Negative (Neg-Trace); Specific Gravity,Urine 1.023 (1.010-1.025); Urobilinogen,Urine Normal (Normal)
[2018-12-10] MEDS: Ondansetron 4 MG/2 ML VIAL IVP PRN (21:11)
[2018-12-11 02:55] LABS: Basophils % 0.4 %; Eosinophils # 0.1 K/mcL (0.0-0.6); Eosinophils % 1.5 %; Hemoglobin 13.7 g/dL (11.5-15.4); Immature Granulocytes % 0.2 % (0-4); Lymphocytes % 20.2 %; Mean Corpuscular HGB Conc 32.6 g/dL (31.6-35.5); Mean Corpuscular Hemoglobin 29.2 pg (28.0-33.3); Mean Corpuscular Volume 89.6 fL (83.0-100.0); Mean Platelet Volume 9.2 fL (9.4-12.4); Monocytes # 0.3 K/mcL (0.0-1.3); Monocytes % 6.9 %; Neutrophils # 3.4 K/mcL (1.6-8.9); Platelet Count 166 K/mcL (140-400); Red Blood Count 4.69 M/mcL (3.82-4.97); Segmented Neutrophils % 70.8 %; White Blood Count 4.8 K/mcL (4.3-11.1)
[2018-12-11 03:11] LABS: BUN/Creatinine Ratio 20 (6-26); Blood Urea Nitrogen 16 mg/dL (8-23); Calcium 9.4 mg/dL (8.6-10.3); Carbon Dioxide 27 mEq/L (23-29); Chloride 100 mEq/L (98-107); Glucose 270 mg/dL (70-105); Osmolality,Calculated 293 (280-300); Potassium 3.9 mEq/L (3.5-5.1); Sodium 136 mEq/L (136-145); eGFR For African Americans > 60 (> 60); eGFR For Non-African Americans > 60 (> 60)
[2018-12-11] MEDS: Ipratropium/Albuterol Neb 3 ML IH SCH ×4 (04:31→22:26)
[2018-12-11] MEDS: *HR* Heparin 5,000 UNIT/ML VIAL SQ SCH ×2 (05:11→18:25)
--- NOTE | 2018-12-11 08:04 | Internal Med Progress Note ---
<Thom Dueñas Lele - Last Filed: 12/11/18 14:25> Hospitalist Progress Note - Encounter Date of Encounter: 12/11/18 Time of Encounter: 09:20 - Subjective Interval History: Patient seen and examined. No acute events reported overnight. Patient reports still feeling weak, requiring a double assist to move from the bed. Chronic cough from COPD. Denies any fever, chills, chest pain, SOB, nausea, vomiting, diarrhea, constipation, or dysuria. - Exam Vitals: Temp Pulse Resp BP Pulse Ox 98.6 F 79 17 146/79 95 12/11/18 06:54 12/11/18 06:54 12/11/18 06:54 12/11/18 06:54 12/11/18 06:54 Exam: Gen: AOx3 to self, place, and month Eyes:JACK, EOMI with no conjunctivitis Throat: Moist mucous membranes with no visible oral lesions or pharyngeal erythema CV: RRR with no murmur Resp: CTA in all [place] with no wheeze or crackles GI:Soft, non-tender with no organomegally or masses palpated Neuro: CN II-XII intact with no focal deficits. Upper and lower extremity strength 4/5 Ext: DP 2/4 ben. No LE edema. Derm: No evidence of any rashes, abrasions or ulcers on exam - Assessment and Plan (1) Weakness Current Visit: No Status: Acute Assessment and Plan: Patient continue to have weakness mostly due to hypoglycemia vs paraneuplastic syndrome -Brain MRI Symmetric diffusion restriction in the middle cerebellar peduncles. -CT angiogram neck during this admission showed a 7 mm cavitary lesion in the right apex and few non-cavitary 7 mm lesions. -repeat CT chest Findings similar prior study 11/12/2018. -Paraneoplastic syndrome is in the differential. Anit neuronal nuclear pending - Vitamin B12 408 and folate 20.2 on 12/08 -Ceruloplasmin pending -LP CSF cytology 12/09 shows clear color, CSF nucleated cells 7 (high), glucose 417 (high), and total protein 61 (high) -Thoracic and cervical MRI : There is no mass or abnormal enhancement - Radiation oncology consulted 12/10 with low suspicion that the symptoms are due to the radiation. However, if they are symptoms should resolve over time without specific medial intervention - blood sugar 245- 304 over last 24 hours Plan: -Repeat diffusion MRI today (2) Fall Current Visit: No Status: Acute Assessment and Plan: -plan as above - PT/OT evaluation prior to discharge (3) Diabetes Current Visit: No Status: Chronic Assessment and Plan: - U/A 12/10 showed >1000 urine glucose - Creatinine 0.82 and eGFR > 60 on 12/11 -blood sugar today 304 on 12/11 Plan -cont 15 unit levemir and medium SSI - Diabetic diet, Hold sliding scale if she doesn't eat 75% of her meals (4) Left wrist pain Current Visit: Yes Status: Acute Assessment and Plan: resolved (5) Hypoglycemia Current Visit: No Status: Acute Assessment and Plan: resolved (6) Lung cancer Current Visit: No Status: Acute Assessment and Plan: -Stage III small cell lung cancer treated with concurrent chemoradiation. - CT chest October 2018 showed good treatment response with reduction and right lung mass to 3 mm from 12 mm -chest CT 12/08: no acute changes - anti neuronal nuclear antibody pending Plan: - cont to monitor any changes DVT Prophylaxis: Sub cutaneous heparin - Time Spent with Patient Total time spent is greater than 50% in coordination of care (as documented) at patient's floor/unit and/or counseling patient: Internal Medicine: Result - Labs CBC & Chem 7: 12/11/18 02:31 12/11/18 02:31 Labs: Short CBC 12/11/18 Range/Units 02:31 WBC 4.8 (4.3-11.1) K/mcL Hgb 13.7 (11.5-15.4) g/dL Hct 42.0 (35.3-44.9) % Plt Count 166 (140-400) K/mcL Neutrophils # 3.4 (1.6-8.9) K/mcL BMP 12/11/18 02:31 Sodium 136 Potassium 3.9 Chloride 100 Carbon Dioxide 27 BUN 16 Creatinine 0.82 Glucose 270 H Calcium 9.4 Urine 12/10/18 Range/Units 19:00 Urine Color Yellow (Yellow) Urine Clarity Clear (Clear) Urine pH 6.5 (5.0-8.0) pH Units Ur Specific [place] 1.023 (1.010-1.025) Urine Protein Negative (Neg-Trace) mg/dL Urine Glucose (UA) >=1000 H (Normal) mg/dL - ABG Interpretation ABG results: PT/INR, D-dimer PT 11.8 Seconds (9.4-12.1) 12/06/18 13:39 Consult Discharge Plan - Plan Referrals: Nithin Lopez DO [Primary Care Provider] - 12/15/18 1:30 pm () <Luis Daniel Smith - Last Filed: 12/12/18 08:45> Hospitalist Progress Note - Encounter Date of Encounter: 12/12/18 - Exam Vitals: Temp Pulse Resp BP Pulse Ox 97.6 F 71 16 135/85 97 12/12/18 07:21 12/12/18 07:21 12/12/18 07:21 12/12/18 07:21 12/12/18 07:21 - Time Spent with Patient Total time spent is greater than 50% in coordination of care (as documented) at patient's floor/unit and/or counseling patient: Internal Medicine: Result - Labs CBC & Chem 7: 12/12/18 02:12 12/12/18 02:12 Labs: Short CBC 12/12/18 Range/Units 02:12 WBC 5.0 (4.3-11.1) K/mcL Hgb 14.0 (11.5-15.4) g/dL Hct 42.7 (35.3-44.9) % Plt Count 169 (140-400) K/mcL Neutrophils # 3.8 (1.6-8.9) K/mcL BMP 12/12/18 02:12 Sodium 136 Potassium 4.2 Chloride 99 Carbon Dioxide 27 BUN 18 Creatinine 0.90 Glucose 263 H Calcium 9.7 - ABG Interpretation ABG results: PT/INR, D-dimer PT 11.8 Seconds (9.4-12.1) 12/06/18 13:39 - Impressions Impressions Brain MRI 12/11/18 09:00 IMPRESSION: 1. Re-identified is relatively symmetric restricted diffusion involving the middle cerebellar peduncles bilaterally, which is perhaps slightly improved from the prior exam. 2. No significant mass effect or midline shift. 3. Otherwise, no acute intracranial abnormality. 4. Mild global parenchymal volume loss with chronic microvascular ischemic changes. 5. Right mastoid effusion. D/ / Adrian Reddy MD / Adrian Reddy MD Interpreting Provider: Adrian Reddy MD - Attending Attestation I saw evaluated and examined this patient and reviewed objective data including labs and my medical decision-making was reviewed with the Resident Physician/Medical Student. I agree with the documented findings, disposition and treatment plan as described except to any changes set forth below. We independently had [id number]-jl-[id number] contact with the patient. <Thom Dueñas - Last Filed: 12/11/18 14:25> (2) Fall Qualifiers: Encounter type: initial encounter Qualified Code(s): W19.XXXA - Unspecified fall, initial encounter (3) Diabetes Qualifiers: Diabetes mellitus type: type 2 Diabetes mellitus complication status: with other specified complication Qualified Code(s): E11.69 - Type 2 diabetes mellitus with other specified complication; Z79.4 - [facility] (current) use of insulin (6) Lung cancer Qualifiers: Laterality: unspecified laterality Lung location: unspecified part of lung Qualified Code(s): C34.90 - Malignant neoplasm of unspecified part of unspecified bronchus or lung
[2018-12-11] MEDS: Cholecalciferol (D-3) 1,000 UNIT (25MCG) TABLET PO SCH (09:16)
[2018-12-11] MEDS: Nicotine 21 MG PATCH.TD24 TD SCH (09:16)
[2018-12-11] MEDS: Insulin DETEMIR 100 UNIT/ML X5UNITS SQ SCH ×2 (09:16→19:53)
[2018-12-11] MEDS: BuPROPion XL (24 HR) 150 MG TABLET PO SCH (09:16)
[2018-12-11] MEDS: Insulin LISPRO 300 UNITS/3 ML VIAL SQ SCH ×4 (09:17→19:53)
[2018-12-11] MEDS: Vitamin B Complex/Vit C/Vit E 1 EACH TABLET PO SCH (09:17)
[2018-12-11] MEDS: Spironolactone 25 MG TABLET PO SCH (09:17)
[2018-12-11] MEDS: Pregabalin 50 MG CAPSULE PO SCH (09:17)
[2018-12-11] MEDS: *HR* LORazepam 1 MG TABLET PO PRN ×2 (09:52→20:00)
[2018-12-11] MEDS ORDERED: *HR* LORazepam 2 MG/ML VIAL IVP ONE (10:20)
[2018-12-11] MEDS ORDERED: *HR* LORazepam 2 MG/ML VIAL ONE (10:43)
[2018-12-11] MEDS: Budesonide/Formoterol 160/4.5 1 PUFF INH IH SCH ×2 (10:50→22:26)
[2018-12-11] MEDS: *HR* HYDROcodone/Acet 10/325 mg TABLET PO PRN (13:01)
--- NOTE | 2018-12-11 13:24 | Neurology Progress Note ---
<Nickolas Yancey J - Last Filed: 12/11/18 17:03> Date of Encounter: 12/11/18 Time of Encounter: 13:23 Assessment and Plan (1) Weakness Current Visit: No Status: Acute Today she is slightly drowsy but easily arousable to verbal stimulus and kyle ented 3. She has just undergone repeat diffusion imaging and has required Ativan to completely imaging which explains the drowsy state. Neurologically she is intact without any changes to her clinical exam. She continues to have generalized weakness overall. At this juncture at the lumbar puncture has been unrevealing for any specific etiology to explain her symptoms. CSF studies and cultures are showing no growth to date. Paraneoplastic workup is pending. Repeat diffusion imaging was obtained showing reidentification of relatively symmetric diffusion restriction involving the middle cerebellar peduncles bilaterally which has perhaps slightly improved compared to prior exam. Again, no significant mass effect or midline shift identified, otherwise no acute intracranial abnormality found. No further recommendations at this time. With improvement on MRI I suspect that her previous sx and imaging findings were the result of hypoglycemia. She can f/u with Dr. Diaz in 2-3 weeks of d/c. Consider repeat imaging outpatient for f/u. Subjective Principal diagnosis: generalized weakness, falls, dysarthria; unknown etiology Interval history: The chart was reviewed, the patient was seen and examined at the bedside this afternoon. She continues to have generalized overall weakness. No acute change in condition overnight. She remains stable clinically. Objective - Constitutional Vitals: Temp Pulse Resp BP Pulse Ox 98.0 F 86 17 152/82 92 12/11/18 11:41 12/11/18 11:41 12/11/18 11:41 12/11/18 11:41 12/11/18 11:41 Exam: Examination: General Examination: *CONSTITUTIONAL: Drowsy this afternoon but no acute distress. remains frail-appearing *GENERAL APPEARANCE OF PATIENT appears generally unhealthy and older than stated age *EYES: pupils equal, round, reactive to light and accommodation, conjunctiva clear without masses or ulcerations, fundi normal. *CARDIOVASCULAR: no peripheral edema, distal temperature normal, dorsalis pedis pulses normal. Refer to vital signs * MUSCULOSKELETAL: *GAIT AND STATION: ambulated to bedside commode today with minimal standby assistance. No gait shuffling noted no spasticity with ambulation *ASSESSMENT OF MUSCLE STRENGTH IN THE UPPER AND LOWER EXTREMITIES bilateral deltoid, bicep, tricep, warp worker strength, hip flexors ,anterior tibialis, dorsoflexion of the foot 4/5 *MUSCLE TONE IN THE UPPER AND LOWER EXTREMITIES normal. No abnormal movements, fasciculations or atrophy identified. Neurological: *ORIENTATION to person, situation, time and place *LANGUAGE AND FUNCTION no significant aphasia or dysarthia was noted. *ATTENTION AND CONCENTRATION are normal *LANGUAGE FUNCTION no significant aphasia or dysarthia was noted but does appear to be hypophonic. *FUND OF KNOWLEDGE aware of current events, past history, vocabulary *MENTAL attention span and concentration normal. *CN II optic fundi were normal, no papilledema noted. *CN III,IV, PERRLA extraocular eye movements were full, no nystagmus and no ptosis noted. *CN V shows normal sensation and jaw opens symmetrically. *CN VII shows normal facial movement symmetrically, upper and lower bilaterally. *CN VIII shows no significant hearing loss on exam *CN IX-X palate elevated symmetrically *CN XI normal strength in the sternocleidomastoid muscles, symmetrical shoulder shrugging. *CN XII tongue protruded in the midline, with normal strength and movement. *SENSORY EXAMINATION light touch intact *REFLEXES: deep tendon reflexes were absent diffusely, no pathological reflexes were noted. *CEREBELLAR TESTING dysmetria on bilaterally with finger to nose exam *PAIN LEVEL 0/10 Results - Laboratory Findings CBC and BMP: 12/11/18 02:31 12/11/18 02:31 Abnormal lab findings: Abnormal lab results WBC 12.6 K/mcL (4.3-11.1) H D 12/06/18 13:39 RBC 5.23 M/mcL (3.82-4.97) H 12/06/18 13:39 Hct 45.8 % (35.3-44.9) H 12/06/18 13:39 MPV 9.2 fL (9.4-12.4) L 12/11/18 02:31 Sodium 134 mEq/L (136-145) L 12/08/18 05:10 Carbon Dioxide 22 mEq/L (23-29) L 12/07/18 03:33 Glucose 270 mg/dL (70-105) H 12/11/18 02:31 POC Glucose 281 mg/dL (70-99) H 12/10/18 11:07 Folate 20.2 ng/mL (3.0-16.0) H 12/08/18 05:10 Urine Glucose (UA) >=1000 mg/dL (Normal) H 12/10/18 19:00 CSF Tot Nucleated Cells 7 TNC/mcL (0-5) H 12/09/18 12:32 CSF Glucose 147 mg/dL (40-70) H 12/09/18 12:32 CSF Total Protein 61 mg/dL (15-45) H 12/09/18 12:32 Consult Discharge Plan - Plan Referrals: Nithin Lopez DO [Primary Care Provider] - 12/15/18 1:30 pm () <Peng Diaz - Last Filed: 12/11/18 19:04> Date of Encounter: 12/11/18 Assessment and Plan (1) Weakness Current Visit: No Status: Acute I have personally performed a [id number] assessment of the patient and have reviewed the PA/CITY LIBRARY DIRECTOR note. My impressions are as follows: Case was discussed with the CLERK RATING. I agree with his assessment and plan as stated above. I anticipate following up the patient after discharge, to consider repeating the MRI scan of the brain in 3-4 weeks. We will reevaluate at your request. Subjective Interval history: Chart reviewed, patient seen and examined independently. I agree with the history as presented above. Repeat MRI scan of the brain reveals some improvement of the diffusion abnormalities previously stated. Patient remains clinically stable from a neurologic perspective. Objective - Constitutional Vitals: Temp Pulse Resp BP Pulse Ox 98.0 F 86 16 152/82 95 12/11/18 11:41 12/11/18 11:41 12/11/18 16:17 12/11/18 11:41 12/11/18 16:17 Exam: I have personally performed a [id number] assessment of the patient and have reviewed the PA/CITY LIBRARY DIRECTOR note. My impressions are as follows: I agree with the neurologic examination as documented above. Results - Laboratory Findings CBC and BMP: 12/11/18 02:31 12/11/18 02:31 Abnormal lab findings: Abnormal lab results WBC 12.6 K/mcL (4.3-11.1) H D 12/06/18 13:39 RBC 5.23 M/mcL (3.82-4.97) H 12/06/18 13:39 Hct 45.8 % (35.3-44.9) H 12/06/18 13:39 MPV 9.2 fL (9.4-12.4) L 12/11/18 02:31 Sodium 134 mEq/L (136-145) L 12/08/18 05:10 Carbon Dioxide 22 mEq/L (23-29) L 12/07/18 03:33 Glucose 270 mg/dL (70-105) H 12/11/18 02:31 POC Glucose 308 mg/dL (70-99) H 12/10/18 20:57 Folate 20.2 ng/mL (3.0-16.0) H 12/08/18 05:10 Urine Glucose (UA) >=1000 mg/dL (Normal) H 12/10/18 19:00 CSF Tot Nucleated Cells 7 TNC/mcL (0-5) H 12/09/18 12:32 CSF Glucose 147 mg/dL (40-70) H 12/09/18 12:32 CSF Total Protein 61 mg/dL (15-45) H 12/09/18 12:32
[2018-12-11 16:42] LABS: Albumin Index 8.1 ratio (0.0-9.0); Albumin by Nephelometry 3830 mg/dL (3500-5200); IgG CSF 2.2 mg/dL (0.0-6.0)
[2018-12-11] MEDS: Ondansetron 4 MG/2 ML VIAL IVP PRN (20:00)
[2018-12-12 02:39] LABS: Basophils % 0.2 %; Eosinophils # 0.1 K/mcL (0.0-0.6); Eosinophils % 1.6 %; Hematocrit 42.7 % (35.3-44.9); Immature Granulocytes % 0.4 % (0-4); Lymphocytes # 0.8 K/mcL (0.6-4.6); Lymphocytes % 15.5 %; Mean Corpuscular HGB Conc 32.8 g/dL (31.6-35.5); Mean Corpuscular Hemoglobin 29.1 pg (28.0-33.3); Mean Corpuscular Volume 88.8 fL (83.0-100.0); Mean Platelet Volume 9.1 fL (9.4-12.4); Monocytes # 0.3 K/mcL (0.0-1.3); Monocytes % 6.3 %; Neutrophils # 3.8 K/mcL (1.6-8.9); Platelet Count 169 K/mcL (140-400); Red Blood Count 4.81 M/mcL (3.82-4.97)
[2018-12-12 02:58] LABS: BUN/Creatinine Ratio 20 (6-26); Blood Urea Nitrogen 18 mg/dL (8-23); Calcium 9.7 mg/dL (8.6-10.3); Carbon Dioxide 27 mEq/L (23-29); Chloride 99 mEq/L (98-107); Glucose 263 mg/dL (70-105); Osmolality,Calculated 293 (280-300); Potassium 4.2 mEq/L (3.5-5.1); Sodium 136 mEq/L (136-145); eGFR For African Americans > 60 (> 60); eGFR For Non-African Americans > 60 (> 60)
[2018-12-12] MEDS: Ipratropium/Albuterol Neb 3 ML IH SCH (03:53)
[2018-12-12] MEDS: *HR* Heparin 5,000 UNIT/ML VIAL SQ SCH (05:10)
[2018-12-12 07:22] VITALS: BP 135/85
[2018-12-12] MEDS: Insulin LISPRO 300 UNITS/3 ML VIAL SQ SCH (08:43)
[2018-12-12] MEDS: Vitamin B Complex/Vit C/Vit E 1 EACH TABLET PO SCH (08:44)
[2018-12-12] MEDS: Nicotine 21 MG PATCH.TD24 TD SCH (08:44)
[2018-12-12] MEDS: Insulin DETEMIR 100 UNIT/ML X5UNITS SQ SCH (08:44)
--- NOTE | 2018-12-12 08:44 | Discharge Summary ---
- NOTES TO OUTPATIENT PROVIDER Notes to Outpatient Provider: Adjust insulin with caution to avoid hypoglycemic episodes. Orders not resulted at time of discharge: Pending orders 12/08/18 11:00 Urinalysis reflex Microscopic [URIN] AM 0400 12/08/18 15:15 Cytology Other [PTH] Routine 12/08/18 18:21 Culture,CSF,with Gram Stain [RM] Routine [facility] Glycoprotein IgM Routine Neuronal Nuclear Ab IgG by IB Routine Oligoclonal Band Profile (MS) Routine Paraneoplastic Abs ([facility]CCA/MEHUL) Routine Date of Encounter: 12/12/18 Time of Encounter: 08:44 - Discharge Diagnosis (1) Weakness Priority: Primary Status: Acute (2) Fall Priority: Secondary Status: Acute Qualifiers: Encounter type: initial encounter Qualified Code(s): W19.XXXA - Unspecified fall, initial encounter (3) Hypoglycemia Priority: Secondary Status: Acute (4) Lung cancer Priority: Secondary Status: Acute Qualifiers: Laterality: unspecified laterality Lung location: unspecified part of lung Qualified Code(s): C34.90 - Malignant neoplasm of unspecified part of unspecified bronchus or lung (5) Diabetes Priority: Secondary Status: Chronic Qualifiers: Diabetes mellitus type: type 2 Diabetes mellitus complication status: with other specified complication Qualified Code(s): E11.69 - Type 2 diabetes mellitus with other specified complication; Z79.4 - nursing home (current) use of insulin Hospital course: Ms. Loza is a 58 year old female with history of small cell lung cancer status post chemotherapy and radiation along with who brain radiation prophylaxis presented to the ED with weakness, frequent falls, and slurred speech. She fell and hit her head without LOC. In the ED a CT scan of head was negative for acute process. She had recent hospitalization for similar complaints. MRI could not be done at that time because she was claustrophobic. At discharge of last hospitalization it was recommended to go to SNF but she declined. Labs today and previous hospitalization were significant for hypoglycemia. She was admitted for further workup. Blood sugars improved and weakness and mental status changes improved as well. She was hyperglycemic at this point but with the risks of returning suddenly and causing further injury, it has been slowly increasing insulin doses. Neurology was consulted, an MRI done showed symmetric diffusion restriction in the middle cerebellar peduncles. A repeat MRI done showed a slight improvement in findings. After evaluation, likely symptoms are due to hypoglycemia. She was discharged to SNF in stable condition. She will need insulin gradually increased to avoid hypoglycemia. - Time Spent with Patient Total time spent providing and/or coordinating discharge services: - Discharge Medications Prescriptions: New Pregabalin [Lyrica] 50 mg PO DAILY 5 Days #5 capsule Nicotine Patch [Nicoderm] 21 mg TD DAILY patch.td24 Continued Ipratropium/Albuterol Neb [Duoneb] 3 ml IH Q6HR Nitroglycerin [Nitrostat] 0.4 mg SL AD PRN PRN Reason: Chest Pain Ezetimibe [Zetia] 10 mg PO DAILY Budesonide/Formoterol 160/4.5 [Symbicort 160/4.5] 2 puff IH BIDR LORazepam [Ativan] 1 mg PO TID PRN PRN Reason: Anxiety Roflumilast [Daliresp] 500 mcg PO DAILY Sertraline [Zoloft] 200 mg PO DAILY Magic Mouthwash [Magic Mouthwash BLM] 10 ml PO Q2H PRN #960 ml PRN Reason: Pain Albuterol Sulfate [Proair Hfa] 2 puff IH Q6H PRN PRN Reason: Shortness Of Breath Sucralfate [Carafate] 1 gm PO QIDAC PRN #120 tablet PRN Reason: Heartburn Metoclopramide [Reglan] 10 mg PO QIDAC 30 Days #1200 ml Loperamide [Imodium] 2 mg PO Q4HR PRN #30 capsule PRN Reason: Diarrhea Ondansetron [Zofran ODT] 8 mg SL Q8H PRN #30 tab PRN Reason: Nausea GuaiFENesin/Codeine [ROBITUSSIN w/CODEINE] 10 - 20 ml PO Q6HR PRN 8 Days #480 liquid PRN Reason: Cough HYDROcodone/Acet 10/325 mg [[place] 10-325 mg] 1 - 2 tab PO Q8HR PRN PRN Reason: Pain Subcutaneous Insulin Pump [T:Slim] 1 each MC AD Bupropion HCl [Wellbutrin Xl] 300 mg PO DAILY Metoprolol [Lopressor] 25 mg PO BID Spironolactone [Aldactone] 25 mg PO DAILY Vitamin B Complex/Vit C/Vit E [Stresstab] 1 each PO DAILY #30 tablet Cholecalciferol (D-3) [Vitamin D] 2,000 unit PO DAILY #30 tablet Home Medications: Budesonide/Formoterol 160/4.5 [Symbicort 160/4.5] 2 puff IH BIDR 02/11/18 [History] Ezetimibe [Zetia] 10 mg PO DAILY 02/11/18 [History] Ipratropium/Albuterol Neb [Duoneb] 3 ml IH Q6HR 02/11/18 [History] LORazepam [Ativan] 1 mg PO TID PRN 02/11/18 [History] Nitroglycerin [Nitrostat] 0.4 mg SL AD PRN 02/11/18 [History] Roflumilast [Daliresp] 500 mcg PO DAILY 02/11/18 [History] Sertraline [Zoloft] 200 mg PO DAILY 05/14/18 [History] Magic Mouthwash [Magic Mouthwash BLM] 10 ml PO Q2H PRN #960 ml 06/03/18 [Rx] Albuterol Sulfate [Proair Hfa] 2 puff IH Q6H PRN 06/16/18 [History] Sucralfate [Carafate] 1 gm PO QIDAC PRN #120 tablet 07/02/18 [Rx] Metoclopramide [Reglan] 10 mg PO QIDAC 30 Days #1200 ml 07/14/18 [Rx] Loperamide [Imodium] 2 mg PO Q4HR PRN #30 capsule 08/11/18 [Rx] Ondansetron [Zofran ODT] 8 mg SL Q8H PRN #30 tab 09/25/18 [Rx] GuaiFENesin/Codeine [ROBITUSSIN w/CODEINE] 10 - 20 ml PO Q6HR PRN 8 Days #480 liquid 10/06/18 [Rx] Bupropion HCl [Wellbutrin Xl] 300 mg PO DAILY 12/01/18 [History] HYDROcodone/Acet 10/325 mg [[place] 10-325 mg] 1 - 2 tab PO Q8HR PRN 12/01/18 [History] Metoprolol [Lopressor] 25 mg PO BID 12/01/18 [History] Spironolactone [Aldactone] 25 mg PO DAILY 12/01/18 [History] Subcutaneous Insulin Pump [T:Slim] 1 each MC AD 12/01/18 [History] Cholecalciferol (D-3) [Vitamin D] 2,000 unit PO DAILY #30 tablet 12/02/18 [Rx] Vitamin B Complex/Vit C/Vit E [Stresstab] 1 each PO DAILY #30 tablet 12/02/18 [Rx] Nicotine Patch [Nicoderm] 21 mg TD DAILY patch.td24 12/12/18 [Rx] Pregabalin [Lyrica] 50 mg PO DAILY 5 Days #5 capsule 12/12/18 [Rx] Allergies/Adverse Reactions: Allergy/AdvReac Type Severity Reaction Status Date / Time eszopiclone [From Lunesta] Allergy Anxiety Verified 08/11/18 09:27 gabapentin [From Neurontin] Allergy Vomiting Verified 08/11/18 09:27 meperidine [From Demerol] Allergy Itching Verified 08/11/18 09:27 metformin Allergy Diarrhea Verified 08/11/18 09:27 Date of admission: 12/08/18 14:27 Primary care physician: Nithin Lopez DO Consults: 12/06/18 17:25 Consult to Director Safety Council [CONS] Routine Reason for SW Consult: discharge planning 12/07/18 12:11 Consult to Occupational Therapy [CONS] Routine Comment: Evaluate, develop and implement POC Reason for Consult: Gen weakness Does patient have active BEDREST order?: No Is patient medically & hemodynamically stable?: Yes Consult to Physical Therapy [CONS] Routine Comment: Evaluate, develop and implement POC Reason for Consult: Gen weakness Does patient have active BEDREST order?: No Is patient medically & hemodynamically stable?: Yes 12/08/18 08:12 Consult to Oncology [CONS] Routine Consulting Provider: [facility] Reason for Consult: samall cell lung cancer treated with chemo and radiation , also radiation to brain . presented with recurrent falls and weakness Call Completed: No 12/08/18 08:16 Consult to Neurology [CONS] Routine Consulting Provider: Neurology [facility] Reason for Consult: recurrent TIA like symptoms and bilateral LE weakness Call Completed: No 12/09/18 10:35 Consult to Oncology Radiation [CONS] Routine Consulting Provider: Oncology [facility] [place] Reason for Consult: small cell lung cancer (Dr. Ace) Time Notified: 10:35 Call Completed: No Discharging clinician: Luis Daniel Smith - Constitutional Vitals: Temp Pulse Resp BP Pulse Ox 97.6 F 71 16 135/85 97 12/12/18 07:21 12/12/18 07:21 12/12/18 07:21 12/12/18 07:21 12/12/18 07:21 Exam: Gen: AOx3 to self, place, and month Eyes:JACK, EOMI with no conjunctivitis Throat: Moist mucous membranes with no visible oral lesions or pharyngeal erythema CV: RRR with no murmur Resp: CTA in all larson with no wheeze or crackles GI:Soft, non-tender with no organomegally or masses palpated Neuro: CN II-XII intact with no focal deficits. Upper and lower extremity strength 4/5 Ext: DP 2/4 ben. No LE edema. Derm: No evidence of any rashes, abrasions or ulcers on exam - Patient Status Disposition: Transfer SNF Condition: Good Functional capacity at discharge: uses cane/walker Overall status at discharge: patient is progressing back to baseline - Discharge Instructions Follow Up With: Nithin Lopez DO [Primary Care Provider] - 12/15/18 1:30 pm () - Diet and Activity Activity: as per physical therapy Diet: diabetic diet
[2018-12-12] MEDS: BuPROPion XL (24 HR) 150 MG TABLET PO SCH (08:45)
[2018-12-12] MEDS: Cholecalciferol (D-3) 1,000 UNIT (25MCG) TABLET PO SCH (08:45)
[2018-12-12] MEDS: Spironolactone 25 MG TABLET PO SCH (08:45)
[2018-12-12] MEDS: Pregabalin 50 MG CAPSULE PO SCH (08:45)
--- NOTE | 2018-12-12 09:01 | Physician Discharge Referral ---
ExtendedCare Referral Info Institutional Level of Care: Skilled - Diagnosis (1) Weakness Priority: Primary Status: Acute (2) Fall Priority: Secondary Status: Acute (3) Hypoglycemia Priority: Secondary Status: Acute (4) Lung cancer Priority: Secondary Status: Acute (5) Diabetes Priority: Secondary Status: Chronic - Transfer Medications Prescriptions: Pregabalin [Lyrica] 50 mg PO DAILY 5 Days #5 capsule Home Medications: Budesonide/Formoterol 160/4.5 [Symbicort 160/4.5] 2 puff IH BIDR 02/11/18 [History] Ezetimibe [Zetia] 10 mg PO DAILY 02/11/18 [History] Ipratropium/Albuterol Neb [Duoneb] 3 ml IH Q6HR 02/11/18 [History] LORazepam [Ativan] 1 mg PO TID PRN 02/11/18 [History] Nitroglycerin [Nitrostat] 0.4 mg SL AD PRN 02/11/18 [History] Roflumilast [Daliresp] 500 mcg PO DAILY 02/11/18 [History] Sertraline [Zoloft] 200 mg PO DAILY 05/14/18 [History] Magic Mouthwash [Magic Mouthwash BLM] 10 ml PO Q2H PRN #960 ml 06/03/18 [Rx] Albuterol Sulfate [Proair Hfa] 2 puff IH Q6H PRN 06/16/18 [History] Sucralfate [Carafate] 1 gm PO QIDAC PRN #120 tablet 07/02/18 [Rx] Metoclopramide [Reglan] 10 mg PO QIDAC 30 Days #1200 ml 07/14/18 [Rx] Loperamide [Imodium] 2 mg PO Q4HR PRN #30 capsule 08/11/18 [Rx] Ondansetron [Zofran ODT] 8 mg SL Q8H PRN #30 tab 09/25/18 [Rx] GuaiFENesin/Codeine [ROBITUSSIN w/CODEINE] 10 - 20 ml PO Q6HR PRN 8 Days #480 liquid 10/06/18 [Rx] Bupropion HCl [Wellbutrin Xl] 300 mg PO DAILY 12/01/18 [History] HYDROcodone/Acet 10/325 mg [[place] 10-325 mg] 1 - 2 tab PO Q8HR PRN 12/01/18 [History] Metoprolol [Lopressor] 25 mg PO BID 12/01/18 [History] Spironolactone [Aldactone] 25 mg PO DAILY 12/01/18 [History] Subcutaneous Insulin Pump [T:Slim] 1 each MC AD 12/01/18 [History] Cholecalciferol (D-3) [Vitamin D] 2,000 unit PO DAILY #30 tablet 12/02/18 [Rx] Vitamin B Complex/Vit C/Vit E [Stresstab] 1 each PO DAILY #30 tablet 12/02/18 [Rx] Nicotine Patch [Nicoderm] 21 mg TD DAILY patch.td24 12/12/18 [Rx] Pregabalin [Lyrica] 50 mg PO DAILY 5 Days #5 capsule 12/12/18 [Rx] Allergies/Adverse Reactions: Allergy/AdvReac Type Severity Reaction Status Date / Time eszopiclone [From Lunesta] Allergy Anxiety Verified 08/11/18 09:27 gabapentin [From Neurontin] Allergy Vomiting Verified 08/11/18 09:27 meperidine [From Demerol] Allergy Itching Verified 08/11/18 09:27 metformin Allergy Diarrhea Verified 08/11/18 09:27 - Respiratory Orders Smoking Cessation: Smoking cessation has been advised. For more information, call the [place] Tobacco Quit Line at 7-195-GYBX-NOW. - Advance Directives Code Status: Full Code - Mobility Orders Other (per PT OT) - Rehabiliation Orders Rehab Orders: ROM Exercises, Evaluation for Physical Therapy, Evaluation for Occupational Therapy - Diet Orders No Concentrated Sweets CERTIFICATION: I certify that the transfer of the above named patient to an Extended Care Facility is necessary for the continuing treatment of the diagnosis listed. The above information is true and accurate reflection of patient's current condition. Confidential - Redisclosure prohibited without a patient's written consent.
[2018-12-12 09:59] LABS: IgG Serum 663 mg/dL (768-1632)
[2018-12-13 10:14] LABS: Purkinje Cell/ANNA IgG Scrn NONE DETECTED (None Detected)
== END 2018-12-12 10:25 | DRG 638 ==
LOC: 3BNU 12:51 → SUATTDRO 12-08 14:27
PROVIDERS: ADMIT Internal Medicine; ATTEND Student in an Organized Health Care Education/Training Program

== ENCOUNTER 2019-01-07 17:00 | Inpatient (IN) ==
[2019-01-07] MEDS ORDERED: Isovue-370 500 ML BOTTLE IVP ONE ×2 (17:16→18:10)
[2019-01-07] MEDS ORDERED: *HR* Promethazine 25 MG/ML VIAL IVP ONE (17:35)
[2019-01-07] MEDS ORDERED: 0.9 % Sodium Chloride 1,000 ML IVC STA (17:35)
[2019-01-07] MEDS ORDERED: *HR* FentaNYL (PF) 100 MCG/2 ML VIAL IVP ONE (17:35)
[2019-01-07 17:58] LABS: Basophils % 0.3 %; Eosinophils % 0.4 %; Hematocrit 39.6 % (35.3-44.9); Hemoglobin 13.2 g/dL (11.5-15.4); Immature Granulocytes % 0.4 % (0-4); Lymphocytes # 0.8 K/mcL (0.6-4.6); Lymphocytes % 11.4 %; Mean Corpuscular HGB Conc 33.3 g/dL (31.6-35.5); Mean Corpuscular Hemoglobin 28.9 pg (28.0-33.3); Mean Corpuscular Volume 86.7 fL (83.0-100.0); Mean Platelet Volume 8.2 fL (9.4-12.4); Monocytes # 0.3 K/mcL (0.0-1.3); Monocytes % 4.4 %; Neutrophils # 5.9 K/mcL (1.6-8.9); Platelet Count 171 K/mcL (140-400); Red Blood Count 4.57 M/mcL (3.82-4.97); Red Cell Distribution Width 13.9 % (11.5-14.5); Segmented Neutrophils % 83.1 %; White Blood Count 7.1 K/mcL (4.3-11.1)
[2019-01-07 18:17] LABS: Alanine Aminotransferase 19 Units/L (7-52); Albumin 4.2 g/dL (3.5-5.7); Albumin/Globulin Ratio 1.8 (1.1-2.2); Alkaline Phosphatase 77 Units/L (34-104); Aspartate Amino Transferase 15 Units/L (13-39); BUN/Creatinine Ratio 15 (6-26); Bilirubin,Direct 0.1 mg/dL (0.0-0.2); Bilirubin,Indirect 0.6 mg/dL (0.0-1.2); Bilirubin,Total 0.7 mg/dL (0.3-1.0); Blood Urea Nitrogen 13 mg/dL (8-23); Calcium 9.1 mg/dL (8.6-10.3); Carbon Dioxide 23 mEq/L (23-29); Chloride 103 mEq/L (98-107); Globulin 2.4 g/dL (2.4-3.5); Glucose 325 mg/dL (70-105); Lipase 5 Units/L (11-82); Osmolality,Calculated 297 (280-300); Potassium 3.7 mEq/L (3.5-5.1); Sodium 137 mEq/L (136-145); Total Protein 6.6 g/dL (6.4-8.9); eGFR For African Americans > 60 (> 60); eGFR For Non-African Americans > 60 (> 60)
[2019-01-07] MEDS ORDERED: Ondansetron 4 MG/2 ML VIAL IVP STA (19:28)
[2019-01-07] MEDS ORDERED: Haloperidol Lactate 5 MG/ML VIAL IVP ONE (20:42)
[2019-01-07] MEDS ORDERED: Azithromycin 500 MG in 0.9 % Sodium Chloride 250 ML IVPB ONE (21:08)
[2019-01-07] MEDS ORDERED: cefTRIAXone 1,000 MG in Water for inj. (sterile) 10 ML IVP ONE (21:08)
[2019-01-07] MEDS ORDERED: Nitroglycerin 0.4 MG TAB.SUBL SL PRN (22:40)
[2019-01-07] MEDS ORDERED: GuaiFENesin/Codeine Oral Soln 5 ML UDC PO PRN (22:40)
[2019-01-07] MEDS ORDERED: Sucralfate 1 GM TABLET PO PRN (22:40)
[2019-01-07] MEDS ORDERED: *HR* Dextrose 50 % in Water (Syg) 50 ML SYRINGE IVP PRN (22:42)
[2019-01-07] MEDS ORDERED: Dextrose Gel 15 GM/37.5 ML TUBE PO PRN ×2 (22:42)
[2019-01-07] MEDS ORDERED: Insulin DETEMIR 100 UNIT/ML X5UNITS SQ ONE (22:42)
[2019-01-07] MEDS ORDERED: Acetaminophen 325 MG TABLET PO PRN (22:43)
[2019-01-07] MEDS ORDERED: Ondansetron 4 MG/2 ML VIAL IVP PRN (22:43)
[2019-01-07] MEDS: *HR* Promethazine 25 MG/ML VIAL IVP PRN (23:33)
[2019-01-07] MEDS: *HR* HYDROcodone/Acet 10/325 mg TABLET PO PRN (23:34)
[2019-01-08] MEDS: Ringers Solution, Lactated 1,000 ML IVC SCH ×2 (00:41→05:57)
[2019-01-08] MEDS: Insulin LISPRO 300 UNITS/3 ML VIAL SQ SCH ×4 (00:42→17:12)
[2019-01-08] MEDS: *HR* Heparin 5,000 UNIT/ML VIAL SQ SCH ×3 (05:55→21:06)
[2019-01-08] MEDS ORDERED: Pantoprazole 40 MG VIAL IVP SCH (06:00)
[2019-01-08] MEDS ORDERED: Ketorolac 30 MG/ML VIAL IVP ONE (06:44)
[2019-01-08] MEDS: BuPROPion XL (24 HR) 150 MG TABLET PO SCH (07:54)
[2019-01-08] MEDS: Metoclopramide 10 MG/10 ML UD.LIQ PO SCH ×4 (07:54→21:06)
[2019-01-08] MEDS: Pregabalin 50 MG CAPSULE PO SCH (07:55)
[2019-01-08] MEDS: (Ezetimibe [Zetia] 10 MG) PO SCH (08:01)
[2019-01-08] MEDS: *HR* LORazepam 1 MG TABLET PO PRN ×2 (08:01→21:06)
[2019-01-08] MEDS: *HR* Promethazine 25 MG/ML VIAL IVP PRN (08:01)
[2019-01-08] MEDS: (Roflumilast [Daliresp] 500 MCG) PO SCH (08:01)
[2019-01-08] MEDS: Nicotine 21 MG PATCH.TD24 TD SCH (09:15)
[2019-01-08] MEDS: Prochlorperazine 10 MG/2 ML VIAL IVP PRN (18:45)
[2019-01-08] MEDS ORDERED: Insulin DETEMIR 100 UNIT/ML X5UNITS SQ SCH (21:00)
[2019-01-08] MEDS: Insulin DETEMIR 100 UNIT/ML X5UNITS SQ SCH (21:06)
[2019-01-08] MEDS: *HR* HYDROcodone/Acet 10/325 mg TABLET PO PRN (21:15)
[2019-01-09 03:27] LABS: Basophils % 0.4 %; Eosinophils # 0.1 K/mcL (0.0-0.6); Eosinophils % 1.8 %; Hemoglobin 11.6 g/dL (11.5-15.4); Immature Granulocytes % 0.4 % (0-4); Lymphocytes % 21.3 %; Mean Corpuscular HGB Conc 32.2 g/dL (31.6-35.5); Mean Corpuscular Hemoglobin 28.3 pg (28.0-33.3); Mean Corpuscular Volume 87.8 fL (83.0-100.0); Mean Platelet Volume 8.5 fL (9.4-12.4); Monocytes # 0.2 K/mcL (0.0-1.3); Monocytes % 4.9 %; Neutrophils # 3.2 K/mcL (1.6-8.9); Platelet Count 148 K/mcL (140-400); Segmented Neutrophils % 71.2 %; White Blood Count 4.5 K/mcL (4.3-11.1)
[2019-01-09 03:46] LABS: BUN/Creatinine Ratio 14 (6-26); Blood Urea Nitrogen 9 mg/dL (8-23); Calcium 8.3 mg/dL (8.6-10.3); Carbon Dioxide 26 mEq/L (23-29); Chloride 108 mEq/L (98-107); Glucose 188 mg/dL (70-105); Magnesium 1.5 mg/dL (1.6-2.6); Osmolality,Calculated 294 (280-300); Potassium 3.5 mEq/L (3.5-5.1); Sodium 140 mEq/L (136-145); eGFR For African Americans > 60 (> 60); eGFR For Non-African Americans > 60 (> 60)
[2019-01-09] MEDS: *HR* Heparin 5,000 UNIT/ML VIAL SQ SCH ×3 (06:06→22:23)
[2019-01-09 06:35] LABS: Estimated Average Glucose 237 mg/dl
[2019-01-09] MEDS: Pregabalin 50 MG CAPSULE PO SCH (09:26)
[2019-01-09] MEDS: Metoclopramide 10 MG/10 ML UD.LIQ PO SCH ×4 (09:26→22:23)
[2019-01-09] MEDS: BuPROPion XL (24 HR) 150 MG TABLET PO SCH (09:26)
[2019-01-09] MEDS: Nicotine 21 MG PATCH.TD24 TD SCH (09:26)
[2019-01-09] MEDS: Insulin LISPRO 300 UNITS/3 ML VIAL SQ SCH ×3 (09:27→17:03)
[2019-01-09] MEDS: (Roflumilast [Daliresp] 500 MCG) PO SCH (09:28)
[2019-01-09] MEDS: (Ezetimibe [Zetia] 10 MG) PO SCH (09:28)
[2019-01-09] MEDS ORDERED: Gadolinium Contrast Agent (WT Based) IV PRN (09:40)
[2019-01-09] MEDS: *HR* LORazepam 1 MG TABLET PO PRN ×2 (10:39→22:23)
[2019-01-09] MEDS: Ipratropium/Albuterol Neb 3 ML IH PRN ×2 (10:50→22:52)
[2019-01-09] MEDS: *HR* HYDROcodone/Acet 10/325 mg TABLET PO PRN ×2 (14:37→22:23)
[2019-01-09] MEDS ORDERED: *HR* LORazepam 2 MG/ML VIAL IVP ONE ×2 (18:50→19:51)
[2019-01-09] MEDS: Insulin DETEMIR 100 UNIT/ML X5UNITS SQ SCH (22:25)
[2019-01-10 04:48] LABS: Basophils % 0.3 %; Eosinophils # 0.1 K/mcL (0.0-0.6); Eosinophils % 1.8 %; Hematocrit 35.1 % (35.3-44.9); Hemoglobin 11.6 g/dL (11.5-15.4); Immature Granulocytes % 0.3 % (0-4); Lymphocytes # 0.8 K/mcL (0.6-4.6); Mean Corpuscular Hemoglobin 28.6 pg (28.0-33.3); Mean Corpuscular Volume 86.7 fL (83.0-100.0); Mean Platelet Volume 8.4 fL (9.4-12.4); Monocytes # 0.2 K/mcL (0.0-1.3); Monocytes % 6.3 %; Neutrophils # 2.7 K/mcL (1.6-8.9); Platelet Count 133 K/mcL (140-400); Red Blood Count 4.05 M/mcL (3.82-4.97); Red Cell Distribution Width 13.8 % (11.5-14.5); Segmented Neutrophils % 70.3 %; White Blood Count 3.8 K/mcL (4.3-11.1)
[2019-01-10 05:05] LABS: BUN/Creatinine Ratio 11 (6-26); Blood Urea Nitrogen 9 mg/dL (8-23); Calcium 8.1 mg/dL (8.6-10.3); Carbon Dioxide 26 mEq/L (23-29); Chloride 106 mEq/L (98-107); Glucose 236 mg/dL (70-105); Magnesium 1.8 mg/dL (1.6-2.6); Osmolality,Calculated 290 (280-300); Potassium 3.4 mEq/L (3.5-5.1); Sodium 137 mEq/L (136-145); eGFR For African Americans > 60 (> 60); eGFR For Non-African Americans > 60 (> 60)
[2019-01-10] MEDS: *HR* Heparin 5,000 UNIT/ML VIAL SQ SCH ×3 (06:50→20:50)
[2019-01-10] MEDS: *HR* LORazepam 1 MG TABLET PO PRN ×3 (06:55→20:55)
[2019-01-10] MEDS: *HR* HYDROcodone/Acet 10/325 mg TABLET PO PRN ×2 (06:56→20:55)
[2019-01-10] MEDS: BuPROPion XL (24 HR) 150 MG TABLET PO SCH (07:53)
[2019-01-10] MEDS: Metoclopramide 10 MG/10 ML UD.LIQ PO SCH ×4 (07:53→20:50)
[2019-01-10] MEDS: Insulin LISPRO 300 UNITS/3 ML VIAL SQ SCH ×3 (07:54→16:52)
[2019-01-10] MEDS: Pregabalin 50 MG CAPSULE PO SCH (07:54)
[2019-01-10] MEDS: Nicotine 21 MG PATCH.TD24 TD SCH (07:54)
[2019-01-10] MEDS: (Roflumilast [Daliresp] 500 MCG) PO SCH (08:07)
[2019-01-10] MEDS: (Ezetimibe [Zetia] 10 MG) PO SCH (08:07)
[2019-01-10] MEDS: Ipratropium/Albuterol Neb 3 ML IH PRN ×2 (08:29→17:23)
[2019-01-10] MEDS: *HR* Promethazine 25 MG/ML VIAL IVP PRN (18:34)
[2019-01-10] MEDS: Prochlorperazine 10 MG/2 ML VIAL IVP PRN (20:49)
[2019-01-10] MEDS: Insulin DETEMIR 100 UNIT/ML X5UNITS SQ SCH (20:51)
[2019-01-11 04:14] LABS: Basophils % 0.2 %; Eosinophils # 0.1 K/mcL (0.0-0.6); Eosinophils % 1.3 %; Hematocrit 35.3 % (35.3-44.9); Hemoglobin 11.6 g/dL (11.5-15.4); Immature Granulocytes % 0.2 % (0-4); Lymphocytes # 0.8 K/mcL (0.6-4.6); Lymphocytes % 17.8 %; Mean Corpuscular HGB Conc 32.9 g/dL (31.6-35.5); Mean Corpuscular Hemoglobin 28.4 pg (28.0-33.3); Mean Corpuscular Volume 86.5 fL (83.0-100.0); Mean Platelet Volume 8.7 fL (9.4-12.4); Monocytes # 0.3 K/mcL (0.0-1.3); Neutrophils # 3.5 K/mcL (1.6-8.9); Platelet Count 166 K/mcL (140-400); Red Blood Count 4.08 M/mcL (3.82-4.97); Red Cell Distribution Width 13.8 % (11.5-14.5); Segmented Neutrophils % 74.5 %; White Blood Count 4.7 K/mcL (4.3-11.1)
[2019-01-11 04:28] LABS: BUN/Creatinine Ratio 9 (6-26); Blood Urea Nitrogen 7 mg/dL (8-23); Calcium 8.3 mg/dL (8.6-10.3); Carbon Dioxide 25 mEq/L (23-29); Chloride 105 mEq/L (98-107); Glucose 336 mg/dL (70-105); Magnesium 1.5 mg/dL (1.6-2.6); Osmolality,Calculated 295 (280-300); Potassium 3.9 mEq/L (3.5-5.1); Sodium 137 mEq/L (136-145); eGFR For African Americans > 60 (> 60); eGFR For Non-African Americans > 60 (> 60)
[2019-01-11] MEDS: Ipratropium/Albuterol Neb 3 ML IH PRN ×4 (04:29→22:15)
[2019-01-11] MEDS: *HR* Heparin 5,000 UNIT/ML VIAL SQ SCH ×3 (06:24→21:00)
[2019-01-11] MEDS: Insulin LISPRO 300 UNITS/3 ML VIAL SQ SCH ×3 (07:58→16:50)
[2019-01-11] MEDS: BuPROPion XL (24 HR) 150 MG TABLET PO SCH (07:59)
[2019-01-11] MEDS: Metoclopramide 10 MG/10 ML UD.LIQ PO SCH ×4 (07:59→21:00)
[2019-01-11] MEDS: Nicotine 21 MG PATCH.TD24 TD SCH (07:59)
[2019-01-11] MEDS: Pregabalin 50 MG CAPSULE PO SCH (08:00)
[2019-01-11] MEDS: Aspirin 81 MG TAB.CHEW PO SCH (08:00)
[2019-01-11] MEDS: Budesonide/Formoterol 160/4.5 1 PUFF INH IH SCH ×2 (10:34→22:16)
[2019-01-11] MEDS: *HR* LORazepam 1 MG TABLET PO PRN ×2 (13:27→21:00)
[2019-01-11] MEDS: *HR* HYDROcodone/Acet 10/325 mg TABLET PO PRN (21:00)
[2019-01-11] MEDS: Magnesium Oxide 400 MG TABLET PO SCH (21:00)
[2019-01-11] MEDS: Insulin DETEMIR 100 UNIT/ML X5UNITS SQ SCH (21:01)
[2019-01-12] MEDS: Ipratropium/Albuterol Neb 3 ML IH PRN (04:05)
[2019-01-12] MEDS: *HR* Heparin 5,000 UNIT/ML VIAL SQ SCH ×2 (05:40→13:49)
[2019-01-12 06:00] LABS: Basophils % 0.4 %; Eosinophils # 0.1 K/mcL (0.0-0.6); Eosinophils % 2.3 %; Immature Granulocytes % 0.6 % (0-4); Lymphocytes # 0.9 K/mcL (0.6-4.6); Lymphocytes % 18.6 %; Mean Corpuscular Hemoglobin 28.1 pg (28.0-33.3); Mean Corpuscular Volume 85.3 fL (83.0-100.0); Mean Platelet Volume 8.3 fL (9.4-12.4); Monocytes # 0.3 K/mcL (0.0-1.3); Neutrophils # 3.5 K/mcL (1.6-8.9); Platelet Count 155 K/mcL (140-400); Red Blood Count 4.69 M/mcL (3.82-4.97); Segmented Neutrophils % 72.1 %; White Blood Count 4.9 K/mcL (4.3-11.1)
[2019-01-12 06:01] LABS: Hemoglobin 13.2 g/dL (11.5-15.4)
[2019-01-12 06:29] LABS: BUN/Creatinine Ratio 6 (6-26); Blood Urea Nitrogen 5 mg/dL (8-23); Calcium 9.1 mg/dL (8.6-10.3); Carbon Dioxide 26 mEq/L (23-29); Chloride 102 mEq/L (98-107); Glucose 192 mg/dL (70-105); Magnesium 1.7 mg/dL (1.6-2.6); Osmolality,Calculated 288 (280-300); Sodium 138 mEq/L (136-145); eGFR For African Americans > 60 (> 60); eGFR For Non-African Americans > 60 (> 60)
[2019-01-12] MEDS: Metoclopramide 10 MG/10 ML UD.LIQ PO SCH ×3 (08:57→17:00)
[2019-01-12] MEDS: BuPROPion XL (24 HR) 150 MG TABLET PO SCH (08:57)
[2019-01-12] MEDS: Pregabalin 50 MG CAPSULE PO SCH (08:58)
[2019-01-12] MEDS: Nicotine 21 MG PATCH.TD24 TD SCH (08:58)
[2019-01-12] MEDS: Magnesium Oxide 400 MG TABLET PO SCH (08:58)
[2019-01-12] MEDS: Aspirin 81 MG TAB.CHEW PO SCH (08:58)
[2019-01-12] MEDS: Insulin LISPRO 300 UNITS/3 ML VIAL SQ SCH ×3 (09:03→17:01)
[2019-01-12] MEDS: Budesonide/Formoterol 160/4.5 1 PUFF INH IH SCH (09:40)
[2019-01-12] MEDS: *HR* LORazepam 1 MG TABLET PO PRN ×2 (10:31→14:00)
[2019-01-12] MEDS: *HR* HYDROcodone/Acet 10/325 mg TABLET PO PRN (10:31)
[2019-01-12] MEDS: Prochlorperazine 10 MG/2 ML VIAL IVP PRN (13:51)
[2019-01-12 14:54] VITALS: BP 166/95
[2019-01-12] MEDS: *HR* Promethazine 25 MG/ML VIAL IVP PRN (15:12)
== END 2019-01-12 19:13 | disposition home health service (06) | DRG 74 ==
LOC: EMEROOARM 17:00 → 3ANU 17:00 → SUATTDRO 22:17 → 3ANU 22:46
PROVIDERS: ADMIT Internal Medicine; ATTEND Pharmacist

== ENCOUNTER 2019-01-21 16:50 | Inpatient (IN) ==
[2019-01-21] MEDS ORDERED: Morphine Sulfate 2 MG/ML SYRINGE IVP ONE (17:07)
[2019-01-21] MEDS ORDERED: *HR* HYDROmorphone (PF) 1 MG/ML SYRINGE IVP ONE ×2 (18:24→20:11)
[2019-01-21 19:23] LABS: Basophils % 0.3 %; Eosinophils # 0.1 K/mcL (0.0-0.6); Eosinophils % 0.9 %; Hematocrit 38.5 % (35.3-44.9); Hemoglobin 13.3 g/dL (11.5-15.4); Immature Granulocytes % 0.3 % (0-4); Lymphocytes # 0.6 K/mcL (0.6-4.6); Lymphocytes % 7.9 %; Mean Corpuscular HGB Conc 34.5 g/dL (31.6-35.5); Mean Corpuscular Hemoglobin 29.3 pg (28.0-33.3); Mean Corpuscular Volume 84.8 fL (83.0-100.0); Mean Platelet Volume 8.7 fL (9.4-12.4); Monocytes # 0.4 K/mcL (0.0-1.3); Neutrophils # 6.6 K/mcL (1.6-8.9); Platelet Count 192 K/mcL (140-400); Red Blood Count 4.54 M/mcL (3.82-4.97); Red Cell Distribution Width 13.9 % (11.5-14.5); Segmented Neutrophils % 85.6 %; White Blood Count 7.8 K/mcL (4.3-11.1)
[2019-01-21 19:37] LABS: BUN/Creatinine Ratio 13 (6-26); Blood Urea Nitrogen 11 mg/dL (8-23); Calcium 9.3 mg/dL (8.6-10.3); Carbon Dioxide 26 mEq/L (23-29); Chloride 100 mEq/L (98-107); Glucose 358 mg/dL (70-105); Osmolality,Calculated 296 (280-300); Potassium 4.2 mEq/L (3.5-5.1); Sodium 136 mEq/L (136-145); eGFR For African Americans > 60 (> 60); eGFR For Non-African Americans > 60 (> 60)
[2019-01-21] MEDS ORDERED: tiZANidine 4 MG TABLET PO ONE (22:59)
[2019-01-22] MEDS ORDERED: traMADol 50 MG TABLET PO PRN (00:50)
[2019-01-22] MEDS ORDERED: Acetaminophen 325 MG TABLET PO PRN (00:50)
[2019-01-22] MEDS ORDERED: Naloxone 0.4 MG/ML INJ IVP PRN (00:50)
[2019-01-22] MEDS ORDERED: D5% in Water 1,000 ML IVC PRN (00:54)
[2019-01-22] MEDS ORDERED: Dextrose Gel 15 GM/37.5 ML TUBE PO PRN ×2 (00:54)
[2019-01-22] MEDS ORDERED: *HR* Dextrose 50 % in Water (Syg) 50 ML SYRINGE IVP PRN (00:54)
[2019-01-22] MEDS: *HR* OxyCODONE Immed Rel 5 MG TABLET PO PRN ×2 (01:14→08:07)
[2019-01-22] MEDS ORDERED: *HR* HYDROmorphone 2 MG TABLET PO ONE (03:31)
[2019-01-22] MEDS: Nicotine 21 MG PATCH.TD24 TD SCH (03:50)
[2019-01-22 04:20] LABS: Hematocrit 37.9 % (35.3-44.9); Hemoglobin 12.5 g/dL (11.5-15.4); Mean Corpuscular Hemoglobin 28.8 pg (28.0-33.3); Mean Corpuscular Volume 87.3 fL (83.0-100.0); Mean Platelet Volume 8.7 fL (9.4-12.4); Platelet Count 184 K/mcL (140-400); Red Blood Count 4.34 M/mcL (3.82-4.97); Red Cell Distribution Width 13.8 % (11.5-14.5); White Blood Count 7.2 K/mcL (4.3-11.1)
[2019-01-22 04:35] LABS: BUN/Creatinine Ratio 14 (6-26); Blood Urea Nitrogen 11 mg/dL (8-23); Carbon Dioxide 26 mEq/L (23-29); Chloride 98 mEq/L (98-107); Chol/HDL Ratio 5.8 (0-4.9); Cholesterol 186 mg/dL (< 200); Glucose 353 mg/dL (70-105); HDL Cholesterol 32 mg/dL (40-59); LDL Cholesterol,Calculated 117 mg/dL (0-99); Magnesium 1.5 mg/dL (1.6-2.6); Osmolality,Calculated 290 (280-300); Potassium 4.2 mEq/L (3.5-5.1); Sodium 133 mEq/L (136-145); Triglycerides 184 mg/dL (< 150); eGFR For African Americans > 60 (> 60); eGFR For Non-African Americans > 60 (> 60)
[2019-01-22 04:51] LABS: Thyroid Stimulating Hormone 0.548 mcIU/mL (0.340-5.600)
[2019-01-22] MEDS ORDERED: *HR* HYDROmorphone (PF) 1 MG/ML SYRINGE IVP ONE (05:08)
[2019-01-22] MEDS: Ondansetron 4 MG/2 ML VIAL IVP PRN ×2 (05:25→17:16)
[2019-01-22] MEDS: Insulin LISPRO 300 UNITS/3 ML VIAL SQ SCH ×6 (06:42→17:31)
[2019-01-22] MEDS: *HR* Promethazine 25 MG/ML VIAL IVP PRN (06:42)
[2019-01-22 08:58] LABS: Estimated Average Glucose 226 mg/dl
[2019-01-22] MEDS ORDERED: *HR* FentaNYL (PF) 100 MCG/2 ML VIAL IVP PRN ×2 (11:15→14:41)
[2019-01-22] MEDS ORDERED: *HR* OxyCODONE Immed Rel 5 MG TABLET PO ONE (12:43)
[2019-01-22] MEDS ORDERED: *HR* FentaNYL (PF) 100 MCG/2 ML VIAL IVP ONE ×2 (13:35→14:40)
[2019-01-22] MEDS ORDERED: Ketorolac 30 MG/ML VIAL IM PRN (19:01)
[2019-01-22] MEDS: *HR* LORazepam 0.5 MG TABLET PO PRN (19:01)
[2019-01-22] MEDS: Morphine PCA 30 MG/ 30 ML 30 ML PCA.VIAL IVC PRN (20:14)
[2019-01-22] MEDS ORDERED: Insulin LISPRO 300 UNITS/3 ML VIAL SQ SCH (21:00)
[2019-01-22] MEDS ORDERED: 0.9 % Sodium Chloride 1,000 ML IV SCH (22:15)
[2019-01-23] MEDS: Insulin LISPRO 300 UNITS/3 ML VIAL SQ SCH ×5 (01:11→18:55)
[2019-01-23] MEDS: *HR* LORazepam 0.5 MG TABLET PO PRN ×2 (03:22→15:33)
[2019-01-23] MEDS: Nicotine 21 MG PATCH.TD24 TD SCH (03:47)
[2019-01-23] MEDS: *HR* Promethazine 25 MG/ML VIAL IVP PRN (03:47)
[2019-01-23 05:01] LABS: Hematocrit 39.5 % (35.3-44.9); Hemoglobin 13.2 g/dL (11.5-15.4); Mean Corpuscular HGB Conc 33.4 g/dL (31.6-35.5); Mean Corpuscular Hemoglobin 29.3 pg (28.0-33.3); Mean Corpuscular Volume 87.8 fL (83.0-100.0); Mean Platelet Volume 8.9 fL (9.4-12.4); Platelet Count 208 K/mcL (140-400); Red Cell Distribution Width 13.9 % (11.5-14.5); White Blood Count 5.8 K/mcL (4.3-11.1)
[2019-01-23 05:20] LABS: BUN/Creatinine Ratio 13 (6-26); Blood Urea Nitrogen 9 mg/dL (8-23); Carbon Dioxide 28 mEq/L (23-29); Chloride 98 mEq/L (98-107); Glucose 250 mg/dL (70-105); Osmolality,Calculated 285 (280-300); Potassium 4.1 mEq/L (3.5-5.1); Sodium 134 mEq/L (136-145); eGFR For African Americans > 60 (> 60); eGFR For Non-African Americans > 60 (> 60)
[2019-01-23] MEDS: Morphine PCA 30 MG/ 30 ML 30 ML PCA.VIAL IVC PRN (10:07)
[2019-01-23] MEDS ORDERED: Sucralfate 1 GM TABLET PO PRN ×2 (10:49→20:50)
[2019-01-23] MEDS ORDERED: Budesonide/Formoterol 160/4.5 1 PUFF INH IH SCH ×2 (11:00→22:00)
[2019-01-23] MEDS ORDERED: NON-FORMULARY MEDICATION 1 EACH EACH (Roflumilast [Daliresp] 500 MCG) PO SCH (11:00)
[2019-01-23] MEDS ORDERED: Pregabalin 50 MG CAPSULE PO SCH (11:00)
[2019-01-23] MEDS ORDERED: Aspirin 81 MG TAB.CHEW PO SCH (11:00)
[2019-01-23] MEDS ORDERED: NON-FORMULARY MEDICATION 1 EACH EACH (Bupropion Hcl [Wellbutrin Xl] 300 MG) PO SCH (11:00)
[2019-01-23] MEDS ORDERED: NON-FORMULARY MEDICATION 1 EACH EACH (Ezetimibe [Zetia] 10 MG) PO SCH (11:00)
[2019-01-23] MEDS ORDERED: Magnesium Oxide 400 MG TABLET PO SCH ×2 (11:00→21:00)
[2019-01-23] MEDS ORDERED: Nitroglycerin 0.4 MG TAB.SUBL SL PRN ×2 (11:19→20:50)
[2019-01-23] MEDS ORDERED: GuaiFENesin/Codeine Oral Soln 5 ML UDC PO PRN (11:19)
[2019-01-23] MEDS ORDERED: *HR* LORazepam 1 MG TABLET PO PRN (11:19)
[2019-01-23] MEDS ORDERED: Lidocaine -MPF 2% 2 ML VIAL ONE (15:58)
[2019-01-23] MEDS ORDERED: *HR* Midazolam HCl 2 MG/2 ML VIAL ONE (15:58)
[2019-01-23] MEDS ORDERED: *HR* FentaNYL (PF) 100 MCG/2 ML VIAL ONE (15:58)
[2019-01-23] MEDS ORDERED: Dexamethasone 4 MG/ML VIAL ONE (15:58)
[2019-01-23] MEDS ORDERED: *HR* Propofol 200 MG/20 ML VIAL IVP ONE (15:58)
[2019-01-23] MEDS ORDERED: Ondansetron 4 MG/2 ML VIAL ONE (15:58)
[2019-01-23] MEDS ORDERED: Ipratropium/Albuterol Neb 3 ML IH SCH (16:00)
[2019-01-23] MEDS ORDERED: Lidocaine -MPF 4% 5 ML AMPUL ONE (16:34)
[2019-01-23] MEDS ORDERED: ceFAZolin 2,000 MG in Water for inj. (sterile) 20 ML IVP ONE (16:34)
[2019-01-23] MEDS ORDERED: Acetaminophen IV 1,000 MG/100 ML INFUS..BTL ONE (16:51)
[2019-01-23] MEDS ORDERED: Bupivacaine/EPI 1:200k 0.5%PF 10 ML VIAL ONE (16:54)
[2019-01-23] MEDS ORDERED: *HR* PHENYLEPHRINE 1,000 MCG/10 ML SYRINGE IVP ONE (17:11)
[2019-01-23] MEDS ORDERED: Lacri-Lube 3.5 GM TUBE ONE (17:16)
[2019-01-23] MEDS ORDERED: *HR* HYDROMORPHONE 2 MG/ML VIAL ONE (17:29)
[2019-01-23] MEDS ORDERED: *HR* Promethazine 25 MG/ML VIAL IVP PRN ×3 (19:04→20:50)
[2019-01-23] MEDS ORDERED: *HR* OxyCODONE Immed Rel 5 MG TABLET PO PRN ×2 (19:04→20:50)
[2019-01-23] MEDS ORDERED: *HR* Labetalol 20 MG/4 ML SYRINGE IVP PRN ×2 (19:04→20:50)
[2019-01-23] MEDS ORDERED: Ondansetron 4 MG/2 ML VIAL IVP ONE ×2 (19:04→20:50)
[2019-01-23] MEDS: *HR* HYDROmorphone (PF) 1 MG/ML SYRINGE IVP PRN ×4 (19:21→19:50)
[2019-01-23] MEDS ORDERED: *HR* HYDROmorphone (PF) 1 MG/ML SYRINGE IVP PRN (20:50)
[2019-01-23] MEDS ORDERED: 0.9 % Sodium Chloride 1,000 ML IV SCH (20:50)
[2019-01-23] MEDS ORDERED: Dextrose Gel 15 GM/37.5 ML TUBE PO PRN ×2 (20:50)
[2019-01-23] MEDS ORDERED: Naloxone 0.4 MG/ML INJ IVP PRN (20:50)
[2019-01-23] MEDS ORDERED: Ketorolac 30 MG/ML VIAL IM PRN (20:50)
[2019-01-23] MEDS ORDERED: Morphine PCA 30 MG/ 30 ML 30 ML PCA.VIAL IVC PRN (20:50)
[2019-01-23] MEDS ORDERED: Acetaminophen 325 MG TABLET PO PRN (20:50)
[2019-01-23] MEDS ORDERED: D5% in Water 1,000 ML IVC PRN (20:50)
[2019-01-23] MEDS ORDERED: *HR* Dextrose 50 % in Water (Syg) 50 ML SYRINGE IVP PRN (20:50)
[2019-01-23] MEDS ORDERED: *HR* LORazepam 0.5 MG TABLET PO PRN (20:50)
[2019-01-23] MEDS ORDERED: Insulin DETEMIR 100 UNIT/ML X5UNITS SQ SCH ×2 (21:00)
[2019-01-23] MEDS ORDERED: *HR* LORazepam 2 MG/ML VIAL IVP ONE (21:28)
[2019-01-23] MEDS: Ipratropium/Albuterol Neb 3 ML IH SCH (22:49)
[2019-01-24] MEDS: Insulin LISPRO 300 UNITS/3 ML VIAL SQ SCH ×2 (00:50→05:14)
[2019-01-24 01:51] VITALS: BP 126/80
[2019-01-24] MEDS ORDERED: Nicotine 21 MG PATCH.TD24 TD SCH (02:34)
[2019-01-24] MEDS ORDERED: Ketorolac 30 MG/ML VIAL IVP PRN (02:36)
[2019-01-24] MEDS ORDERED: *HR* LORazepam 2 MG/ML VIAL IVP STA (02:58)
[2019-01-24] MEDS: Ipratropium/Albuterol Neb 3 ML IH SCH (03:36)
[2019-01-24 04:04] LABS: Hematocrit 36.4 % (35.3-44.9); Hemoglobin 12.1 g/dL (11.5-15.4); Mean Corpuscular HGB Conc 33.2 g/dL (31.6-35.5); Mean Corpuscular Volume 87.3 fL (83.0-100.0); Mean Platelet Volume 8.6 fL (9.4-12.4); Platelet Count 182 K/mcL (140-400); Red Blood Count 4.17 M/mcL (3.82-4.97); Red Cell Distribution Width 13.5 % (11.5-14.5); White Blood Count 7.3 K/mcL (4.3-11.1)
[2019-01-24 04:20] LABS: BUN/Creatinine Ratio 16 (6-26); Blood Urea Nitrogen 12 mg/dL (8-23); Carbon Dioxide 27 mEq/L (23-29); Chloride 98 mEq/L (98-107); Glucose 329 mg/dL (70-105); Osmolality,Calculated 293 (280-300); Potassium 4.5 mEq/L (3.5-5.1); Sodium 135 mEq/L (136-145); eGFR For African Americans > 60 (> 60); eGFR For Non-African Americans > 60 (> 60)
[2019-01-24] MEDS ORDERED: Ondansetron 4 MG/2 ML VIAL IVP PRN (06:00)
[2019-01-24] MEDS ORDERED: Pregabalin 50 MG CAPSULE PO SCH (09:00)
[2019-01-24] MEDS ORDERED: Aspirin 81 MG TAB.CHEW PO SCH (09:00)
== END 2019-01-24 10:20 | DRG 511 ==
LOC: 3NENU 16:50 → EMEROOARM 16:50 → 3NENU 22:36 → SUATTDRO 01-22 03:38
PROVIDERS: ADMIT Internal Medicine; ATTEND Internal Medicine

== ENCOUNTER 2019-02-08 17:06 | Inpatient (IN) ==
[2019-02-08] MEDS ORDERED: Morphine Sulfate 2 MG/ML SYRINGE IVP ONE (17:43)
[2019-02-08] MEDS ORDERED: Ondansetron 4 MG/2 ML VIAL IVP STA (17:44)
[2019-02-08] MEDS ORDERED: Ketorolac 15 MG/ML VIAL IVP ONE (17:44)
[2019-02-08] MEDS ORDERED: 0.9 % Sodium Chloride 1,000 ML IVC ONE (18:30)
[2019-02-08 18:55] LABS: Basophils % 0.5 %; Eosinophils # 0.1 K/mcL (0.0-0.6); Eosinophils % 1.3 %; Hematocrit 37.3 % (35.3-44.9); Hemoglobin 12.8 g/dL (11.5-15.4); Immature Granulocytes % 0.3 % (0-4); Mean Corpuscular HGB Conc 34.3 g/dL (31.6-35.5); Mean Corpuscular Hemoglobin 29.1 pg (28.0-33.3); Mean Corpuscular Volume 84.8 fL (83.0-100.0); Mean Platelet Volume 8.8 fL (9.4-12.4); Monocytes # 0.4 K/mcL (0.0-1.3); Monocytes % 6.6 %; Neutrophils # 4.8 K/mcL (1.6-8.9); Platelet Count 203 K/mcL (140-400); Red Cell Distribution Width 13.5 % (11.5-14.5); Segmented Neutrophils % 76.3 %; White Blood Count 6.3 K/mcL (4.3-11.1)
[2019-02-08 19:17] LABS: Alanine Aminotransferase 10 Units/L (7-52); Albumin 3.9 g/dL (3.5-5.7); Albumin/Globulin Ratio 1.4 (1.1-2.2); Alkaline Phosphatase 90 Units/L (34-104); Aspartate Amino Transferase 10 Units/L (13-39); BUN/Creatinine Ratio 13 (6-26); Bilirubin,Direct 0.1 mg/dL (0.0-0.2); Bilirubin,Indirect 0.3 mg/dL (0.0-1.0); Bilirubin,Total 0.4 mg/dL (0.3-1.0); Blood Urea Nitrogen 9 mg/dL (8-23); Calcium 9.2 mg/dL (8.6-10.3); Carbon Dioxide 24 mEq/L (23-29); Chloride 99 mEq/L (98-107); Globulin 2.7 g/dL (2.4-3.5); Glucose 279 mg/dL (70-105); Lipase 7 Units/L (11-82); Osmolality,Calculated 291 (280-300); Potassium 3.4 mEq/L (3.5-5.1); Sodium 136 mEq/L (136-145); Total Protein 6.6 g/dL (6.4-8.9); eGFR For African Americans > 60 (> 60); eGFR For Non-African Americans > 60 (> 60)
[2019-02-08 20:03] LABS: Troponin I < 0.03 ng/mL (< 0.04)
[2019-02-09] MEDS ORDERED: Naloxone 0.4 MG/ML INJ IVP PRN (00:07)
[2019-02-09] MEDS ORDERED: Ondansetron 4 MG/2 ML VIAL IVP PRN (00:07)
[2019-02-09] MEDS ORDERED: D5% in Water 1,000 ML IVC PRN (00:11)
[2019-02-09] MEDS ORDERED: *HR* Dextrose 50 % in Water (Syg) 50 ML SYRINGE IVP PRN (00:11)
[2019-02-09] MEDS ORDERED: Dextrose Gel 15 GM/37.5 ML TUBE PO PRN ×2 (00:11)
[2019-02-09] MEDS ORDERED: Ondansetron ODT 4 MG TAB.RAPDIS SL PRN (00:13)
[2019-02-09] MEDS ORDERED: Acetaminophen 325 MG TABLET PO PRN (00:13)
[2019-02-09] MEDS: Insulin DETEMIR 100 UNIT/ML X5UNITS SQ SCH ×2 (03:33→21:01)
[2019-02-09] MEDS: *HR* Heparin 5,000 UNIT/ML VIAL SQ SCH ×3 (07:38→21:01)
[2019-02-09] MEDS: Budesonide/Formoterol 160/4.5 1 PUFF INH IH SCH ×2 (08:38→22:55)
[2019-02-09] MEDS: Ipratropium/Albuterol Neb 3 ML IH SCH ×3 (08:38→22:55)
[2019-02-09] MEDS ORDERED: (Roflumilast [Daliresp] 500 MCG) PO SCH (09:00)
[2019-02-09] MEDS ORDERED: (Ezetimibe [Zetia] 10 MG) PO SCH (09:00)
[2019-02-09] MEDS: Insulin LISPRO 300 UNITS/3 ML VIAL SQ SCH ×3 (09:02→18:22)
[2019-02-09] MEDS: Metoclopramide 10 MG/10 ML UD.LIQ PO SCH ×4 (09:09→21:00)
[2019-02-09] MEDS: BuPROPion XL (24 HR) 150 MG TABLET PO SCH (09:09)
[2019-02-09] MEDS: Aspirin 81 MG TAB.CHEW PO SCH (09:10)
[2019-02-09] MEDS: Magnesium Oxide 400 MG TABLET PO SCH ×2 (09:10→21:00)
[2019-02-09] MEDS: Nicotine 21 MG PATCH.TD24 TD SCH (10:40)
[2019-02-09] MEDS ORDERED: *HR* LORazepam 1 MG TABLET PO PRN (13:08)
[2019-02-09] MEDS ORDERED: Methocarbamol 500 MG TABLET PO PRN (15:54)
[2019-02-09] MEDS ORDERED: Gadolinium Contrast Agent (WT Based) IV PRN (16:07)
[2019-02-09] MEDS ORDERED: Isovue-370 500 ML BOTTLE IVP ONE (16:51)
[2019-02-09] MEDS ORDERED: *HR* LORazepam 2 MG/ML VIAL IVP ONE (17:00)
[2019-02-09] MEDS: *HR* LORazepam 1 MG TABLET PO SCH ×2 (17:28→21:04)
[2019-02-09] MEDS: *HR* OxyCODONE Immed Rel 5 MG TABLET PO PRN (18:21)
[2019-02-09] MEDS: GuaiFENesin Liq 200 MG/10 ML UDC PO PRN (22:20)
[2019-02-10] MEDS: Ipratropium/Albuterol Neb 3 ML IH SCH ×4 (03:50→21:08)
[2019-02-10 04:38] LABS: Thyroid Stimulating Hormone 0.235 mcIU/mL (0.340-5.600)
[2019-02-10] MEDS: *HR* LORazepam 1 MG TABLET PO SCH ×4 (05:19→22:24)
[2019-02-10] MEDS: *HR* Heparin 5,000 UNIT/ML VIAL SQ SCH ×3 (05:19→22:24)
[2019-02-10] MEDS: Insulin LISPRO 300 UNITS/3 ML VIAL SQ SCH ×3 (07:30→17:01)
[2019-02-10] MEDS: Metoclopramide 10 MG/10 ML UD.LIQ PO SCH ×4 (08:03→22:24)
[2019-02-10] MEDS: Nicotine 21 MG PATCH.TD24 TD SCH (08:04)
[2019-02-10] MEDS: Aspirin 81 MG TAB.CHEW PO SCH (08:04)
[2019-02-10] MEDS: Magnesium Oxide 400 MG TABLET PO SCH ×2 (08:04→20:07)
[2019-02-10] MEDS: BuPROPion XL (24 HR) 150 MG TABLET PO SCH (08:05)
[2019-02-10] MEDS ORDERED: *HR* LORazepam 2 MG/ML VIAL IVP ONE (08:35)
[2019-02-10 08:53] LABS: BUN/Creatinine Ratio 8 (6-26); Blood Urea Nitrogen 4 mg/dL (8-23); Calcium 9.2 mg/dL (8.6-10.3); Carbon Dioxide 27 mEq/L (23-29); Chloride 102 mEq/L (98-107); Glucose 203 mg/dL (70-105); Osmolality,Calculated 291 (280-300); Potassium 3.4 mEq/L (3.5-5.1); Sodium 139 mEq/L (136-145); eGFR For African Americans > 60 (> 60); eGFR For Non-African Americans > 60 (> 60)
[2019-02-10] MEDS ORDERED: Gadolinium Contrast Agent (WT Based) IV PRN (10:32)
[2019-02-10] MEDS: Budesonide/Formoterol 160/4.5 1 PUFF INH IH SCH ×2 (10:35→21:08)
[2019-02-10 18:49] LABS: POC eGFR > 60 (> 60)
[2019-02-10 19:43] LABS: eGFR For African Americans > 60 (> 60); eGFR For Non-African Americans > 60 (> 60)
[2019-02-10] MEDS: Insulin DETEMIR 100 UNIT/ML X5UNITS SQ SCH (20:07)
[2019-02-10] MEDS: GuaiFENesin Liq 200 MG/10 ML UDC PO PRN (20:07)
[2019-02-10] MEDS: *HR* OxyCODONE Immed Rel 5 MG TABLET PO PRN (20:10)
[2019-02-11] MEDS: Ipratropium/Albuterol Neb 3 ML IH SCH ×4 (03:47→22:38)
[2019-02-11] MEDS: *HR* LORazepam 1 MG TABLET PO SCH ×4 (05:11→23:24)
[2019-02-11] MEDS: *HR* Heparin 5,000 UNIT/ML VIAL SQ SCH ×3 (05:11→21:14)
[2019-02-11 05:55] LABS: BUN/Creatinine Ratio 11 (6-26); Blood Urea Nitrogen 6 mg/dL (8-23); Carbon Dioxide 28 mEq/L (23-29); Chloride 103 mEq/L (98-107); Glucose 178 mg/dL (70-105); Osmolality,Calculated 294 (280-300); Potassium 3.3 mEq/L (3.5-5.1); Sodium 141 mEq/L (136-145); eGFR For African Americans > 60 (> 60); eGFR For Non-African Americans > 60 (> 60)
[2019-02-11] MEDS: Insulin LISPRO 300 UNITS/3 ML VIAL SQ SCH ×3 (07:34→16:43)
[2019-02-11] MEDS: Nicotine 21 MG PATCH.TD24 TD SCH (07:35)
[2019-02-11] MEDS: Metoclopramide 10 MG/10 ML UD.LIQ PO SCH ×4 (07:35→21:14)
[2019-02-11] MEDS: Aspirin 81 MG TAB.CHEW PO SCH (07:36)
[2019-02-11] MEDS: Magnesium Oxide 400 MG TABLET PO SCH ×2 (07:37→21:14)
[2019-02-11] MEDS: BuPROPion XL (24 HR) 150 MG TABLET PO SCH (07:38)
[2019-02-11] MEDS ORDERED: dexAMETHasone 4 MG TABLET PO SCH (09:00)
[2019-02-11] MEDS: Budesonide/Formoterol 160/4.5 1 PUFF INH IH SCH ×2 (10:54→22:39)
[2019-02-11] MEDS: 0.9 % Sodium Chloride 1,000 ML IVC SCH (13:10)
[2019-02-11] MEDS ORDERED: *HR* Propofol 200 MG/20 ML VIAL IVP ONE (13:54)
[2019-02-11] MEDS: GuaiFENesin Liq 200 MG/10 ML UDC PO PRN (16:48)
[2019-02-11] MEDS: Insulin DETEMIR 100 UNIT/ML X5UNITS SQ SCH (21:17)
[2019-02-12] MEDS: Ipratropium/Albuterol Neb 3 ML IH SCH ×4 (03:40→21:37)
[2019-02-12 04:47] LABS: Magnesium 1.3 mg/dL (1.6-2.6); Phosphorous 3.2 mg/dL (2.7-4.5)
[2019-02-12 04:48] LABS: BUN/Creatinine Ratio 13 (6-26); Blood Urea Nitrogen 7 mg/dL (8-23); Calcium 8.8 mg/dL (8.6-10.3); Carbon Dioxide 27 mEq/L (23-29); Chloride 101 mEq/L (98-107); Glucose 293 mg/dL (70-105); Osmolality,Calculated 297 (280-300); Potassium 3.2 mEq/L (3.5-5.1); Sodium 139 mEq/L (136-145); eGFR For African Americans > 60 (> 60); eGFR For Non-African Americans > 60 (> 60)
[2019-02-12] MEDS: *HR* Heparin 5,000 UNIT/ML VIAL SQ SCH ×2 (05:17→13:13)
[2019-02-12] MEDS: *HR* LORazepam 1 MG TABLET PO SCH ×4 (05:17→22:00)
[2019-02-12] MEDS: Insulin LISPRO 300 UNITS/3 ML VIAL SQ SCH ×3 (08:57→16:54)
[2019-02-12] MEDS: Magnesium Oxide 400 MG TABLET PO SCH ×2 (08:58→21:02)
[2019-02-12] MEDS: Aspirin 81 MG TAB.CHEW PO SCH (08:58)
[2019-02-12] MEDS: Metoclopramide 10 MG/10 ML UD.LIQ PO SCH ×4 (08:58→21:03)
[2019-02-12] MEDS: BuPROPion XL (24 HR) 150 MG TABLET PO SCH (08:58)
[2019-02-12] MEDS: dexAMETHasone 4 MG TABLET PO SCH ×2 (08:58→21:03)
[2019-02-12] MEDS: Nicotine 21 MG PATCH.TD24 TD SCH (08:59)
[2019-02-12] MEDS: Budesonide/Formoterol 160/4.5 1 PUFF INH IH SCH ×2 (10:22→21:37)
[2019-02-12] MEDS: Sucralfate 1 GM TABLET PO SCH (16:53)
[2019-02-12] MEDS: Insulin DETEMIR 100 UNIT/ML X5UNITS SQ SCH (21:03)
[2019-02-12] MEDS: *HR* OxyCODONE Immed Rel 5 MG TABLET PO PRN (21:06)
[2019-02-12] MEDS: GuaiFENesin Liq 200 MG/10 ML UDC PO PRN (21:12)
[2019-02-13] MEDS: Ipratropium/Albuterol Neb 3 ML IH SCH ×4 (03:58→22:21)
[2019-02-13] MEDS: *HR* LORazepam 1 MG TABLET PO SCH ×3 (05:07→17:08)
[2019-02-13 05:51] LABS: BUN/Creatinine Ratio 12 (6-26); Blood Urea Nitrogen 6 mg/dL (8-23); Calcium 9.1 mg/dL (8.6-10.3); Carbon Dioxide 27 mEq/L (23-29); Chloride 100 mEq/L (98-107); Glucose 283 mg/dL (70-105); Osmolality,Calculated 294 (280-300); Sodium 138 mEq/L (136-145); eGFR For African Americans > 60 (> 60); eGFR For Non-African Americans > 60 (> 60)
[2019-02-13] MEDS ORDERED: Lidocaine -MPF 2% 2 ML VIAL ONE (08:39)
[2019-02-13] MEDS ORDERED: *HR* Propofol 200 MG/20 ML VIAL IVP ONE (08:40)
[2019-02-13] MEDS: GuaiFENesin Liq 200 MG/10 ML UDC PO PRN ×2 (09:55→21:29)
[2019-02-13] MEDS: Metoclopramide 10 MG/10 ML UD.LIQ PO SCH ×4 (09:56→21:16)
[2019-02-13] MEDS: Aspirin 81 MG TAB.CHEW PO SCH (09:57)
[2019-02-13] MEDS: Sucralfate 1 GM TABLET PO SCH ×2 (09:57→17:08)
[2019-02-13] MEDS: BuPROPion XL (24 HR) 150 MG TABLET PO SCH (09:57)
[2019-02-13] MEDS: dexAMETHasone 4 MG TABLET PO SCH ×2 (09:58→21:17)
[2019-02-13] MEDS: Magnesium Oxide 400 MG TABLET PO SCH ×2 (09:58→21:16)
[2019-02-13] MEDS: Nicotine 21 MG PATCH.TD24 TD SCH (09:58)
[2019-02-13] MEDS: *HR* OxyCODONE Immed Rel 5 MG TABLET PO PRN ×3 (10:02→21:29)
[2019-02-13] MEDS: Insulin DETEMIR 100 UNIT/ML X5UNITS SQ SCH ×2 (10:02→21:29)
[2019-02-13] MEDS: Insulin LISPRO 300 UNITS/3 ML VIAL SQ SCH ×3 (10:02→17:12)
[2019-02-13] MEDS: Budesonide/Formoterol 160/4.5 1 PUFF INH IH SCH ×2 (10:47→22:21)
[2019-02-13] MEDS ORDERED: *HR* HYDROcodone/Acet 5/325 mg TABLET PO ONE (13:40)
[2019-02-13] MEDS: *HR* Heparin 5,000 UNIT/ML VIAL SQ SCH (21:16)
[2019-02-13] MEDS: Mirtazapine 15 MG TABLET PO SCH (21:16)
[2019-02-14] MEDS: *HR* LORazepam 1 MG TABLET PO SCH ×5 (00:42→21:46)
[2019-02-14] MEDS: Ipratropium/Albuterol Neb 3 ML IH SCH ×4 (04:27→22:10)
[2019-02-14] MEDS: *HR* Heparin 5,000 UNIT/ML VIAL SQ SCH ×3 (05:49→21:47)
[2019-02-14 06:14] LABS: Basophils % 0.2 %; Eosinophils % 0.6 %; Hematocrit 36.7 % (35.3-44.9); Hemoglobin 12.4 g/dL (11.5-15.4); Immature Granulocytes % 0.4 % (0-4); Lymphocytes # 0.6 K/mcL (0.6-4.6); Lymphocytes % 11.8 %; Mean Corpuscular HGB Conc 33.8 g/dL (31.6-35.5); Mean Corpuscular Hemoglobin 29.2 pg (28.0-33.3); Mean Corpuscular Volume 86.6 fL (83.0-100.0); Mean Platelet Volume 9.1 fL (9.4-12.4); Monocytes # 0.3 K/mcL (0.0-1.3); Monocytes % 5.8 %; Neutrophils # 4.3 K/mcL (1.6-8.9); Platelet Count 171 K/mcL (140-400); Red Blood Count 4.24 M/mcL (3.82-4.97); Red Cell Distribution Width 13.2 % (11.5-14.5); Segmented Neutrophils % 81.2 %; White Blood Count 5.3 K/mcL (4.3-11.1)
[2019-02-14 06:34] LABS: BUN/Creatinine Ratio 11 (6-26); Blood Urea Nitrogen 6 mg/dL (8-23); Calcium 9.3 mg/dL (8.6-10.3); Carbon Dioxide 28 mEq/L (23-29); Chloride 99 mEq/L (98-107); Glucose 251 mg/dL (70-105); Magnesium 1.6 mg/dL (1.6-2.6); Osmolality,Calculated 290 (280-300); Phosphorous 3.4 mg/dL (2.7-4.5); Potassium 3.9 mEq/L (3.5-5.1); Sodium 137 mEq/L (136-145); eGFR For African Americans > 60 (> 60); eGFR For Non-African Americans > 60 (> 60)
[2019-02-14] MEDS: BuPROPion XL (24 HR) 150 MG TABLET PO SCH (09:05)
[2019-02-14] MEDS: Sucralfate 1 GM TABLET PO SCH ×2 (09:05→16:45)
[2019-02-14] MEDS: Aspirin 81 MG TAB.CHEW PO SCH (09:05)
[2019-02-14] MEDS: Metoclopramide 10 MG/10 ML UD.LIQ PO SCH ×4 (09:05→21:46)
[2019-02-14] MEDS: Nicotine 21 MG PATCH.TD24 TD SCH (09:06)
[2019-02-14] MEDS: Magnesium Oxide 400 MG TABLET PO SCH ×2 (09:06→21:46)
[2019-02-14] MEDS: dexAMETHasone 4 MG TABLET PO SCH ×2 (09:06→21:46)
[2019-02-14] MEDS: *HR* OxyCODONE Immed Rel 5 MG TABLET PO PRN (09:06)
[2019-02-14] MEDS: Insulin LISPRO 300 UNITS/3 ML VIAL SQ SCH ×3 (09:07→18:26)
[2019-02-14] MEDS: Insulin DETEMIR 100 UNIT/ML X5UNITS SQ SCH ×2 (09:28→21:47)
[2019-02-14] MEDS: Budesonide/Formoterol 160/4.5 1 PUFF INH IH SCH ×2 (10:11→22:10)
[2019-02-14] MEDS ORDERED: Sennosides/Docusate Sodium TABLET PO PRN (10:55)
[2019-02-14] MEDS: Mirtazapine 15 MG TABLET PO SCH (21:47)
[2019-02-15] MEDS: 0.9 % Sodium Chloride 1,000 ML IVC SCH (00:17)
[2019-02-15] MEDS: *HR* OxyCODONE Immed Rel 5 MG TABLET PO PRN (02:35)
[2019-02-15] MEDS: Ipratropium/Albuterol Neb 3 ML IH SCH ×3 (04:27→15:29)
[2019-02-15] MEDS: *HR* Heparin 5,000 UNIT/ML VIAL SQ SCH ×2 (05:35→14:20)
[2019-02-15] MEDS: *HR* LORazepam 1 MG TABLET PO SCH ×2 (05:35→10:55)
[2019-02-15] MEDS: Insulin LISPRO 300 UNITS/3 ML VIAL SQ SCH (08:01)
[2019-02-15] MEDS: dexAMETHasone 4 MG TABLET PO SCH (08:02)
[2019-02-15] MEDS: Insulin DETEMIR 100 UNIT/ML X5UNITS SQ SCH (08:02)
[2019-02-15] MEDS: Aspirin 81 MG TAB.CHEW PO SCH (08:02)
[2019-02-15] MEDS: BuPROPion XL (24 HR) 150 MG TABLET PO SCH (08:02)
[2019-02-15] MEDS: Sucralfate 1 GM TABLET PO SCH (08:02)
[2019-02-15] MEDS: Metoclopramide 10 MG/10 ML UD.LIQ PO SCH ×2 (08:02→10:55)
[2019-02-15] MEDS: Magnesium Oxide 400 MG TABLET PO SCH (08:03)
[2019-02-15] MEDS: Nicotine 21 MG PATCH.TD24 TD SCH (08:03)
[2019-02-15] MEDS ORDERED: Insulin LISPRO 300 UNITS/3 ML VIAL SQ ONE ×2 (09:29→15:02)
[2019-02-15] MEDS: Budesonide/Formoterol 160/4.5 1 PUFF INH IH SCH (10:07)
[2019-02-15 10:20] VITALS: BP 146/68
[2019-02-15] MEDS ORDERED: Insulin LISPRO 300 UNITS/3 ML VIAL SQ SCH (12:00)
== END 2019-02-15 15:59 | DRG 640 ==
LOC: EMEROOARM 17:06 → 3ANU 17:06 → SUATTDRO 23:12 → 3ANU 23:30 → SUATTDRO 02-09 16:15
PROVIDERS: ADMIT Internal Medicine; ATTEND Internal Medicine
PROC: ENDOEBX (2019-02-11 14:30)

== ENCOUNTER 2019-02-16 11:28 | Inpatient (IN) ==
[2019-02-16] MEDS ORDERED: Ondansetron 4 MG/2 ML VIAL IVP ONE (11:31)
[2019-02-16] MEDS ORDERED: Isovue-370 500 ML BOTTLE IVP ONE (11:41)
[2019-02-16 12:00] LABS: Basophils % 0.3 %; Eosinophils % 0.3 %; Hematocrit 41.4 % (35.3-44.9); Hemoglobin 13.8 g/dL (11.5-15.4); Immature Granulocytes % 0.4 % (0-4); Lymphocytes # 0.6 K/mcL (0.6-4.6); Lymphocytes % 5.5 %; Mean Corpuscular HGB Conc 33.3 g/dL (31.6-35.5); Mean Corpuscular Hemoglobin 28.8 pg (28.0-33.3); Mean Corpuscular Volume 86.4 fL (83.0-100.0); Mean Platelet Volume 9.3 fL (9.4-12.4); Monocytes # 0.9 K/mcL (0.0-1.3); Monocytes % 7.5 %; Neutrophils # 9.7 K/mcL (1.6-8.9); Platelet Count 213 K/mcL (140-400); Red Blood Count 4.79 M/mcL (3.82-4.97); Red Cell Distribution Width 13.4 % (11.5-14.5)
[2019-02-16 12:04] LABS: White Blood Count 11.3 K/mcL (4.3-11.1)
[2019-02-16] MEDS ORDERED: 0.9 % Sodium Chloride 1,000 ML IVC ONE (12:10)
[2019-02-16 12:36] LABS: Alanine Aminotransferase 11 Units/L (7-52); Albumin/Globulin Ratio 1.1 (1.1-2.2); Alkaline Phosphatase 110 Units/L (34-104); Aspartate Amino Transferase 9 Units/L (13-39); BUN/Creatinine Ratio 15 (6-26); Bilirubin,Direct 0.2 mg/dL (0.0-0.2); Bilirubin,Indirect 0.5 mg/dL (0.0-1.0); Bilirubin,Total 0.7 mg/dL (0.3-1.0); Blood Urea Nitrogen 13 mg/dL (8-23); Calcium 10.1 mg/dL (8.6-10.3); Carbon Dioxide 24 mEq/L (23-29); Chloride 94 mEq/L (98-107); Globulin 3.6 g/dL (2.4-3.5); Glucose 537 mg/dL (70-105); Lipase 6 Units/L (11-82); Osmolality,Calculated 300 (280-300); Potassium 4.6 mEq/L (3.5-5.1); Sodium 133 mEq/L (136-145); Total Protein 7.6 g/dL (6.4-8.9); Troponin I < 0.03 ng/mL (< 0.04); eGFR For African Americans > 60 (> 60); eGFR For Non-African Americans > 60 (> 60)
[2019-02-16 13:23] LABS: VBG HCO3 28 mEq/L (21-27); VBG PCO2 43 mmHg (41-51); VBG PH 7.42 pH Units (7.32-7.42); VBG PO2 98 mmHg (25-50)
[2019-02-16] MEDS ORDERED: Insulin Regular, Human 100 UNIT/ML SQ ONE (13:33)
[2019-02-16] MEDS ORDERED: Scopolamine Patch 1.5 MG PATCH.TD72 TD SCH (16:00)
[2019-02-16] MEDS ORDERED: Insulin LISPRO 300 UNITS/3 ML VIAL SQ SCH (16:33)
[2019-02-16] MEDS ORDERED: Ondansetron 4 MG/2 ML VIAL IVP PRN (16:33)
[2019-02-16] MEDS ORDERED: D5% in Water 1,000 ML IVC PRN (16:33)
[2019-02-16] MEDS ORDERED: Dextrose Gel 15 GM/37.5 ML TUBE PO PRN ×2 (16:33)
[2019-02-16] MEDS ORDERED: Naloxone 0.4 MG/ML INJ IVP PRN (16:33)
[2019-02-16] MEDS ORDERED: *HR* Dextrose 50 % in Water (Syg) 50 ML SYRINGE IVP PRN (16:33)
[2019-02-16] MEDS ORDERED: Methocarbamol 500 MG TABLET PO PRN (17:15)
[2019-02-16] MEDS ORDERED: *HR* LORazepam 1 MG TABLET PO PRN (17:15)
[2019-02-16] MEDS: 0.9 % Sodium Chloride 1,000 ML IVC SCH (17:16)
[2019-02-16] MEDS: *HR* Heparin 5,000 UNIT/ML VIAL SQ SCH (18:06)
[2019-02-16] MEDS: *HR* OxyCODONE Immed Rel 5 MG TABLET PO PRN (20:01)
[2019-02-16] MEDS: Magnesium Oxide 400 MG TABLET PO SCH (20:01)
[2019-02-16] MEDS: Insulin LISPRO 300 UNITS/3 ML VIAL SQ SCH (20:02)
[2019-02-16] MEDS: Metoclopramide 10 MG/10 ML UD.LIQ PO SCH (20:05)
[2019-02-16 20:54] LABS: Bilirubin,Urine Negative (Negative); Blood,Urine Negative (Negative); Clarity,Urine Cloudy (Clear); Color,Urine Yellow (Yellow); Glucose,Urine (UA) >=1000 mg/dL (Normal); Ketones,Urine 40 mg/dL (Negative); Leukocyte Esterase,Urine Negative (Negative); Nitrite,Urine Negative (Negative); Protein,Urine Negative (Neg-Trace); Specific Gravity,Urine > 1.030 (1.010-1.025); Urobilinogen,Urine Normal (Normal)
[2019-02-16 20:57] LABS: Hyaline Casts,Urine None Seen per lpf (None-Few); RBC,Urine 0-3 per hpf (0-3); Squamous Epithelial Cell,Urine Many per lpf (None-Few)
[2019-02-16 21:10] LABS: Bacteria,Urine Many per hpf (None-Few)
[2019-02-16] MEDS: Ipratropium/Albuterol Neb 3 ML IH SCH ×2 (21:17→21:40)
[2019-02-16] MEDS: dexAMETHasone 4 MG TABLET PO SCH (21:19)
[2019-02-16] MEDS: Budesonide/Formoterol 160/4.5 1 PUFF INH IH SCH (21:39)
[2019-02-16] MEDS ORDERED: Albuterol Neb 1.25 MG/3 ML VIAL IH PRN (22:00)
[2019-02-17] MEDS: Insulin LISPRO 300 UNITS/3 ML VIAL SQ SCH ×6 (00:59→20:53)
[2019-02-17] MEDS: *HR* OxyCODONE Immed Rel 5 MG TABLET PO PRN ×3 (02:49→20:46)
[2019-02-17] MEDS: Ipratropium/Albuterol Neb 3 ML IH SCH ×4 (04:05→22:19)
[2019-02-17 04:49] LABS: Basophils % 0.1 %; Eosinophils % 0.5 %; Hematocrit 35.6 % (35.3-44.9); Immature Granulocytes % 0.6 % (0-4); Lymphocytes # 0.5 K/mcL (0.6-4.6); Lymphocytes % 6.2 %; Mean Corpuscular Hemoglobin 28.9 pg (28.0-33.3); Mean Platelet Volume 9.2 fL (9.4-12.4); Monocytes # 0.5 K/mcL (0.0-1.3); Monocytes % 6.1 %; Neutrophils # 7.4 K/mcL (1.6-8.9); Platelet Count 194 K/mcL (140-400); Red Blood Count 4.19 M/mcL (3.82-4.97); Red Cell Distribution Width 13.5 % (11.5-14.5); Segmented Neutrophils % 86.5 %; White Blood Count 8.5 K/mcL (4.3-11.1)
[2019-02-17 04:54] LABS: BUN/Creatinine Ratio 17 (6-26); Blood Urea Nitrogen 9 mg/dL (8-23); Calcium 8.9 mg/dL (8.6-10.3); Carbon Dioxide 27 mEq/L (23-29); Chloride 101 mEq/L (98-107); Glucose 226 mg/dL (70-105); Hemoglobin 12.1 g/dL (11.5-15.4); Osmolality,Calculated 290 (280-300); Sodium 137 mEq/L (136-145); eGFR For African Americans > 60 (> 60); eGFR For Non-African Americans > 60 (> 60)
[2019-02-17] MEDS: *HR* Heparin 5,000 UNIT/ML VIAL SQ SCH ×2 (06:01→16:23)
[2019-02-17] MEDS: 0.9 % Sodium Chloride 1,000 ML IVC SCH ×2 (06:33→16:24)
[2019-02-17] MEDS: Sucralfate 1 GM TABLET PO SCH ×2 (07:56→16:22)
[2019-02-17] MEDS: Budesonide/Formoterol 160/4.5 1 PUFF INH IH SCH ×2 (10:40→22:19)
[2019-02-17] MEDS ORDERED: Lidocaine Jelly 11 ml Syringe TP ONE (10:48)
[2019-02-17] MEDS: dexAMETHasone 4 MG TABLET PO SCH ×2 (12:49→20:35)
[2019-02-17] MEDS: Aspirin 81 MG TAB.CHEW PO SCH (12:49)
[2019-02-17] MEDS: BuPROPion XL (24 HR) 150 MG TABLET PO SCH (12:50)
[2019-02-17] MEDS: (Roflumilast [Daliresp] 500 MCG) PO SCH (12:50)
[2019-02-17] MEDS: (Ezetimibe [Zetia] 10 MG) PO SCH (12:50)
[2019-02-17] MEDS: Magnesium Oxide 400 MG TABLET PO SCH ×2 (12:50→20:36)
[2019-02-17] MEDS ORDERED: Haloperidol Oral Conc 10 MG/5 ML UDC PO PRN (13:34)
[2019-02-17] MEDS: Nicotine 21 MG PATCH.TD24 TD SCH (13:57)
[2019-02-17] MEDS: Metoclopramide 10 MG/10 ML UD.LIQ PO SCH (14:20)
[2019-02-17] MEDS: *HR* LORazepam 1 MG TABLET PO SCH ×2 (16:22→20:36)
[2019-02-17] MEDS: OLANZapine 5 MG TAB.RAPDIS PO SCH (20:35)
[2019-02-18] MEDS: Insulin LISPRO 300 UNITS/3 ML VIAL SQ SCH ×7 (00:28→22:46)
[2019-02-18] MEDS: Acetaminophen 325 MG TABLET PO PRN ×3 (01:24→22:43)
[2019-02-18 03:09] LABS: Basophils % 0.3 %; Eosinophils % 0.6 %; Hematocrit 32.9 % (35.3-44.9); Hemoglobin 10.8 g/dL (11.5-15.4); Immature Granulocytes % 0.3 % (0-4); Lymphocytes # 0.5 K/mcL (0.6-4.6); Lymphocytes % 7.5 %; Mean Corpuscular HGB Conc 32.8 g/dL (31.6-35.5); Mean Corpuscular Hemoglobin 28.6 pg (28.0-33.3); Mean Corpuscular Volume 87.3 fL (83.0-100.0); Mean Platelet Volume 8.8 fL (9.4-12.4); Monocytes # 0.4 K/mcL (0.0-1.3); Monocytes % 5.4 %; Neutrophils # 5.7 K/mcL (1.6-8.9); Platelet Count 158 K/mcL (140-400); Red Blood Count 3.77 M/mcL (3.82-4.97); Red Cell Distribution Width 13.5 % (11.5-14.5); Segmented Neutrophils % 85.9 %; White Blood Count 6.7 K/mcL (4.3-11.1)
[2019-02-18 03:28] LABS: Blood Urea Nitrogen 9 mg/dL (8-23); Carbon Dioxide 27 mEq/L (23-29); Chloride 101 mEq/L (98-107); Glucose 193 mg/dL (70-105); Osmolality,Calculated 288 (280-300); Potassium 3.8 mEq/L (3.5-5.1); Sodium 137 mEq/L (136-145)
[2019-02-18] MEDS: Ipratropium/Albuterol Neb 3 ML IH SCH ×4 (03:29→21:54)
[2019-02-18 04:02] LABS: BUN/Creatinine Ratio 16 (6-26); eGFR For African Americans > 60 (> 60); eGFR For Non-African Americans > 60 (> 60)
[2019-02-18] MEDS: *HR* Heparin 5,000 UNIT/ML VIAL SQ SCH ×2 (06:12→17:06)
[2019-02-18] MEDS: Sucralfate 1 GM TABLET PO SCH ×2 (06:15→17:06)
[2019-02-18] MEDS: *HR* OxyCODONE Immed Rel 5 MG TABLET PO PRN ×2 (06:15→17:06)
[2019-02-18] MEDS: 0.9 % Sodium Chloride 1,000 ML IVC SCH ×2 (06:17→22:40)
[2019-02-18] MEDS: Magnesium Oxide 400 MG TABLET PO SCH ×2 (09:46→22:42)
[2019-02-18] MEDS: BuPROPion XL (24 HR) 150 MG TABLET PO SCH (09:46)
[2019-02-18] MEDS: dexAMETHasone 4 MG TABLET PO SCH ×2 (09:47→22:43)
[2019-02-18] MEDS: *HR* LORazepam 1 MG TABLET PO SCH ×3 (09:47→22:41)
[2019-02-18] MEDS: Aspirin 81 MG TAB.CHEW PO SCH (09:52)
[2019-02-18] MEDS: (Ezetimibe [Zetia] 10 MG) PO SCH (09:53)
[2019-02-18] MEDS: Nicotine 21 MG PATCH.TD24 TD SCH (09:53)
[2019-02-18] MEDS: (Roflumilast [Daliresp] 500 MCG) PO SCH (09:53)
[2019-02-18] MEDS: Budesonide/Formoterol 160/4.5 1 PUFF INH IH SCH ×2 (10:50→21:54)
[2019-02-18] MEDS ORDERED: Saliva Stimulant 100ml BOTTLE PO PRN (10:58)
[2019-02-18] MEDS: OLANZapine 5 MG TAB.RAPDIS PO SCH (22:41)
[2019-02-18] MEDS: Pantoprazole 40 MG in 0.9 % Sodium Chloride Mini Bag 100 ML IVC SCH (22:55)
[2019-02-18] MEDS: Clotrimazole Vag CRM 45 GM TUBE VG SCH (23:01)
[2019-02-19] MEDS: Pantoprazole 40 MG in 0.9 % Sodium Chloride Mini Bag 100 ML IVC SCH ×3 (03:03→17:39)
[2019-02-19] MEDS ORDERED: *HR* Promethazine 25 MG/ML VIAL IVP ONE (03:09)
[2019-02-19] MEDS: *HR* OxyCODONE Immed Rel 5 MG TABLET PO PRN (03:11)
[2019-02-19] MEDS: Ipratropium/Albuterol Neb 3 ML IH SCH ×6 (03:46→19:46)
[2019-02-19] MEDS ORDERED: *HR* LORazepam 2 MG/ML VIAL IVP ONE (04:07)
[2019-02-19] MEDS ORDERED: *HR* LORazepam 2 MG/ML VIAL ONE (04:12)
[2019-02-19] MEDS: Insulin LISPRO 300 UNITS/3 ML VIAL SQ SCH ×6 (04:32→23:42)
[2019-02-19 04:47] LABS: Hematocrit 34.3 % (35.3-44.9); Hemoglobin 11.2 g/dL (11.5-15.4); Mean Corpuscular HGB Conc 32.7 g/dL (31.6-35.5); Mean Corpuscular Hemoglobin 28.7 pg (28.0-33.3); Mean Corpuscular Volume 87.9 fL (83.0-100.0); Platelet Count 164 K/mcL (140-400); Red Cell Distribution Width 13.5 % (11.5-14.5); White Blood Count 4.9 K/mcL (4.3-11.1)
[2019-02-19 05:11] LABS: BUN/Creatinine Ratio 16 (6-26); Blood Urea Nitrogen 10 mg/dL (8-23); Carbon Dioxide 27 mEq/L (23-29); Chloride 103 mEq/L (98-107); Glucose 352 mg/dL (70-105); Osmolality,Calculated 295 (280-300); Potassium 3.6 mEq/L (3.5-5.1); Sodium 136 mEq/L (136-145); eGFR For African Americans > 60 (> 60); eGFR For Non-African Americans > 60 (> 60)
[2019-02-19] MEDS: *HR* Heparin 5,000 UNIT/ML VIAL SQ SCH ×2 (06:18→17:48)
[2019-02-19] MEDS: Magnesium Oxide 400 MG TABLET PO SCH ×2 (07:44→20:49)
[2019-02-19] MEDS: BuPROPion XL (24 HR) 150 MG TABLET PO SCH (07:44)
[2019-02-19] MEDS: Aspirin 81 MG TAB.CHEW PO SCH (07:45)
[2019-02-19] MEDS: *HR* LORazepam 1 MG TABLET PO SCH (07:45)
[2019-02-19] MEDS: Sucralfate 1 GM TABLET PO SCH ×2 (07:45→17:48)
[2019-02-19] MEDS: dexAMETHasone 4 MG TABLET PO SCH (07:45)
[2019-02-19] MEDS: Nicotine 21 MG PATCH.TD24 TD SCH (07:46)
[2019-02-19] MEDS: Budesonide/Formoterol 160/4.5 1 PUFF INH IH SCH ×2 (10:57→19:46)
[2019-02-19] MEDS: (Roflumilast [Daliresp] 500 MCG) PO SCH (12:33)
[2019-02-19] MEDS: (Ezetimibe [Zetia] 10 MG) PO SCH (12:33)
[2019-02-19] MEDS: 0.9 % Sodium Chloride 1,000 ML IVC SCH (12:38)
[2019-02-19] MEDS ORDERED: *HR* LORazepam 0.5 MG TABLET PO PRN (15:14)
[2019-02-19] MEDS ORDERED: Dexmedetomidine HCl 400 MCG/100 ML MLS IVC SCH (15:30)
[2019-02-19] MEDS: Pantoprazole 40 MG VIAL IVP SCH (17:57)
[2019-02-19] MEDS: Clotrimazole Vag CRM 45 GM TUBE VG SCH (20:45)
[2019-02-20] MEDS: 0.9 % Sodium Chloride 1,000 ML IVC SCH ×2 (02:06→16:09)
[2019-02-20 02:55] LABS: Basophils % 0.2 %; Eosinophils # 0.1 K/mcL (0.0-0.6); Eosinophils % 1.7 %; Hematocrit 33.8 % (35.3-44.9); Hemoglobin 11.4 g/dL (11.5-15.4); Immature Granulocytes % 0.7 % (0-4); Lymphocytes # 0.7 K/mcL (0.6-4.6); Lymphocytes % 16.5 %; Mean Corpuscular HGB Conc 33.7 g/dL (31.6-35.5); Mean Corpuscular Hemoglobin 28.3 pg (28.0-33.3); Mean Corpuscular Volume 83.9 fL (83.0-100.0); Mean Platelet Volume 8.5 fL (9.4-12.4); Monocytes # 0.3 K/mcL (0.0-1.3); Monocytes % 6.7 %; Platelet Count 188 K/mcL (140-400); Red Blood Count 4.03 M/mcL (3.82-4.97); Red Cell Distribution Width 13.5 % (11.5-14.5); Segmented Neutrophils % 74.2 %; White Blood Count 4.1 K/mcL (4.3-11.1)
[2019-02-20 03:14] LABS: BUN/Creatinine Ratio 11 (6-26); Blood Urea Nitrogen 7 mg/dL (8-23); Calcium 8.9 mg/dL (8.6-10.3); Carbon Dioxide 27 mEq/L (23-29); Chloride 105 mEq/L (98-107); Glucose 226 mg/dL (70-105); Osmolality,Calculated 293 (280-300); Potassium 3.4 mEq/L (3.5-5.1); Sodium 139 mEq/L (136-145); eGFR For African Americans > 60 (> 60); eGFR For Non-African Americans > 60 (> 60)
[2019-02-20] MEDS: Insulin LISPRO 300 UNITS/3 ML VIAL SQ SCH ×5 (03:59→23:54)
[2019-02-20] MEDS: *HR* Heparin 5,000 UNIT/ML VIAL SQ SCH ×2 (05:37→17:59)
[2019-02-20] MEDS: Pantoprazole 40 MG VIAL IVP SCH (05:37)
[2019-02-20] MEDS: BuPROPion XL (24 HR) 150 MG TABLET PO SCH (09:25)
[2019-02-20] MEDS: Aspirin 81 MG TAB.CHEW PO SCH (09:25)
[2019-02-20] MEDS: Magnesium Oxide 400 MG TABLET PO SCH ×2 (09:25→20:15)
[2019-02-20] MEDS: Nicotine 21 MG PATCH.TD24 TD SCH ×2 (09:25→15:31)
[2019-02-20] MEDS: Sucralfate 1 GM TABLET PO SCH ×2 (09:25→17:57)
[2019-02-20] MEDS: Ipratropium/Albuterol Neb 3 ML IH SCH ×3 (10:44→22:28)
[2019-02-20] MEDS: Budesonide/Formoterol 160/4.5 1 PUFF INH IH SCH ×2 (10:44→22:28)
[2019-02-20] MEDS: *HR* LORazepam 1 MG TABLET PO SCH ×2 (15:54→20:14)
[2019-02-20] MEDS: Clotrimazole Vag CRM 45 GM TUBE VG SCH (21:07)
[2019-02-21 03:59] LABS: Basophils % 0.3 %; Eosinophils # 0.1 K/mcL (0.0-0.6); Eosinophils % 1.8 %; Hematocrit 33.8 % (35.3-44.9); Immature Granulocytes % 0.8 % (0-4); Lymphocytes # 0.6 K/mcL (0.6-4.6); Lymphocytes % 13.8 %; Mean Corpuscular HGB Conc 32.5 g/dL (31.6-35.5); Mean Corpuscular Hemoglobin 28.8 pg (28.0-33.3); Mean Corpuscular Volume 88.5 fL (83.0-100.0); Mean Platelet Volume 8.8 fL (9.4-12.4); Monocytes # 0.3 K/mcL (0.0-1.3); Monocytes % 7.5 %; Platelet Count 177 K/mcL (140-400); Red Blood Count 3.82 M/mcL (3.82-4.97); Red Cell Distribution Width 13.5 % (11.5-14.5); Segmented Neutrophils % 75.8 %
[2019-02-21] MEDS: 0.9 % Sodium Chloride 1,000 ML IVC SCH (04:01)
[2019-02-21] MEDS: Insulin LISPRO 300 UNITS/3 ML VIAL SQ SCH ×5 (04:01→20:09)
[2019-02-21 04:04] LABS: BUN/Creatinine Ratio 13 (6-26); Blood Urea Nitrogen 7 mg/dL (8-23); Calcium 8.2 mg/dL (8.6-10.3); Carbon Dioxide 28 mEq/L (23-29); Chloride 106 mEq/L (98-107); Glucose 319 mg/dL (70-105); Osmolality,Calculated 302 (280-300); Potassium 3.4 mEq/L (3.5-5.1); Sodium 141 mEq/L (136-145); eGFR For African Americans > 60 (> 60); eGFR For Non-African Americans > 60 (> 60)
[2019-02-21] MEDS: *HR* Heparin 5,000 UNIT/ML VIAL SQ SCH ×2 (05:16→17:44)
[2019-02-21] MEDS ORDERED: Insulin DETEMIR 100 UNIT/ML X5UNITS SQ ONE (08:12)
[2019-02-21] MEDS: Sucralfate 1 GM TABLET PO SCH ×2 (08:28→15:52)
[2019-02-21] MEDS: *HR* LORazepam 1 MG TABLET PO SCH ×3 (08:28→20:08)
[2019-02-21] MEDS: Nicotine 21 MG PATCH.TD24 TD SCH (08:29)
[2019-02-21] MEDS: *HR* OxyCODONE Immed Rel 5 MG TABLET PO PRN ×2 (08:29→15:59)
[2019-02-21] MEDS: Magnesium Oxide 400 MG TABLET PO SCH ×2 (08:29→20:08)
[2019-02-21] MEDS: BuPROPion XL (24 HR) 150 MG TABLET PO SCH (08:29)
[2019-02-21] MEDS: Aspirin 81 MG TAB.CHEW PO SCH (08:29)
[2019-02-21] MEDS: Ipratropium/Albuterol Neb 3 ML IH SCH ×3 (09:49→22:35)
[2019-02-21] MEDS: Budesonide/Formoterol 160/4.5 1 PUFF INH IH SCH ×2 (09:49→22:35)
[2019-02-21] MEDS: Insulin DETEMIR 100 UNIT/ML X5UNITS SQ SCH (20:08)
[2019-02-21] MEDS: Acetaminophen 325 MG TABLET PO PRN (20:11)
[2019-02-21] MEDS: Clotrimazole Vag CRM 45 GM TUBE VG SCH (20:19)
[2019-02-22] MEDS: Insulin LISPRO 300 UNITS/3 ML VIAL SQ SCH ×6 (01:21→20:55)
[2019-02-22] MEDS: *HR* Heparin 5,000 UNIT/ML VIAL SQ SCH ×2 (05:09→16:58)
[2019-02-22] MEDS: Nicotine 21 MG PATCH.TD24 TD SCH (08:40)
[2019-02-22] MEDS: Magnesium Oxide 400 MG TABLET PO SCH ×2 (08:41→20:54)
[2019-02-22] MEDS: BuPROPion XL (24 HR) 150 MG TABLET PO SCH (08:42)
[2019-02-22] MEDS: Sucralfate 1 GM TABLET PO SCH ×2 (08:42→16:06)
[2019-02-22] MEDS: *HR* LORazepam 1 MG TABLET PO SCH ×3 (08:42→20:54)
[2019-02-22] MEDS: Aspirin 81 MG TAB.CHEW PO SCH (08:43)
[2019-02-22] MEDS: Insulin DETEMIR 100 UNIT/ML X5UNITS SQ SCH ×2 (08:54→20:55)
[2019-02-22] MEDS: Budesonide/Formoterol 160/4.5 1 PUFF INH IH SCH ×2 (10:12→22:20)
[2019-02-22] MEDS: Ipratropium/Albuterol Neb 3 ML IH SCH ×3 (10:12→22:20)
[2019-02-22] MEDS: Acetaminophen 325 MG TABLET PO PRN (20:54)
[2019-02-22] MEDS: Clotrimazole Vag CRM 45 GM TUBE VG SCH (21:03)
[2019-02-22] MEDS ORDERED: Ondansetron 4 MG/2 ML VIAL IVP PRN (21:08)
[2019-02-23] MEDS: Insulin LISPRO 300 UNITS/3 ML VIAL SQ SCH ×5 (01:29→15:58)
[2019-02-23 03:55] LABS: Basophils % 0.2 %; Eosinophils # 0.1 K/mcL (0.0-0.6); Eosinophils % 1.4 %; Hematocrit 36.6 % (35.3-44.9); Hemoglobin 12.4 g/dL (11.5-15.4); Immature Granulocytes % 0.2 % (0-4); Lymphocytes # 0.6 K/mcL (0.6-4.6); Lymphocytes % 14.2 %; Mean Corpuscular HGB Conc 33.9 g/dL (31.6-35.5); Mean Corpuscular Hemoglobin 28.7 pg (28.0-33.3); Mean Corpuscular Volume 84.7 fL (83.0-100.0); Mean Platelet Volume 8.7 fL (9.4-12.4); Monocytes # 0.2 K/mcL (0.0-1.3); Monocytes % 5.6 %; Neutrophils # 3.4 K/mcL (1.6-8.9); Platelet Count 206 K/mcL (140-400); Red Blood Count 4.32 M/mcL (3.82-4.97); Red Cell Distribution Width 13.5 % (11.5-14.5); Segmented Neutrophils % 78.4 %; White Blood Count 4.3 K/mcL (4.3-11.1)
[2019-02-23 04:03] LABS: BUN/Creatinine Ratio 13 (6-26); Blood Urea Nitrogen 8 mg/dL (8-23); Calcium 8.8 mg/dL (8.6-10.3); Carbon Dioxide 28 mEq/L (23-29); Chloride 103 mEq/L (98-107); Glucose 230 mg/dL (70-105); Osmolality,Calculated 292 (280-300); Potassium 3.8 mEq/L (3.5-5.1); Sodium 138 mEq/L (136-145); eGFR For African Americans > 60 (> 60); eGFR For Non-African Americans > 60 (> 60)
[2019-02-23] MEDS: *HR* Heparin 5,000 UNIT/ML VIAL SQ SCH ×2 (05:09→17:59)
[2019-02-23] MEDS: Ipratropium/Albuterol Neb 3 ML IH SCH ×2 (07:16→16:05)
[2019-02-23] MEDS: Budesonide/Formoterol 160/4.5 1 PUFF INH IH SCH (07:17)
[2019-02-23] MEDS: Insulin DETEMIR 100 UNIT/ML X5UNITS SQ SCH (08:52)
[2019-02-23] MEDS: BuPROPion XL (24 HR) 150 MG TABLET PO SCH (08:53)
[2019-02-23] MEDS: Nicotine 21 MG PATCH.TD24 TD SCH (08:53)
[2019-02-23] MEDS: *HR* LORazepam 1 MG TABLET PO SCH ×2 (08:53→15:45)
[2019-02-23] MEDS: Aspirin 81 MG TAB.CHEW PO SCH (08:53)
[2019-02-23] MEDS: Magnesium Oxide 400 MG TABLET PO SCH (08:53)
[2019-02-23] MEDS: Sucralfate 1 GM TABLET PO SCH ×2 (08:53→15:45)
[2019-02-23] MEDS ORDERED: Acetaminophen 325 MG TABLET PO PRN (08:55)
[2019-02-23] MEDS ORDERED: *HR* OxyCODONE Immed Rel 5 MG TABLET PO PRN (08:55)
[2019-02-23] MEDS ORDERED: OLANZapine 5 MG TAB.RAPDIS PO SCH (12:45)
[2019-02-23 15:52] VITALS: BP 123/62
[2019-02-23] MEDS ORDERED: Sennosides/Docusate Sodium TABLET PO SCH (21:00)
== END 2019-02-23 18:24 | DRG 393 ==
LOC: EMEROOARM 11:28 → CDU 11:28 → SUATTDRO 14:35 → CDU 15:30 → SUATTDRO 02-17 12:31 → 3BNU 02-17 14:15 → 2NNU 02-19 19:47 → 2ANU 02-21 07:24
PROVIDERS: ADMIT Internal Medicine; ATTEND Student in an Organized Health Care Education/Training Program

== ENCOUNTER 2019-03-07 21:39 | Observation (INO) ==
[2019-03-07] MEDS ORDERED: Ondansetron 4 MG/2 ML VIAL IVP STA (21:41)
[2019-03-07] MEDS ORDERED: *HR* HYDROmorphone (PF) 1 MG/ML SYRINGE IVP ONE ×2 (22:28→23:19)
[2019-03-07 22:44] LABS: Basophils % 0.3 %; Eosinophils # 0.1 K/mcL (0.0-0.6); Eosinophils % 1.6 %; Hemoglobin 14.3 g/dL (11.5-15.4); Immature Granulocytes % 0.2 % (0-4); Lymphocytes # 0.7 K/mcL (0.6-4.6); Mean Corpuscular HGB Conc 33.3 g/dL (31.6-35.5); Mean Corpuscular Hemoglobin 28.8 pg (28.0-33.3); Mean Corpuscular Volume 86.5 fL (83.0-100.0); Mean Platelet Volume 9.6 fL (9.4-12.4); Monocytes # 0.4 K/mcL (0.0-1.3); Platelet Count 164 K/mcL (140-400); Red Blood Count 4.97 M/mcL (3.82-4.97); Red Cell Distribution Width 13.8 % (11.5-14.5); Segmented Neutrophils % 79.9 %; White Blood Count 6.3 K/mcL (4.3-11.1)
[2019-03-07 23:03] LABS: BUN/Creatinine Ratio 14 (6-26); Blood Urea Nitrogen 10 mg/dL (8-23); Calcium 9.6 mg/dL (8.6-10.3); Carbon Dioxide 24 mEq/L (23-29); Chloride 95 mEq/L (98-107); Glucose 355 mg/dL (70-105); Magnesium 1.5 mg/dL (1.6-2.6); Osmolality,Calculated 297 (280-300); Phosphorous 2.9 mg/dL (2.7-4.5); Potassium 3.5 mEq/L (3.5-5.1); Sodium 137 mEq/L (136-145); eGFR For African Americans > 60 (> 60); eGFR For Non-African Americans > 60 (> 60)
[2019-03-07] MEDS ORDERED: Promethazine 25 MG in 0.9 % Sodium Chloride 50 ML IVPB ONE (23:19)
[2019-03-08] MEDS ORDERED: Ondansetron 4 MG/2 ML VIAL IVP PRN (00:23)
[2019-03-08] MEDS ORDERED: Metoclopramide 10 MG/2 ML VIAL IVP PRN (00:23)
[2019-03-08] MEDS ORDERED: *HR* Promethazine 25 MG/ML VIAL IVP PRN (00:24)
[2019-03-08] MEDS ORDERED: Dextrose Gel 15 GM/37.5 ML TUBE PO PRN ×2 (00:25)
[2019-03-08] MEDS ORDERED: *HR* Dextrose 50 % in Water (Syg) 50 ML SYRINGE IVP PRN (00:25)
[2019-03-08] MEDS ORDERED: Ketorolac 30 MG/ML VIAL IVP PRN (00:26)
[2019-03-08] MEDS ORDERED: Haloperidol Lactate 5 MG/ML VIAL IVP PRN (00:30)
[2019-03-08 01:21] VITALS: BP 147/84
[2019-03-08] MEDS ORDERED: Insulin Human Regular 10 UNIT in 0.9 % Sodium Chloride 10 ML IV ONE (02:24)
[2019-03-08] MEDS ORDERED: Insulin LISPRO 300 UNITS/3 ML VIAL SQ SCH (06:00)
[2019-03-08] MEDS ORDERED: *HR* Heparin 5,000 UNIT/ML VIAL SQ SCH (06:00)
== END 2019-03-08 05:19 | disposition other institution (70) ==
LOC: EMEROOARM 21:39 → 2ANU 21:39
PROVIDERS: ADMIT Internal Medicine; ATTEND Internal Medicine